=== PATIENT | female | born 1935 | race Caucasian/White ===

== ENCOUNTER 2019-08-13 06:00 | Outpatient (RCR) | payer MEDICARE, OTHER, SELFPAY | END 2019-09-11 23:59 | disposition home or self-care (01) | LOC: SPT 06:00 | PROVIDERS: Family Provider Electrodiagnostic Medicine; PCP Electrodiagnostic Medicine; Referring Provider Electrodiagnostic Medicine; Visit Provider Electrodiagnostic Medicine | DX: R60.0 Localized edema (principal); I89.0 Lymphedema, not elsewhere classified | CPT/HCPCS: 97140; 97161 ==

== ENCOUNTER 2019-08-13 08:09 | Outpatient (CLI) | payer MEDICARE, OTHER, SELFPAY ==
--- NOTE | 2019-08-13 | USCV_ITS ---
Gómez Sheila Age: 84 Gender: F : 1935 Exam Date: 08/13/2019 09:31 Ordering Phys: Delvis Ortiz DO Technologist: Radha Muller Exam Location: [facility] [place] Indication: MURMUR BP: / HR: 74 Rhythm: Sinus Technical Quality: Technically difficult study MEASUREMENTS (Male / Female) Normal Values 2D ECHO LV Diastolic Diameter PLAX 4.9 cm 4.2 - 5.9 / 3.9 - 5.3 cm LV Systolic Diameter PLAX 3.8 cm LV Chamber Size 3.6 cm IVS Diastolic Thickness 1.0 cm 0.6 - 1.0 / 0.6 - 0.9 cm IVS Systolic Thickness 1.6 cm LVPW Diastolic Thickness 1.4 cm 0.6 - 1.0 / 0.6 - 0.9 cm LVPW Systolic Thickness 2.1 cm RV Chamber Size 2.7 cm LVOT Diameter 2.0 cm LV Ejection Fraction 2D Teich 47.1 % LV Ejection Fraction MOD 2C 66.3 % LV Ejection Fraction 2C AL 62.8 % LA Diameter 4.5 cm LA Width 3.4 cm LA Height 5.1 cm RA Width 2.8 cm RA Height 6.6 cm Aorta at Sinotubular Diameter 3.3 cm M-MODE LV Diastolic Diameter MM 4.9 cm 4.2 - 5.9 / 3.9 - 5.3 cm LV Systolic Diameter MM 2.8 cm LV Ejection Fraction MM Teich 74.1 % IVS Diastolic Thickness MM 1.4 cm 0.6 - 1.0 / 0.6 - 0.9 cm IVS Systolic Thickness MM 1.6 cm LVPW Diastolic Thickness MM 1.6 cm 0.6 - 1.0 / 0.6 - 0.9 cm LVPW Systolic Thickness MM 1.9 cm RV Diastolic Diameter MM 2.4 cm Aortic Annulus Diameter 3.9 cm LA Ao Ratio MM 1.2 MV E Point Septal Separation 0.6 cm DOPPLER AV Peak Velocity 182.0 cm/s LVOT Peak Velocity 90.0 cm/s AV Area Cont Eq vti 1.9 cm squared AV Area Cont Eq pk 1.6 cm squared MV Area PHT 4.0 cm squared Mitral E to A Ratio 1.2 MV E' Velocity 9.0 cm/s Mitral E to MV E' Ratio 13.2 Mitral E to LV E' Lateral Ratio 11.2 Mitral E to LV E' Septal Ratio 16.0 TR Peak Velocity 264.9 cm/s TR Peak Gradient 28.1 mmHg TR Mean Velocity 198.8 cm/s TR Mean Gradient 18.5 mmHg TR Velocity Time Integral 81.2 cm TV Peak E Velocity 70.0 cm/s Right Atrial Pressure 15.0 mmHg Pulmonary Artery Systolic Pressu 43.1 mmHg PV Peak Velocity 86.0 cm/s RV Acceleration Time 0.2 s RV Ejection Time 0.4 s RV AcT/ET 0.5 FINDINGS Left Ventricle Normal left ventricular cavity size. Normal left ventricular systolic function. No regional wall motion abnormalities. Left ventricular ejection fraction is estimated at 60 %. Grade I/IV diastolic dysfunction (abnormal relaxation filling pattern), normal to mildly elevated filling pressures. Right Ventricle The right ventricle is normal in size and function. RVSP could not be calculated due to incomplete tricuspid regurgitation velocity profile. Right Atrium The right atrium is normal in size. Left Atrium Moderately increased left atrial size. Mitral Valve Mildly thickened mitral valve. Moderate mitral annular calcification. No mitral valve stenosis. Trace mitral valve regurgitation. Aortic Valve Structurally normal aortic valve without significant sclerosis or stenosis. There is no aortic regurgitation. Tricuspid Valve Structurally normal tricuspid valve without significant stenosis or regurgitation. Pulmonary artery systolic pressure is normal. Pulmonic Valve Structurally normal pulmonic valve without significant stenosis. There is no pulmonic regurgitation. Pericardium Normal pericardium without effusion. Aorta Normal ascending aorta dimension. CONCLUSIONS 1-Normal left ventricular cavity size. Normal left ventricular systolic function. No regional wall motion abnormalities. Left ventricular ejection fraction is estimated at 60 %. Grade I/IV diastolic dysfunction (abnormal relaxation filling pattern), normal to mildly elevated filling pressures. 2-Moderately increased left atrial size. 3-The right ventricle is normal in size and function. RVSP could not be calculated due to incomplete tricuspid regurgitation velocity profile. 4-There is no pericardial effusion. 5-There are no prior echocardiogram studies to compare. Brock Hoover MD (Electronically Signed) Final Date: 13 August 2019 14:49 S
== END 2019-08-13 08:10 | disposition home or self-care (01) ==
LOC: RAD 08:22
PROVIDERS: PCP Electrodiagnostic Medicine; Visit Provider Electrodiagnostic Medicine
DX: I51.7 Cardiomegaly (principal); R01.1 Cardiac murmur, unspecified; R59.1 Generalized enlarged lymph nodes; R60.0 Localized edema
CPT/HCPCS: 93306

== ENCOUNTER 2019-08-25 13:58 | Outpatient (CLI) | payer MEDICARE, OTHER, SELFPAY ==
--- NOTE | 2019-08-26 10:25 | ONC CON_ITS ---
Dr. Aguila New Patient Note Patient: Sheila Magaña Unit #: [id number]: 1935 Dicatated By: Ray Aguila M.D.Date of Visit: Aug 25, 2019 Onc MED New Patient/Consult Referring Physician: Dr. Delvis Ortiz M.D. Chief Complaint: Anemia and thrombocytopenia. History of Present Illness: This is an 84 year-old woman with a mild anemia and thrombocytopenia. She has hypertension, dyslipidemia, and chronic kidney disease. Her main problem recently is that she has been having severe swelling in the lower extremities. She currently is on diuretic therapy with a combination of furosemide and spironolactone, and she has started physical therapy for lymphedema. Her echocardiogram on 08/13/2019 showed normal left ventricular systolic function with estimated ejection fraction of 60%. There were no significant valve abnormalities noted. Her recent laboratory studies from 08/11/2019 included CBC showing hemoglobin low at 10.2 g with hematocrit 28.8%. The red cell indices were in the upper normal range. The white blood cell count was 5000 with the differential showing 67% neutrophils, 21% lymphocytes, and 9% monocytes. The platelet count was low at 70,000. Comprehensive metabolic profile showed elevated BUN and creatinine at 26 and 1.53 mg/dL. Bilirubin was mildly elevated at 2.2 mg/dL with alkaline phosphatase also mildly elevated 153/130 U/L. The SGOT was also slightly elevated. Albumin was low at 3.0 g/dL. TSH was normal at 2.83 mIU/L. Her BNP level was just mildly elevated at 300 pg/mL. She has very limited activity, which appears to be due to a combination of weakness, back pain, shortness of breath, and the swelling. She is able to get up and around, but she does very little housework now. ECOG score is 2. She does not have much appetite, but she has had significant weight gain, by her estimate in the range of at least 30 pounds. She does not have fever or night sweats. She says she falls asleep very easily during the daytime. She is known to have obstructive sleep apnea and in the past she had been on CPAP. She says she stopped using it because it caused too much dryness. She did not think it was helping. She has cough and she has shortness of breath with activity. She sometimes hears her heart beating. She does not complain of chest pain. She was having acid reflux, but it has improved. She recently has had diarrhea, but she that seems to be getting better with Metamucil. She has urinary frequency and urgency, and she has some associated incontinence. She says she has pain all over, particularly in her knees. She has been having muscle cramps in the hip area. She does not complain of headache. She has had episodes of vertigo. She says the fingertips on both hands have not been feeling normal. She normally does bruise easily, and she has not had other bleeding manifestations. Past Medical History: Her medical history includes anxiety/depression, degenerative arthritis, dyslipidemia, fibromyalgia, gastroesophageal reflux disease, gout, hypertension, narcolesy, obstructive sleep apnea, vitamin B12 deficiency, and vitamin D deficiency. Past Surgical History: Her surgical/procedural history includes appendectomy, bilateral cataract excisions, cholecystectomy, excision of sebaceous cyst x 2, and laser surgery left eye. Medications: Atenolol 1 Tablet (of 25 mg) Oral daily, Furosemide 1 Tablet (of 40 mg) Oral b.i.d., Pantoprazole Sodium 1 Tablet (of 40 mg) Tablet, enteric coated Oral daily, Spironolactone 1 Tablet (of 25 mg) Oral daily, Vitamin D3 1 Capsule Oral daily Allergies: No Known Allergies. Social History: Ms. Magaña is . She is retired. 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 She had smoked some and she had some alcohol use when she was much younger, but she quit both many years ago. Family History: Father of cancer at age 52, type unknown to the patient. Mother of sepsis 1 week after the patient's . She had no siblings. A maternal cousin of prostate cancer. Review Of Symptoms: Constitutional - She has very limited activity, but she is up and around. She does a little bit of light work at home. She does not have much appetite. She recently had significant weight gain, at least 30 pounds or more. She does not have fever or night sweats. She complains that she gets really cold on the inside. ECOG score is 2, Eyes - She recently has had laser surgery on the left eye, ENMT - She has not had hearing loss or tinnitus. She has congestion. No mouth sores. No sore throat or difficulty swallowing, Hematologic/Lymphatic - No abnormal bruising or bleeding, Respiratory - She has shortness of breath with activity. She has cough. No pleuritic pain or hemoptysis, Cardiovascular - No angina pain. No palpitations. She sometimes hears her heart beating, Gastrointestinal - No nausea or vomiting. She was having acid reflux, but lately it has been better. She has been having diarrhea, but that is getting better with Metamucil. No blood in the stool or black stools, Genitourinary (F) - No dysuria or hematuria. She has urinary frequency with urgency and with some incontinence, Musculoskeletal - She has pain all over. The most significant is seen in her back, which does limit her activity. She also has pain in her knees. Lately she has been having muscle cramps in the hip area, Integumentary - She had developed weeping skin ulcerations on both legs, but those are healing, Neurologic - No headache. She has had episodes of vertigo. She says the fingertips of both hands don't feel normal, Psychiatric - She has anxiety and depression. Lately she has been feeling down. She has difficulty staying awake during the daytime. Vital Signs: Performed on Aug 25, 2019 15:09: 0, 52.89 (HIGH), 2.29 sq.m, 63.00 in, 99 %, 63 /min, 26 /min, 130/49 mm(hg), 98.0 F (LOW), and 298.6 lbs (HIGH). Physical Examination: Constitutional - She appears generally weak, but not acutely ill, Eyes - Sclerae nonicteric. Conjunctivae clear, ENMT - No lesions noted in the oral cavity, Neck - No mass or thyromegaly, Hematologic/Lymphatic - No cervical, clavicular, or axillary adenopathy, Respiratory - Lungs sound clear with good air movement bilaterally, Cardiovascular - Heart rhythm is regular. There is a II/ systolic murmur. There is no gallop or rub noted, Abdomen - Distended. Liver and spleen are not overtly enlarged. There is no abdominal mass or noted and there is no obvious ascites. There is no inguinal adenopathy, Back/Spine - No spine or CVA tenderness noted, Extremities - There is 3 to 4+ lower extremity edema. Both legs are wrapped. I am not able to palpate pedal pulses, Integumentary - There are a few scattered ecchymoses. There are no petechiae noted. There are no suspicious skin lesions noted, Neurologic - No focal neurologic deficits noted. Impression: 1. Patient with mild anemia and thrombocytopenia. The cause is uncertain. The most likely causes would be occult liver disease/hypersplenism or myelodysplastic syndrome. 2. She has severe lower extremity edema. I do not think that a specific cause has been determined. 3. She has mildly elevated total bilirubin and slightly elevated liver enzymes. The cause/clinical significance is uncertain. Her other medical illnesses include: 4. Hypertension. 5. Hyperlipidemia. 6. Chronic kidney disease. 7. GERD. 8. Obstructive sleep apnea and excessive daytime somnolence. 9. Degenerative arthritis. 10. Fibromyalgia. 11. History of gout. 12. Vitamin B12 deficiency, for which she has been on replacement therapy. 13. Vitamin D deficiency. 14. Anxiety/depression. Plan: The laboratory findings and clinical implications were reviewed with the patient. She will be scheduled to have additional laboratory studies to include CBC, comprehensive metabolic profile, reticulocyte count, LDH level, haptoglobin level, serum iron studies and ferritin, folate level, sed rate, serum protein electrophoresis, and free light chain assay. I will check a hepatitis profile and I will review the blood smear. She also will be scheduled for CT abdomen/pelvis. She will have further evaluation as indicated. Ultimately, she may need to undergo bone marrow aspiration/biopsy. Signed By: Ray Aguila M.D. <<Signature on File>>
== END 2019-08-25 13:59 | disposition home or self-care (01) ==
LOC: ONCMED 13:59
PROVIDERS: Family Provider Electrodiagnostic Medicine; PCP Electrodiagnostic Medicine; Referring Provider Electrodiagnostic Medicine; Visit Provider Internal Medicine Medical Oncology
DX: D69.6 Thrombocytopenia, unspecified (principal); E78.5 Hyperlipidemia, unspecified; I12.9 Hypertensive chronic kidney disease with stage 1 through stage 4 chronic kidney disease, or unspecified chronic kidney disease; N18.9 Chronic kidney disease, unspecified; I89.0 Lymphedema, not elsewhere classified; F41.8 Other specified anxiety disorders; M19.90 Unspecified osteoarthritis, unspecified site; M79.7 Fibromyalgia; K21.9 Gastro-esophageal reflux disease without esophagitis; M10.9 Gout, unspecified; G47.33 Obstructive sleep apnea (adult) (pediatric); E53.8 Deficiency of other specified B group vitamins; E55.9 Vitamin D deficiency, unspecified; R17 Unspecified jaundice; R74.8 Abnormal levels of other serum enzymes; Z79.899 Other long term (current) drug therapy
CPT/HCPCS: 99205

== ENCOUNTER 2019-08-26 14:04 | Outpatient (RCR) | payer MEDICARE, OTHER, SELFPAY ==
[2019-08-26 15:50] LABS: Basophils % 0.2 %; Eosinophils # 0.1 10^3/uL (0.0-0.8); Eosinophils % 2.6 %; Hematocrit 29.5 % (37.0-47.0); Hemoglobin 9.5 g/dL (11.5-15.3); Lymphocytes # 1.5 10^3/uL (0.8-4.8); Lymphocytes % 29.5 %; Mean Corpuscular HGB Conc 32.2 g/dL (30.0-36.0); Mean Corpuscular Hemoglobin 33.6 pg (28.0-34.0); Mean Corpuscular Volume 104.2 fL (81-99); Monocytes # 0.5 10^3/uL (0.2-0.9); Monocytes % 8.8 %; Neutrophils % 58.7 %; Nucleated Red Blood Cells % 0 %; Platelet Count 71 10^3/cmm (130-400); Red Blood Count 2.83 10^6/uL (4.1-5.3); Red Cell Distribution Width 15.2 % (12.1-15.1); White Blood Count 5.1 10^3/uL (4.0-10.0)
[2019-08-26 15:52] LABS: Alanine Aminotransferase 20 U/L (0-33); Albumin Level 3.2 g/dL (3.5-5.2); Alkaline Phosphatase 160 IU/L (35-105); Anion Gap 16.7 (5-19); Aspartate Amino Transferase 39 U/L (0-32); Blood Urea Nitrogen 22 mg/dL (8-23); Calcium 9.9 mg/Dl (8.8-10.2); Carbon Dioxide 24 mmol/L (22-29); Chloride 104 mmol/L (98-107); Ferritin 88 ng/mL (15-150); Globulin 2.8 g/dL (1.3-4.6); Glucose 140 mg/dL (74-106); Iron 67 ug/dL (37-145); Lactate Dehydrogenase 332 U/L (135-214); Percent Saturation 32.3 % (20-50); Potassium 3.7 mmol/L (3.5-5.1); Sodium 141 mmol/L (136-145); Total Bilirubin 2.3 mg/dL (0.15-1.2); Total Iron Binding Capacity 207 mg/dL; Unsaturated Iron Binding 140 ug/dL (112-347)
[2019-08-26 16:31] LABS: Erythrocyte Sedimentation Rate 22 mm/hr (0-15)
[2019-08-27 08:10] LABS: Hepatitis A Antibody IgM. Non-Reactive (Nonreactive); Hepatitis B Surface AB. 3.5 (0-8.5); Hepatitis B Surface Antigen. Non-Reactive (Nonreactive); Hepatitis C Virus Antibody Non-Reactive (Nonreactive)
[2019-08-27 10:06] LABS: Folate Level 7.2 ng/mL (4.8-37.3)
[2019-08-27 15:36] LABS: ALBUMIN 2.9 g/dL (3.8-4.8); ALPHA 1 GLOBULIN 0.3 g/dL (0.2-0.3); ALPHA 2 GLOBULIN 0.5 g/dL (0.5-0.9); BETA 1 GLOBULIN 0.3 g/dL (0.4-0.6); BETA 2 GLOBULIN 0.3 g/dL (0.2-0.5); GAMMA GLOBULIN 1.7 g/dL (0.8-1.7); KAPPA LIGHT CHAIN, FREE, SERUM 94.4 mg/L (3.3-19.4); KAPPA/LAMBDA LIGHT CHAINS FREE 1.54 (0.26-1.65); LAMBDA LIGHT CHAIN, FREE, SERU 61.2 mg/L (5.7-26.3); PROTEIN, TOTAL 5.9 g/dL (6.1-8.1)
== END 2019-09-11 23:59 | disposition home or self-care (01) ==
LOC: ONCMED 14:04
PROVIDERS: Family Provider Electrodiagnostic Medicine; PCP Electrodiagnostic Medicine; Visit Provider Internal Medicine Medical Oncology
DX: D64.9 Anemia, unspecified (principal); D69.6 Thrombocytopenia, unspecified; R79.89 Other specified abnormal findings of blood chemistry; R17 Unspecified jaundice
CPT/HCPCS: 80053; 82728; 82746; 83010; 83540; 83550; 83615; 83883; 84155; 84165; 85025; 85045; 85651; 86705; 86706; 86709; 86803; 87340

== ENCOUNTER 2019-08-31 08:23 | Outpatient (CLI) | payer MEDICARE, OTHER, SELFPAY ==
--- NOTE | 2019-08-31 08:35 | CT_ITS ---
WS: [id number] CT ABDOMEN PELVIS TECHNIQUE: Contrast-enhanced CT of the abdomen and pelvis with coronal and sagittal reformatted image s. CLINICAL INFORMATION: ANEMIA/EDEMA/ELEVATED BILIBURN LIVER ENZYMES COMPARISON: None. DLP: 2004.[address] scans at [facility] use at least one of these dose optimization techniques: automat ed exposure control; mA and/or kV adjustment per patient size (includes targeted exams where dose is matched to clinical indication); or iterative reconstruction. FINDINGS: Cirrhotic configuration to the liver with capsular nodularity. Mild perihepatic and perisplenic ascit es. Findings compatible with cirrhosis and portal hypertension. Splenomegaly. Spleen measures 19 cm p ole-to-pole. 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 Gastroesophageal varices. Lung bases are well aerated. Slight atelectasis in the lung bases. Diffuse body wall anasarca. Divert iculosis. No evidence of acute diverticulitis. No evidence of small or large bowel obstruction. Fatty atrophy of the pancreas. Abdominal aortic calcification. Renal cortical atrophy. Adrenal glands are normal. Lumbar scoliosis convex left. CT/CT abdomen pelvis w con* [id number] IMPRESSION: 1. Cirrhotic configuration to the liver with splenomegaly consistent with port al hypertension. 2. Multiple varices in the upper abdomen and gastroesophageal junction. 3. Mild to moderate perihepatic and perisplenic ascites. 4. Diffuse body wall anasarca. Small amount of pelvic ascites. 5. Diverticulosis. No evidence of acute diverticulitis
[2019-08-31] MEDS: iohexol 300 mg/mL 50 mL Btl IV (08:54)
[2019-08-31] MEDS: iodixanol 320 mg/mL 100mL Btl IV (10:31)
== END 2019-08-31 08:24 | disposition home or self-care (01) ==
LOC: RAD 08:31
PROVIDERS: Family Provider Electrodiagnostic Medicine; PCP Electrodiagnostic Medicine; Visit Provider Internal Medicine Medical Oncology
DX: D64.9 Anemia, unspecified (principal); R74.8 Abnormal levels of other serum enzymes; R60.9 Edema, unspecified; R16.1 Splenomegaly, not elsewhere classified; R60.1 Generalized edema; R18.8 Other ascites; K57.90 Diverticulosis of intestine, part unspecified, without perforation or abscess without bleeding; I86.4 Gastric varices
CPT/HCPCS: 74177

== ENCOUNTER 2019-09-12 06:00 | Outpatient (RCR) | payer MEDICARE, OTHER, SELFPAY | END 2019-10-10 23:59 | disposition home or self-care (01) | LOC: SPT 06:00 | PROVIDERS: Family Provider Electrodiagnostic Medicine; PCP Electrodiagnostic Medicine; Referring Provider Electrodiagnostic Medicine; Visit Provider Electrodiagnostic Medicine | DX: R59.1 Generalized enlarged lymph nodes (principal); R60.0 Localized edema; R01.1 Cardiac murmur, unspecified | CPT/HCPCS: 97140; 97530 ==

== ENCOUNTER → 2019-09-23 12:25 | Outpatient (BNVA) | payer MEDICARE, OTHER, SELFPAY | PROVIDERS: Family Provider Electrodiagnostic Medicine; PCP Electrodiagnostic Medicine; Visit Provider Internal Medicine Cardiovascular Disease | DX: I50.33 Acute on chronic diastolic (congestive) heart failure (principal); R06.02 Shortness of breath; R07.9 Chest pain, unspecified | CPT/HCPCS: 80048; 83880; 85025 ==

== ENCOUNTER 2019-10-23 | Outpatient (RCR) | payer MEDICARE, OTHER, SELFPAY | END 2019-10-24 | disposition home or self-care (01) | LOC: SPT | PROVIDERS: PCP Electrodiagnostic Medicine; Referring Provider Electrodiagnostic Medicine; Visit Provider Electrodiagnostic Medicine | DX: R59.1 Generalized enlarged lymph nodes (principal); R60.0 Localized edema | CPT/HCPCS: 97140 ==

== ENCOUNTER 2019-10-23 17:42 | Inpatient (IN) | payer MEDICARE, OTHER, SELFPAY ==
[2019-10-23 17:31] VITALS: BMI 53.3
[2019-10-23 17:37] VITALS: BP 127/72; PULSE 65; RESP 20; TEMP 36.9; O2SAT 98
--- NOTE | 2019-10-23 17:45 | ED_ITS ---
Documented by User: Bud Mcallister DO 10/25/19 23:36 HPI - Weakness General: Chief complaint: Weakness Stated complaint: NOT FEELING WELL Time Seen by Provider: 10/23/19 17:45 History of Present Illness: HPI Narrative: 84-year-old female brought in by EMS attended by family. She has been very weak lately she fell a couple of days ago with some bruising and left mu-ism is not any vomiting since and also some pain on the left lower ribs. She denies any difficulty speech or swallowing family had called her primary care doctor there is some concern about her having a stroke and she was instructed to call EMS and come to the emergency room on arrival here she is awake alert oriented x3 actually provides a relatively good history. She has had some congestive heart failure problems really is recently has been seen by cardiology and internal medicine as well as her primary care doctor. She denies any dysuria urgency or frequency but does have some urinary incontinence at times it is not a new finding. No hematochezia melena hematemesis or coffee-ground emesis. She has generally been weakened and having increasing difficulty with mobilization ADLs at her home. Complaint: generalized weakness and difficulty walking Onset (ago): month(s) Location: generalized Severity: moderate Relieving factors: rest Exacerbating factors: exertion Associated symptoms: Denies chest pain, chills, dark stools, dysuria, fever(s), nausea or vomiting Review of Systems Const: Reports: fatigue and malaise; Denies: fever, chills, body aches or change in appetite ENMT: Denies: throat pain, ear pain, nasal discharge or nasal congestion Card: Reports: edema, shortness of breath on exertion and shortness of breath when lying down; Denies: chest pain Resp: Reports: shortness of breath; Denies: productive cough or non-productive cough GI: Denies: abdominal pain, nausea, vomiting, vomiting blood, coffee grounds in vomit, diarrhea, constipation, bloating, blood in stool or black tarry stool : Denies: flank pain, difficulty urinating, painful urination, urinary frequency or urinary urgency Skin/Breast: Denies: rash or itching Neuro: Reports: weakness in extremities and difficulty walking [facility] ED PFSH: Medical History Acute on chronic diastolic (congestive) heart failure The EKG revealed sinus rhythm with poor R wave progression. No acute ST-T changes Ascites Cirrhosis of liver with ascites Diabetes Fibromyalgia GERD (gastroesophageal reflux disease) Heart murmur, systolic Hyperlipidemia Hypertension Localized swelling of both lower legs Narcolepsy Osteoarthritis Sleep apnea Vitamin B12 deficiency Vitamin D deficiency Surgical History History of appendectomy History of cataract surgery Hx of cholecystectomy Family History Father Cancer Denies family history of Clotting disorder Chronic kidney disease (CKD) Social History Smoking and tobacco status: former smoker Quit status (tobacco): has quit using tobacco Former quit date comment: She quit smoking when she was young Alcohol intake: never Substance/Drug Use: never Marital status: History of recent travel: No Current gender identity: Female Physical Exam Const: COMMON NORMALS: no apparent distress GENERAL APPEARANCE: cooperative and comfortable ORIENTATION/CONSCIOUSNESS: Yes awake HENMT: COMMON NORMALS: normocephalic, head/scalp atraumatic, hearing grossly normal bilaterally, nasal mucous membranes and turbinates normal, moist oral mucous membranes and oropharynx normal HEAD & SCALP: normocephalic and atraumatic NOSE: nasal mucous membranes and turbinates normal Eye: COMMON NORMALS: PERRL, EOMs intact bilaterally, conjunctivae normal and no scleral icterus CONJUNCTIVA: Yes conjunctivae normal PUPIL: Yes PERRL Neck/C-Spine: COMMON NORMALS: full ROM, no lymphadenopathy, supple and no JVD Lymph: LYMPHATIC: no lymphadenopathy noted and no lymphedema noted Resp: COMMON NORMALS: normal respiratory effort, no retractions, no use of accessory muscles and clear to auscultation bilaterally AUSCULTATION: clear to auscultation bilaterally Cardio: COMMON NORMALS: no JVD, regular rate, regular rhythm and no murmurs RATE: regular rate RHYTHM: regular rhythm GI: COMMON NORMALS: soft to palpation and no hepatosplenomegaly AUSCULTATION: Yes normoactive bowel sounds PALPATION: Yes soft, No tender, No guarding and Yes no hepatosplenomegaly Extremity: COMMON NORMALS: normal to inspection, normal capillary refill, no clubbing, cyanosis or edema, no calf tenderness and no pedal edema Neuro: OTHER: No focal neurologic deficits are noted. Skin: COMMON NORMALS: no rashes or lesions noted GENERAL SKIN EXAM: no rashes or lesions noted Course ED course: Care turned over to Dr. Hancock at change of shift. Vital Signs: Vital signs: Vital Signs Temperature 97.7 F 10/25/19 20:00 Pulse Rate 69 10/25/19 20:00 Respiratory Rate 24 H 10/25/19 20:00 Blood Pressure 148/72 10/25/19 20:00 Pulse Oximetry 88 L 10/25/19 20:00 MDM - Weakness Lab Data: Labs: Lab Results 10/23/19 10/23/19 10/23/19 Range/Units 18:04 18:04 18:04 WBC 5.7 (4.0-10.0) 10^3/ uL RBC 3.07 L (4.1-5.3) 10^6/u L Hgb 10.5 L (11.5-15.3) g/dL Hct 31.8 L (37.0-47.0) % MCV 103.6 H (81-99) fL MCH 34.2 H (28.0-34.0) pg MCHC 33.0 (30.0-36.0) g/dL RDW 15.9 H (12.1-15.1) % Plt Count 79 L (130-400) 10^3/c mm MPV 11.4 H (7.4-10.4) fL Neut % (Auto) 59.4 % Lymph % (Auto) 28.5 % [place] % (Auto) 9.3 % Eos % (Auto) 2.1 % Baso % (Auto) 0.5 % Neut # (Auto) 3.4 (1.8-7.7) 10^3/u L Lymph # (Auto) 1.6 (0.8-4.8) 10^3/u L [place] # (Auto) 0.5 (0.2-0.9) 10^3/u L Eos # (Auto) 0.1 (0.0-0.8) 10^3/u L Baso # (Auto) 0.0 (0.0-0.1) 10^3/u L Nucleated RBC % (a uto) 0 % Nucleated RBCs # 0.0 /100WBC Sodium 144 (136-145) mmol/L Potassium 3.2 L (3.5-5.1) mmol/L Chloride 101 (98-107) mmol/L Carbon Dioxide 30 H (22-29) mmol/L Anion Gap 16.2 (5-19) BUN 24 H (8-23) mg/dL Creatinine 1.6 H (0.5-0.9) mg/dL Glucose 108 (65-115) mg/dL Calculated Osmolal ity 295 (285-295) mOsm/k g Calcium 10.5 (8.5-10.5) mg/dL Total Bilirubin 3.7 H (0.15-1.2) mg/dL AST 47 H (0-32) U/L ALT 27 (0-33) U/L Alkaline Phosphata se 156 H (35-105) IU/L Creatine Kinase (26-192) U/L Troponin T Baselin e 11 H (0-10) ng/mL Troponin T 120 Min [place] (0-10) ng/mL Delta Troponin T (0-10) ABS# NT-Pro-B Natriuret Pep 761 H (0-450) pg/mL Total Protein 6.9 (6.6-8.7) g/dL Albumin 3.1 L (3.5-5.2) g/dL Globulin 3.8 (1.3-4.6) g/dL Vitamin B12 (232-1245) pg/mL Urine Color (Yellow) Urine Appearance (CLEAR) Urine pH (5-7) Ur Specific Gravit y (1.005-1.030) Urine Protein (Negative) Urine Glucose (UA) (Normal) Urine Ketones (Negative) Urine Blood (Negative) Urine Nitrate (Negative) Urine Bilirubin (NEGATIVE) Urine Urobilinogen (Negative) mg/dL Ur Leukocyte Shaniqua ase (Negative) 10/23/19 10/23/19 10/23/19 Range/Units 19:45 19:45 19:51 WBC (4.0-10.0) 10^3/ uL RBC (4.1-5.3) 10^6/u L Hgb (11.5-15.3) g/dL Hct (37.0-47.0) % MCV (81-99) fL MCH (28.0-34.0) pg MCHC (30.0-36.0) g/dL RDW (12.1-15.1) % Plt Count (130-400) 10^3/c mm MPV (7.4-10.4) fL Neut % (Auto) % Lymph % (Auto) % [place] % (Auto) % Eos % (Auto) % Baso % (Auto) % Neut # (Auto) (1.8-7.7) 10^3/u L Lymph # (Auto) (0.8-4.8) 10^3/u L [place] # (Auto) (0.2-0.9) 10^3/u L Eos # (Auto) (0.0-0.8) 10^3/u L Baso # (Auto) (0.0-0.1) 10^3/u L Nucleated RBC % (a uto) % Nucleated RBCs # /100WBC Sodium (136-145) mmol/L Potassium (3.5-5.1) mmol/L Chloride (98-107) mmol/L Carbon Dioxide (22-29) mmol/L Anion Gap (5-19) BUN (8-23) mg/dL Creatinine (0.5-0.9) mg/dL Glucose (65-115) mg/dL Calculated Osmolal ity (285-295) mOsm/k g Calcium (8.5-10.5) mg/dL Total Bilirubin (0.15-1.2) mg/dL AST (0-32) U/L ALT (0-33) U/L Alkaline Phosphata se (35-105) IU/L Creatine Kinase (26-192) U/L Troponin T Baselin e (0-10) ng/mL Troponin T 120 Min [place] 11.11 H (0-10) ng/mL Delta Troponin T 0.11 (0-10) ABS# NT-Pro-B Natriuret Pep (0-450) pg/mL Total Protein (6.6-8.7) g/dL Albumin (3.5-5.2) g/dL Globulin (1.3-4.6) g/dL Vitamin B12 1357 H (232-1245) pg/mL Urine Color Yellow (Yellow) Urine Appearance Clear (CLEAR) Urine pH 7 (5-7) Ur Specific Gravit y 1.010 (1.005-1.030) Urine Protein Neg (Negative) Urine Glucose (UA) Norm (Normal) Urine Ketones Negative (Negative) Urine Blood Neg (Negative) Urine Nitrate Negative (Negative) Urine Bilirubin Neg (NEGATIVE) Urine Urobilinogen Norm (Negative) mg/dL Ur Leukocyte Shaniqua ase Negative (Negative) 10/24/19 10/24/19 10/24/19 Range/Units 04:40 04:40 12:55 WBC 4.9 (4.0-10.0) 10^3/ uL RBC 2.83 L (4.1-5.3) 10^6/u L Hgb 9.7 L (11.5-15.3) g/dL Hct 29.2 L (37.0-47.0) % MCV 103.2 H (81-99) fL MCH 34.3 H (28.0-34.0) pg MCHC 33.2 (30.0-36.0) g/dL RDW 15.9 H (12.1-15.1) % Plt Count 69 L (130-400) 10^3/c mm MPV 11.2 H (7.4-10.4) fL Neut % (Auto) 57.0 % Lymph % (Auto) 29.6 % [place] % (Auto) 10.3 % Eos % (Auto) 2.3 % Baso % (Auto) 0.6 % Neut # (Auto) 2.8 (1.8-7.7) 10^3/u L Lymph # (Auto) 1.4 (0.8-4.8) 10^3/u L [place] # (Auto) 0.5 (0.2-0.9) 10^3/u L Eos # (Auto) 0.1 (0.0-0.8) 10^3/u L Baso # (Auto) 0.0 (0.0-0.1) 10^3/u L Nucleated RBC % (a uto) 0 % Nucleated RBCs # 0.0 /100WBC Sodium 143 (136-145) mmol/L Potassium 3.7 (3.5-5.1) mmol/L Chloride 101 (98-107) mmol/L Carbon Dioxide 31 H (22-29) mmol/L Anion Gap 14.7 (5-19) BUN 26 H (8-23) mg/dL Creatinine 1.5 H (0.5-0.9) mg/dL Glucose 98 (65-115) mg/dL Calculated Osmolal ity 293 (285-295) mOsm/k g Calcium 10.1 (8.5-10.5) mg/dL Total Bilirubin 3.6 H (0.15-1.2) mg/dL AST 44 H (0-32) U/L ALT 24 (0-33) U/L Alkaline Phosphata se 131 H (35-105) IU/L Creatine Kinase 96 (26-192) U/L Troponin T Baselin e (0-10) ng/mL Troponin T 120 Min [place] (0-10) ng/mL Delta Troponin T (0-10) ABS# NT-Pro-B Natriuret Pep (0-450) pg/mL Total Protein 6.3 L (6.6-8.7) g/dL Albumin 2.8 L (3.5-5.2) g/dL Globulin 3.5 (1.3-4.6) g/dL Vitamin B12 (232-1245) pg/mL Urine Color (Yellow) Urine Appearance (CLEAR) Urine pH (5-7) Ur Specific Gravit y (1.005-1.030) Urine Protein (Negative) Urine Glucose (UA) (Normal) Urine Ketones (Negative) Urine Blood (Negative) Urine Nitrate (Negative) Urine Bilirubin (NEGATIVE) Urine Urobilinogen (Negative) mg/dL Ur Leukocyte Shaniqua ase (Negative) Discharge Plan Discharge Patient Disposition: Admitted As Inpatient Admit Provider: Brock Almanzar Referrals: Delvis Ortiz DO [Primary Care Provider] - Discharge Date/Time: 10/23/19 21:37 Coding Level of Care Code ED Kiln Stacker for Chg Fwd Exam Comprehensive Documented by User: Jordan Hancock DO 10/23/19 21:48 HPI - Weakness General: Chief complaint: Weakness Stated complaint: NOT FEELING WELL Time Seen by Provider: 10/23/19 17:45 PFSH ED PFSH: Medical History Acute on chronic diastolic (congestive) heart failure The EKG revealed sinus rhythm with poor R wave progression. No acute ST-T changes Ascites Cirrhosis of liver with ascites Diabetes Fibromyalgia GERD (gastroesophageal reflux disease) Heart murmur, systolic Hyperlipidemia Hypertension Localized swelling of both lower legs Narcolepsy Osteoarthritis Sleep apnea Vitamin B12 deficiency Vitamin D deficiency Surgical History History of appendectomy History of cataract surgery Hx of cholecystectomy Family History Father Cancer Denies family history of Clotting disorder Chronic kidney disease (CKD) Social History Smoking and tobacco status: former smoker Quit status (tobacco): has quit using tobacco Former quit date comment: She quit smoking when she was young Alcohol intake: never Substance/Drug Use: never Marital status: History of recent travel: No Current gender identity: Female Course Consultations: Consultation #1: vero Time: 20:40 Vital Signs: Vital signs: Vital Signs Temperature 97.7 F 10/25/19 20:00 Pulse Rate 69 10/25/19 20:00 Respiratory Rate 24 H 10/25/19 20:00 Blood Pressure 148/72 10/25/19 20:00 Pulse Oximetry 88 L 10/25/19 20:00 MDM - Weakness MDM Narrative: Medical decision making narrative: 84-year-old female presents with generalized weakness. She evidently had an episode of significant mental status change with weakness earlier today. She is essentially back to baseline now, although she is terribly generally weak. Her potassium is mildly low. Her labs are not terribly remarkable otherwise. Chest x-ray with rib series done because of a fall, do not reveal a displaced rib fracture. There may be a mild lung contusion. She does not have a urinary tract infection. She will be observed for generalized weakness. Lab Data: Labs: Lab Results 10/23/19 10/23/19 10/23/19 Range/Units 18:04 18:04 18:04 WBC 5.7 (4.0-10.0) 10^3/ uL RBC 3.07 L (4.1-5.3) 10^6/u L Hgb 10.5 L (11.5-15.3) g/dL Hct 31.8 L (37.0-47.0) % MCV 103.6 H (81-99) fL MCH 34.2 H (28.0-34.0) pg MCHC 33.0 (30.0-36.0) g/dL RDW 15.9 H (12.1-15.1) % Plt Count 79 L (130-400) 10^3/c mm MPV 11.4 H (7.4-10.4) fL Neut % (Auto) 59.4 % Lymph % (Auto) 28.5 % [place] % (Auto) 9.3 % Eos % (Auto) 2.1 % Baso % (Auto) 0.5 % Neut # (Auto) 3.4 (1.8-7.7) 10^3/u L Lymph # (Auto) 1.6 (0.8-4.8) 10^3/u L [place] # (Auto) 0.5 (0.2-0.9) 10^3/u L Eos # (Auto) 0.1 (0.0-0.8) 10^3/u L Baso # (Auto) 0.0 (0.0-0.1) 10^3/u L Nucleated RBC % (a uto) 0 % Nucleated RBCs # 0.0 /100WBC Sodium 144 (136-145) mmol/L Potassium 3.2 L (3.5-5.1) mmol/L Chloride 101 (98-107) mmol/L Carbon Dioxide 30 H (22-29) mmol/L Anion Gap 16.2 (5-19) BUN 24 H (8-23) mg/dL Creatinine 1.6 H (0.5-0.9) mg/dL Glucose 108 (65-115) mg/dL Calculated Osmolal ity 295 (285-295) mOsm/k g Calcium 10.5 (8.5-10.5) mg/dL Total Bilirubin 3.7 H (0.15-1.2) mg/dL AST 47 H (0-32) U/L ALT 27 (0-33) U/L Alkaline Phosphata se 156 H (35-105) IU/L Creatine Kinase (26-192) U/L Troponin T Baselin e 11 H (0-10) ng/mL Troponin T 120 Min [place] (0-10) ng/mL Delta Troponin T (0-10) ABS# NT-Pro-B Natriuret Pep 761 H (0-450) pg/mL Total Protein 6.9 (6.6-8.7) g/dL Albumin 3.1 L (3.5-5.2) g/dL Globulin 3.8 (1.3-4.6) g/dL Vitamin B12 (232-1245) pg/mL Urine Color (Yellow) Urine Appearance (CLEAR) Urine pH (5-7) Ur Specific Gravit y (1.005-1.030) Urine Protein (Negative) Urine Glucose (UA) (Normal) Urine Ketones (Negative) Urine Blood (Negative) Urine Nitrate (Negative) Urine Bilirubin (NEGATIVE) Urine Urobilinogen (Negative) mg/dL Ur Leukocyte Shaniqua ase (Negative) 10/23/19 10/23/19 10/23/19 Range/Units 19:45 19:45 19:51 WBC (4.0-10.0) 10^3/ uL RBC (4.1-5.3) 10^6/u L Hgb (11.5-15.3) g/dL Hct (37.0-47.0) % MCV (81-99) fL MCH (28.0-34.0) pg MCHC (30.0-36.0) g/dL RDW (12.1-15.1) % Plt Count (130-400) 10^3/c mm MPV (7.4-10.4) fL Neut % (Auto) % Lymph % (Auto) % [place] % (Auto) % Eos % (Auto) % Baso % (Auto) % Neut # (Auto) (1.8-7.7) 10^3/u L Lymph # (Auto) (0.8-4.8) 10^3/u L [place] # (Auto) (0.2-0.9) 10^3/u L Eos # (Auto) (0.0-0.8) 10^3/u L Baso # (Auto) (0.0-0.1) 10^3/u L Nucleated RBC % (a uto) % Nucleated RBCs # /100WBC Sodium (136-145) mmol/L Potassium (3.5-5.1) mmol/L Chloride (98-107) mmol/L Carbon Dioxide (22-29) mmol/L Anion Gap (5-19) BUN (8-23) mg/dL Creatinine (0.5-0.9) mg/dL Glucose (65-115) mg/dL Calculated Osmolal ity (285-295) mOsm/k g Calcium (8.5-10.5) mg/dL Total Bilirubin (0.15-1.2) mg/dL AST (0-32) U/L ALT (0-33) U/L Alkaline Phosphata se (35-105) IU/L Creatine Kinase (26-192) U/L Troponin T Baselin e (0-10) ng/mL Troponin T 120 Min [place] 11.11 H (0-10) ng/mL Delta Troponin T 0.11 (0-10) ABS# NT-Pro-B Natriuret Pep (0-450) pg/mL Total Protein (6.6-8.7) g/dL Albumin (3.5-5.2) g/dL Globulin (1.3-4.6) g/dL Vitamin B12 1357 H (232-1245) pg/mL Urine Color Yellow (Yellow) Urine Appearance Clear (CLEAR) Urine pH 7 (5-7) Ur Specific Gravit y 1.010 (1.005-1.030) Urine Protein Neg (Negative) Urine Glucose (UA) Norm (Normal) Urine Ketones Negative (Negative) Urine Blood Neg (Negative) Urine Nitrate Negative (Negative) Urine Bilirubin Neg (NEGATIVE) Urine Urobilinogen Norm (Negative) mg/dL Ur Leukocyte Shaniqua ase Negative (Negative) 10/24/19 10/24/19 10/24/19 Range/Units 04:40 04:40 12:55 WBC 4.9 (4.0-10.0) 10^3/ uL RBC 2.83 L (4.1-5.3) 10^6/u L Hgb 9.7 L (11.5-15.3) g/dL Hct 29.2 L (37.0-47.0) % MCV 103.2 H (81-99) fL MCH 34.3 H (28.0-34.0) pg MCHC 33.2 (30.0-36.0) g/dL RDW 15.9 H (12.1-15.1) % Plt Count 69 L (130-400) 10^3/c mm MPV 11.2 H (7.4-10.4) fL Neut % (Auto) 57.0 % Lymph % (Auto) 29.6 % [place] % (Auto) 10.3 % Eos % (Auto) 2.3 % Baso % (Auto) 0.6 % Neut # (Auto) 2.8 (1.8-7.7) 10^3/u L Lymph # (Auto) 1.4 (0.8-4.8) 10^3/u L [place] # (Auto) 0.5 (0.2-0.9) 10^3/u L Eos # (Auto) 0.1 (0.0-0.8) 10^3/u L Baso # (Auto) 0.0 (0.0-0.1) 10^3/u L Nucleated RBC % (a uto) 0 % Nucleated RBCs # 0.0 /100WBC Sodium 143 (136-145) mmol/L Potassium 3.7 (3.5-5.1) mmol/L Chloride 101 (98-107) mmol/L Carbon Dioxide 31 H (22-29) mmol/L Anion Gap 14.7 (5-19) BUN 26 H (8-23) mg/dL Creatinine 1.5 H (0.5-0.9) mg/dL Glucose 98 (65-115) mg/dL Calculated Osmolal ity 293 (285-295) mOsm/k g Calcium 10.1 (8.5-10.5) mg/dL Total Bilirubin 3.6 H (0.15-1.2) mg/dL AST 44 H (0-32) U/L ALT 24 (0-33) U/L Alkaline Phosphata se 131 H (35-105) IU/L Creatine Kinase 96 (26-192) U/L Troponin T Baselin e (0-10) ng/mL Troponin T 120 Min [place] (0-10) ng/mL Delta Troponin T (0-10) ABS# NT-Pro-B Natriuret Pep (0-450) pg/mL Total Protein 6.3 L (6.6-8.7) g/dL Albumin 2.8 L (3.5-5.2) g/dL Globulin 3.5 (1.3-4.6) g/dL Vitamin B12 (232-1245) pg/mL Urine Color (Yellow) Urine Appearance (CLEAR) Urine pH (5-7) Ur Specific Gravit y (1.005-1.030) Urine Protein (Negative) Urine Glucose (UA) (Normal) Urine Ketones (Negative) Urine Blood (Negative) Urine Nitrate (Negative) Urine Bilirubin (NEGATIVE) Urine Urobilinogen (Negative) mg/dL Ur Leukocyte Shaniqua ase (Negative) Discharge Plan Discharge Patient Disposition: Admitted As Inpatient Admit Provider: Brock Almanzar Referrals: Delvis Ortiz DO [Primary Care Provider] - Discharge Date/Time: 10/23/19 21:37 Coding Level of Care Code ED Kiln Stacker for Chg Fwd Exam Comprehensive
[2019-10-23 17:49] VITALS: O2SAT 96
--- NOTE | 2019-10-23 17:59 | CTR_ITS ---
PROCEDURE INFORMATION: Exam: CT Head Without Contrast Exam date and time: 10/23/2019 6:12 PM Age: 84 years old Clinical indication: Injury or trauma; Fall; Initial encounter; Blunt trauma (contusions or hematomas); Without loss of consciousness; Patient HX: PT fell a week ago now C/O confusion and weakness; Additional info: Fall, closed head injury TECHNIQUE: Imaging protocol: Computed tomography of the head without contrast. Total DLP: 908.25 mGy-cm Radiation optimization: All CT scans at this facility use at least one of these dose optimization techniques: automated exposure control; mA and/or kV adjustment per patient size (includes targeted exams where dose is matched to clinical indication); or iterative reconstruction. COMPARISON: No relevant prior studies available. FINDINGS: Brain: Mild atrophy and mild white matter chronic microvascular changes are noted. No hemorrhage or CT evidence of acute infarction is seen. Ventricles: Normal. No ventriculomegaly. Bones/joints: Unremarkable. No acute fracture. Sinuses: Visualized sinuses are unremarkable. No fluid levels. Mastoid air cells: Visualized mastoid air cells are well aerated. Soft tissues: Unremarkable. CT/CT head wo con* [id number] IMPRESSION: No acute intracranial abnormality. Radiation Dose CTDIVOL = (mGy): DLP = 908.25 (mGy-cm)
--- NOTE | 2019-10-23 18:16 | XRR_ITS ---
PROCEDURE INFORMATION: Exam: XR Right Ribs with PA Chest, 3 Views Exam date and time: 10/23/2019 7:27 PM Age: 84 years old Clinical indication: Pain and injury or trauma; Fall; Initial encounter; Other: RT rib pain; Additional info: Pain, fall TECHNIQUE: Imaging protocol: XR Right ribs 3 views with PA chest. COMPARISON: No relevant prior studies available. FINDINGS: Lungs: Calcified granulomas are seen in both lungs. No acute airspace process is visualized. Pleural space: Unremarkable. No pleural effusion. No pneumothorax. Heart/Mediastinum: Unremarkable. No cardiomegaly. Bones/joints: Degenerative changes are observed in both shoulders and the visualized spine. Mild levoscoliosis of the lumbar spine is noted. Slightly offset fracture of the right 7th rib is seen anteriorly near the costochondral joint. XR/XR ribs RT mn 3V w CXR1V [id number] IMPRESSION: Right 7th rib fracture. No pneumothorax.
[2019-10-23 18:25] LABS: Basophils % 0.5 %; Eosinophils # 0.1 10^3/uL (0.0-0.8); Eosinophils % 2.1 %; Hematocrit 31.8 % (37.0-47.0); Hemoglobin 10.5 g/dL (11.5-15.3); Lymphocytes # 1.6 10^3/uL (0.8-4.8); Lymphocytes % 28.5 %; Mean Corpuscular Hemoglobin 34.2 pg (28.0-34.0); Mean Corpuscular Volume 103.6 fL (81-99); Mean Platelet Volume 11.4 fL (7.4-10.4); Monocytes # 0.5 10^3/uL (0.2-0.9); Monocytes % 9.3 %; Neutrophils # 3.4 10^3/uL (1.8-7.7); Neutrophils % 59.4 %; Nucleated Red Blood Cells % 0 %; Platelet Count 79 10^3/cmm (130-400); Red Blood Count 3.07 10^6/uL (4.1-5.3); Red Cell Distribution Width 15.9 % (12.1-15.1); White Blood Count 5.7 10^3/uL (4.0-10.0)
[2019-10-23 18:52] LABS: Alanine Aminotransferase 27 U/L (0-33); Albumin Level 3.1 g/dL (3.5-5.2); Alkaline Phosphatase 156 IU/L (35-105); Anion Gap 16.2 (5-19); Aspartate Amino Transferase 47 U/L (0-32); Blood Urea Nitrogen 24 mg/dL (8-23); Calcium 10.5 mg/dL (8.5-10.5); Carbon Dioxide 30 mmol/L (22-29); Chloride 101 mmol/L (98-107); Creatinine Clr Calc Pharmacy 35.5564; Globulin 3.8 g/dL (1.3-4.6); Glucose 108 mg/dL (65-115); NT Pro B Type Natriuretic Pept 761 pg/mL (0-450); Osmolality Calculated 295 mOsm/kg (285-295); Potassium 3.2 mmol/L (3.5-5.1); Sodium 144 mmol/L (136-145); Total Bilirubin 3.7 mg/dL (0.15-1.2); Total Protein 6.9 g/dL (6.6-8.7)
[2019-10-23 19:16] LABS: Troponin(5th) Baseline 11 ng/mL (0-10)
--- NOTE | 2019-10-23 19:58 | ECG_ITS ---
Measurements Intervals [place] Rate: 64 P: 85 TX: 234 QRS: 17 QRSD: 97 T: 53 QT: 419 QTc: 432 SINUS RHYTHM WITH FIRST DEGREE AV BLOCK LOW QRS VOLTAGE IN PRECORDIAL LEADS [QRS DEFLECTION < 1.0 mV IN CHEST LEADS] POSSIBLE ANTERIOR MYOCARDIAL INFARCTION , PROBABLY OLD [30 ms Q WAVE IN V3/V4, OR R < 0.2 mV IN V4] Compared to ECG 10/23/2019 18:41:53 Myocardial infarct finding now present Electronically Signed On 10-24-2019 13:43:49 CDT by Ulices Jiang M.D. [email or web address]
[2019-10-23 19:59] LABS: Add Urine Microscopic? NO
[2019-10-23 20:04] LABS: Troponin 5 2HR 11.11 ng/mL (0-10); Troponin 5 2HR Delta 0.11 ABS# (0-10)
[2019-10-23 20:10] LABS: Bilirubin Urine Neg (NEGATIVE); Blood Urine Neg (Negative); Glucose Urine UA Norm (Normal); Ketones Urine Negative (Negative); Leukocyte Esterase Urine Negative (Negative); Nitrate Urine Negative (Negative); Protein Urine Neg (Negative); Urine Appearance Clear (CLEAR); Urine Color Yellow (Yellow); Urobilinogen Urine Norm (Negative); pH Urine 7 (5-7)
--- NOTE | 2019-10-23 20:32 | P.HP_ITS ---
Providers/Chief Complaint Primary Care Provider: Delvis Ortiz DO Chief Complaint: NOT FEELING WELL History of Present Illness Sheila Magaña is a 84 year old female who has a history of liver cirrhosis of unknown etiology, anasarca, diastolic congestive heart failure, noncompliant with CPAP, sleep apnea, was brought in by her niece because of recurrent falls and confusion. Patient is stating that she lives alone, she struggles to manage her daily affairs because of her extreme leg swelling and generalized anasarca, metolazone has been added to her Lasix 160 mg dosage, she has been struggling to ambulate in her house, her legs has been blisters with discharge. She has been having recurrent falls at home which he is attributing to mechanical falls, however she has been on vitamin B12 injections, was seen by Dr. Aguila for an emia and thrombocytopenia, folate level normal, iron level normal, with some consideration for bone marrow biopsy for refractory anemia and thrombocytopenia. She has seen Dr. Dukes who recommended cardiac stress test and did echo which revealed diastolic heart failure with EF 60%. Agnostic's in ER revealed normal hemodynamics, with normal blood work other than hypokalemia, CT head negative, no signs of UTI, she is denying orthopnea or PND She is endorsing to constipation and then diarrhea afterwards, she took 2 capsules of Imodium to control her diarrhea but mostly she stays constipated, s he is denying fever, nausea, vomiting, signs of UTI. Review of Systems Const: Reports: body aches, change in appetite, fatigue and malaise; Denies: fever or chills Eyes: Denies: change in vision ENMT: Denies: throat pain Card: Reports: swelling of feet/ankles and shortness of breath when lying down; Denies: chest pain or palpitations Resp: Denies: shortness of breath, productive cough or non-productive cough GI: Reports: diarrhea and constipation; Denies: abdominal pain, nausea or vomiting : Denies: flank pain, difficulty urinating, urinary frequency or urinary dribbling Musc: Reports: joint pain, joint swelling, joint stiffness, limited range of motion and muscle cramps; Denies: neck pain Skin/Breast: Reports: rash, redness, skin swelling, new lesion and changing lesion; Denies: sensitivity to light or skin tenderness Neuro: Denies: headache or numbness in extremities Psych: Denies: anxiety, depression or sleeping more Endo: Denies: excessive urination or excessive thirst Davis/Lymph: Denies: easy bruising or easy bleeding All/Imm: Denies: hives Medications/Allergies Home Medications Medication Instructions Recorded Confirmed Last Taken Type cyanocobalamin (vitamin B-12) See Rx Instructions .ROUTE .COMPLEX 10/23/19 10/23/19 Unknown History duloxetine 30 mg PO DAILY 10/23/19 10/23/19 10/22/19 History meloxicam 7.5 mg PO BID 10/23/19 10/23/19 10/22/19 History Allergies Allergy/AdvReac Type Severity Reaction Status Date / Time No Known Allergies Allergy Verified 10/23/19 17:39 PFSH Acute PFSH: Medical History Acute on chronic diastolic (congestive) heart failure The EKG revealed sinus rhythm with poor R wave progression. No acute ST-T changes Ascites Cirrhosis of liver with ascites Diabetes Fibromyalgia GERD (gastroesophageal reflux disease) Heart murmur, systolic Hyperlipidemia Hypertension Localized swelling of both lower legs Narcolepsy Osteoarthritis Sleep apnea Vitamin B12 deficiency Vitamin D deficiency Surgical History History of appendectomy History of cataract surgery Hx of cholecystectomy Family History Father Cancer Denies family history of Clotting disorder Chronic kidney disease (CKD) Social History Smoking and tobacco status: former smoker Quit status (tobacco): has quit using tobacco Former quit date comment: She quit smoking when she was young Alcohol intake: never Marital status: History of recent travel: No Current gender identity: Female Vitals/I&O/Wt Last Vital Signs Temp 98.5 F 10/23/19 17:37 Pulse 65 10/23/19 17:37 Resp 20 H 10/23/19 17:37 BP 127/72 10/23/19 17:37 Pulse Ox 96 10/23/19 17:49 Weight last 48 hrs Weight 136.531 kg Physical Exam Narrative: EXAM NARRATIVE: This is a morbidly obese female lying comfortably in her bed No active respiratory distress She has generalized body anasarca Heart rate S1-S2 no murmur appreciated however distant heart sounds Her breathing is comfortable without any respiratory distress Abdomen distended, obesity, anasarca positive, nontender, Multiple blisters on her legs which are weeping, whitish to yellow drainage, no signs of cellulitis, Lymphedema positive Awake alert oriented x3, No asterixis Not able to elicit reflexes, Data : 10/23/19 18:04 10/23/19 18:04 A&P Assessment and plan (1) Generalized weakness: Status: Acute Code(s): R53.1 - Weakness (2) Anemia: Status: Acute Code(s): D64.9 - Anemia, unspecified (3) Thrombocytopenia: Status: Acute Code(s): D69.6 - Thrombocytopenia, unspecified (4) Recurrent falls: Status: Acute Code(s): R29.6 - Repeated falls (5) Cirrhosis of liver with ascites: Status: Acute Qualifiers: Hepatic cirrhosis type: unspecified hepatic cirrhosis Qualified Code(s): K74.60 - Unspecified cirrhosis of liver; R18.8 - Other ascites Code(s): K74.60 - Unspecified cirrhosis of liver; R18.8 - Other ascites (6) Localized swelling of both lower legs: Status: Acute Code(s): R22.43 - Localized swelling, mass and lump, lower limb, bilateral Additional A&P Information Generalized body anasarca Secondary to liver cirrhosis, cause of liver cirrhosis is unknown, hepatitis panel negative, she is nonalcoholic, non-smoker, this could be secondary to nonalcoholic steatohepatitis She is seeing Dr. Powers He increased diuretic regimen, he added metolazone to 80 mg of Lasix twice a day Recurrent falls: I have not assessed her gait in the ER however my suspicion is high for neuropathy, she has been getting vitamin B12, will check B12 level, normal folate and iron level Anemia and thrombocytopenia She has abnormal kappa lambda chains, inproportionate albumin to protein ratio, abnormal creatinine with borderline high calcium, she has been following up with Dr. Aguila Myalgia Patient is denying any fever, cold like symptoms, runny nose, runny eyes, no dysuria This is most likely secondary to her underlying chronic conditions, Hypokalemia to be repleted DVT prophylaxis: SCDs avoid anticoagulation because of thrombocytopenia It will be a challenge to put on SCDs because of her lymphedema Currently she has compression bandage on Cardiac diet Physical therapy in the morning Patient lives alone who is having recurrent falls and now has generalized weakness would benefit from a nursing SNF Attestations Medical Necessity Statement*: Anticipating stay in the hospital might be less than 48 hours, needs physical therapy evaluation, she will most likely benefit from SNF, length of stay dependent on her clinical course Time Spent in Patient Care: 40 Coding Level of Care Code Acute 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
[2019-10-23 21:15] VITALS: BP 155/57; PULSE 65; RESP 16; O2SAT 97
[2019-10-23 21:50] VITALS: BP 145/54; PULSE 67; RESP 18; TEMP 36.4; O2SAT 94
[2019-10-23 21:57] VITALS: BP 145/54; PULSE 65; RESP 18; TEMP 36.4; O2SAT 97
--- NOTE | 2019-10-23 22:27 | XRR_ITS ---
PROCEDURE INFORMATION: Exam: XR Abdomen, 1 View Exam date and time: 10/23/2019 10:28 PM Age: 84 years old Clinical indication: Constipation; Prior surgery; Surgery type: Appy, gb TECHNIQUE: Imaging protocol: XR of the abdomen. Views: Frontal supine view of the abdomen. 1 View. COMPARISON: No relevant prior studies available. FINDINGS: Gastrointestinal tract: Scattered gas and stool in normal caliber colon. Scattered gas within the small bowel measuring up to 2.5 cm. Intraperitoneal space: No pneumoperitoneum. Bones/joints: Leftward curvature and degenerative changes of the lumbar spine. Degenerative changes of the hip joints. XR/XR KUB [id number] IMPRESSION: Nonspecific nonobstructive bowel gas pattern.
[2019-10-23] MEDS: potassium chloride premix 40 MEQ/100 ML PREMIX 25 MEQ IV (22:37)
[2019-10-23 23:05] LABS: Vitamin B12 1357 pg/mL (232-1245)
--- NOTE | 2019-10-23 23:58 | ECG_ITS ---
Measurements Intervals [place] Rate: 63 P: 72 MS: 230 QRS: 16 QRSD: 95 T: 62 QT: 426 QTc: 437 SINUS RHYTHM WITH FIRST DEGREE AV BLOCK WITH OCCASIONAL SUPRAVENTRICULAR PREMATURE COMPLEXES LOW QRS VOLTAGE IN PRECORDIAL LEADS [QRS DEFLECTION < 1.0 mV IN CHEST LEADS] No previous ECG available for comparison Electronically Signed On 10-23-2019 18:48:09 CDT by Elin Hoyt M.D. [id number]
[2019-10-24] VITALS (7 sets, daily range): BP systolic 124–155; BP diastolic 66–69; PULSE 64–71; RESP 18; TEMP 36.4–36.7; O2SAT 90–96
[2019-10-24] MEDS: sodium chloride 0.9% 100 ML 30 ML (00:02)
[2019-10-24] MEDS: cefTRIAXone 1,000 MG in sodium chloride 0.9% (plus) 50 ML 100 MG IV ×2 (00:45→22:51)
[2019-10-24 04:59] LABS: Basophils % 0.6 %; Eosinophils # 0.1 10^3/uL (0.0-0.8); Eosinophils % 2.3 %; Hematocrit 29.2 % (37.0-47.0); Hemoglobin 9.7 g/dL (11.5-15.3); Lymphocytes # 1.4 10^3/uL (0.8-4.8); Lymphocytes % 29.6 %; Mean Corpuscular HGB Conc 33.2 g/dL (30.0-36.0); Mean Corpuscular Hemoglobin 34.3 pg (28.0-34.0); Mean Corpuscular Volume 103.2 fL (81-99); Mean Platelet Volume 11.2 fL (7.4-10.4); Monocytes # 0.5 10^3/uL (0.2-0.9); Monocytes % 10.3 %; Neutrophils # 2.8 10^3/uL (1.8-7.7); Nucleated Red Blood Cells % 0 %; Platelet Count 69 10^3/cmm (130-400); Red Blood Count 2.83 10^6/uL (4.1-5.3); Red Cell Distribution Width 15.9 % (12.1-15.1); White Blood Count 4.9 10^3/uL (4.0-10.0)
[2019-10-24 05:21] LABS: Alanine Aminotransferase 24 U/L (0-33); Albumin Level 2.8 g/dL (3.5-5.2); Alkaline Phosphatase 131 IU/L (35-105); Anion Gap 14.7 (5-19); Aspartate Amino Transferase 44 U/L (0-32); Blood Urea Nitrogen 26 mg/dL (8-23); Calcium 10.1 mg/dL (8.5-10.5); Carbon Dioxide 31 mmol/L (22-29); Chloride 101 mmol/L (98-107); Globulin 3.5 g/dL (1.3-4.6); Glucose 98 mg/dL (65-115); Osmolality Calculated 293 mOsm/kg (285-295); Potassium 3.7 mmol/L (3.5-5.1); Sodium 143 mmol/L (136-145); Total Bilirubin 3.6 mg/dL (0.15-1.2); Total Protein 6.3 g/dL (6.6-8.7)
[2019-10-24] MEDS: duloxetine 30 mg Capsule PO (10:00)
[2019-10-24] MEDS: FUROsemide 40 mg Tablet 80 MG PO ×2 (10:00→17:42)
[2019-10-24] MEDS: meclizine 25 mg tablet PO (10:00)
[2019-10-24] MEDS: ondansetron 2 mg/ML SDV 2 mL 4 MG IVP (11:13)
[2019-10-24 13:33] LABS: Creatine Phosphokinase 96 U/L (26-192)
--- NOTE | 2019-10-24 14:05 | PC.CHAP ---
Pastoral Care Encounter/Spiritual Assessment Type of Contact [] Declined head baker visit [] Patient/Family/Request visit [] Outpatient visit [] Follow-up visit [] Physician referral [] Code/Alert [X] Routine visit [] Staff referral [] Actively dying [] Patient sleeping [] Family support [] [] Out of room [] Palliative care [] [] Receiving care in room [] Pre-surgical visit [] Trauma [] Long length of stay [] ICU visit [] Other: Relational/Emotional Strength [] Patient feels connected with others/family/visitors/staff [] Distress [] Loneliness/isolation [] Abandonment Spirituality of Patient [] Person of Argenis [] Attends Yazidi of their Argenis [] Believes in Prayer [] Reads Bible or Lutheran materials [] There are Spiritual issues to be addressed Demand Generation Manager Interventions [X] Prayer [] Active listening [] Non-anxious presence [] Spiritual/emotional support [] Crisis/trauma care [] Spiritual counseling [] Bereavement support [] Provided bereavement packet [] Provided Bible/devotional materials [] Provided toy/stuffed animal, coloring book to patient or family member [] Provided Communion [] Anointing/[place] [] Salvation [] Completed spiritual assessment [] Other: Impact on Illness or Injury [] Angry [] Fearful [] Anxious [] Often cries [] Exhaustion [] Unable to work [] Unable to attend latter-day [] Unable to walk/stand [] Unable to read [] Unable to drive [] Unable to eat/drink [] Unable to sleep [] Unable to be with family [] Patient intubated [] Other: Summary FROM LAMIN Time spent with patient
--- NOTE | 2019-10-24 17:08 | P.PN_ITS ---
Subjective Subjective: Interval history: Patient reports being generally weak but otherwise denies shortness of breath or chest pain. Reports chronic abdominal discomfort off and on which is unchanged. Vitals/I&O/Wt Last Vital Signs Temp 97.7 F 10/24/19 15:32 Pulse 69 10/24/19 15:32 Resp 18 10/24/19 15:32 BP 144/69 10/24/19 15:32 Pulse Ox 92 10/24/19 15:32 10/24/19 10/24/19 10/24/19 06:59 14:59 22:59 Intake Total 250 / 350 118 / 118 Output Total 460 / 1010 Balance -210 / -660 118 / 118 Weight last 48 hrs Weight 136.531 kg Physical Exam Const: COMMON NORMALS: no apparent distress and oriented x3 Resp: COMMON NORMALS: normal respiratory effort and clear to auscultation bilaterally AUSCULTATION: clear to auscultation bilaterally Cardio: COMMON NORMALS: regular rate, regular rhythm and S2 normal heart sound RATE: regular rate RHYTHM: regular rhythm HEART SOUNDS: S2 normal OTHER: Lower extremity edema with weeping fluids. Lower extremities are dressed with compressing wraps. GI: COMMON NORMALS: normal to inspection, nondistended, normoactive bowel sounds, soft to palpation and non-tender PALPATION: Yes soft Neuro: COMMON NORMALS: oriented x3 and no focal motor deficits Data : 10/24/19 04:40 10/24/19 04:40 A&P Assessment and plan (1) Generalized weakness: Status: Acute Code(s): R53.1 - Weakness (2) Anemia: Status: Acute Code(s): D64.9 - Anemia, unspecified (3) Thrombocytopenia: Status: Acute Code(s): D69.6 - Thrombocytopenia, unspecified (4) Recurrent falls: Status: Acute Code(s): R29.6 - Repeated falls (5) Cirrhosis of liver with ascites: Status: Acute Qualifiers: Hepatic cirrhosis type: unspecified hepatic cirrhosis Qualified Code(s): K74.60 - Unspecified cirrhosis of liver; R18.8 - Other ascites Code(s): K74.60 - Unspecified cirrhosis of liver; R18.8 - Other ascites (6) Localized swelling of both lower legs: Status: Acute Code(s): R22.43 - Localized swelling, mass and lump, lower limb, bilateral Additional A&P Information Generalized body anasarca Secondary to liver cirrhosis, cause of liver cirrhosis is unknown, hepatitis panel negative, she is nonalcoholic, non-smoker, this could be secondary to nonalcoholic steatohepatitis She is seeing Dr. Powers He increased diuretic regimen, he added metolazone to 80 mg of Lasix twice a day Recurrent falls: I have not assessed her gait in the ER however my suspicion is high for ne uropathy, she has been getting vitamin B12, will check B12 level, normal folate and iron level Anemia and thrombocytopenia She has abnormal kappa lambda chains, inproportionate albumin to protein ratio, abnormal creatinine with borderline high calcium, she has been following up with Dr. Aguila Myalgia Patient is denying any fever, cold like symptoms, runny nose, runny eyes, no dysuria This is most likely secondary to her underlying chronic conditions, Hypokalemia to be repleted DVT prophylaxis: SCDs avoid anticoagulation because of thrombocytopenia It will be a challenge to put on SCDs because of her lymphedema Currently she has compression bandage on Cardiac diet Physical therapy in the morning Patient lives alone who is having recurrent falls and now has generalized weakness would benefit from a nursing SNF Continue current treatment with Ceftriaxone and add Flagyl as SBP can not be ruled out. Pockets of fluids are not enough for safe paracentesis. Continue PT and monitoring. Attestations Medical Necessity Statement*: Patient with generalized weakness and concern for peritonitis requires close inpatient monitoring and treatment. 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
[2019-10-24] MEDS: metroNIDAZOLE IV 500 MG/100 ML PREMIX 100 MG IV (17:42)
[2019-10-25] VITALS: BP 143/68; PULSE 64; RESP 18; TEMP 36.6; O2SAT 90
[2019-10-25] MEDS: metroNIDAZOLE IV 500 MG/100 ML PREMIX 100 MG IV ×3 (01:58→17:49)
[2019-10-25 04:00] VITALS: BP 145/69; PULSE 62; RESP 18; TEMP 36.4; O2SAT 97
[2019-10-25 07:23] VITALS: BP 131/66; PULSE 65; RESP 18; TEMP 36.4; O2SAT 90
[2019-10-25] MEDS: duloxetine 30 mg Capsule PO (08:39)
[2019-10-25] MEDS: lactulose oral liq 20 gm/30 mL UDC 10 GM PO ×2 (08:40→17:50)
[2019-10-25] MEDS: meclizine 25 mg tablet PO ×2 (08:40→17:50)
[2019-10-25] MEDS: polyethylene glycol 3350 Pkt 17 gm PO (08:40)
[2019-10-25] MEDS: FUROsemide 40 mg Tablet 80 MG PO ×2 (08:40→17:49)
[2019-10-25 09:39] LABS: Basophils % 0.4 %; Eosinophils # 0.2 10^3/uL (0.0-0.8); Eosinophils % 2.2 %; Hemoglobin 9.7 g/dL (11.5-15.3); Lymphocytes # 1.6 10^3/uL (0.8-4.8); Lymphocytes % 22.6 %; Mean Corpuscular HGB Conc 32.3 g/dL (30.0-36.0); Mean Corpuscular Volume 105.3 fL (81-99); Mean Platelet Volume 11.2 fL (7.4-10.4); Monocytes # 0.7 10^3/uL (0.2-0.9); Monocytes % 10.7 %; Neutrophils # 4.4 10^3/uL (1.8-7.7); Neutrophils % 63.4 %; Nucleated Red Blood Cells % 0 %; Platelet Count 79 10^3/cmm (130-400); Red Blood Count 2.85 10^6/uL (4.1-5.3); Red Cell Distribution Width 15.9 % (12.1-15.1); White Blood Count 6.9 10^3/uL (4.0-10.0)
[2019-10-25 09:50] LABS: Alanine Aminotransferase 24 U/L (0-33); Albumin Level 2.9 g/dL (3.5-5.2); Alkaline Phosphatase 128 IU/L (35-105); Anion Gap 14.3 (5-19); Aspartate Amino Transferase 43 U/L (0-32); Blood Urea Nitrogen 27 mg/dL (8-23); Calcium 9.9 mg/dL (8.5-10.5); Carbon Dioxide 30 mmol/L (22-29); Chloride 99 mmol/L (98-107); Globulin 3.7 g/dL (1.3-4.6); Glucose 152 mg/dL (65-115); Osmolality Calculated 290 mOsm/kg (285-295); Potassium 3.3 mmol/L (3.5-5.1); Sodium 140 mmol/L (136-145); Total Bilirubin 3.5 mg/dL (0.15-1.2); Total Protein 6.6 g/dL (6.6-8.7)
--- NOTE | 2019-10-25 10:50 | PC.CHAP ---
Pastoral Care Encounter/Spiritual Assessment Type of Contact [] Declined special educator visit [] Patient/Family/Request visit [] Outpatient visit [x] Follow-up visit [] Physician referral [] Code/Alert [] Routine visit [] Staff referral [] Actively dying [] Patient sleeping [] Family support [] [] Out of room [] Palliative care [] [] Receiving care in room [] Pre-surgical visit [] Trauma [] Long length of stay [] ICU visit [] Other: Relational/Emotional Strength [x] Patient feels connected with others/family/visitors/staff [] Distress [] Loneliness/isolation [] Abandonment Spirituality of Patient [x] Person of Argenis [] Attends Faith of their Argenis [x] Believes in Prayer [] Reads Bible or Jain materials [] There are Spiritual issues to be addressed Stone Crusher Operator Interventions [x Prayer [x] Active listening [x] Non-anxious presence [x] Spiritual/emotional support [] Crisis/trauma care [] Spiritual counseling [] Bereavement support [] Provided bereavement packet [] Provided Bible/devotional materials [] Provided toy/stuffed animal, coloring book to patient or family member [] Provided Communion [] Anointing/[place] [] Salvation [x] Completed spiritual assessment [] Other: Impact on Illness or Injury [] Angry [] Fearful [] Anxious [] Often cries [] Exhaustion [] Unable to work [] Unable to attend zoroastrian [] Unable to walk/stand [] Unable to read [] Unable to drive [] Unable to eat/drink [] Unable to sleep [] Unable to be with family [] Patient intubated [] Other: Summary Chaplains prayed with Patient. Time spent with patient 7 minutes.
[2019-10-25 11:07] VITALS: BP 147/66; PULSE 62; RESP 16; TEMP 36.5; O2SAT 92
--- NOTE | 2019-10-25 11:17 | P.PN_ITS ---
Subjective Subjective: Interval history: Patient reports overall not doing well and being weak. Denies chest pain or abdominal pain. Reports that breathing is comfortable and denies having cough. Reports that her lower extremity swelling and weeping is improving. Patient reports that she always has alternating constipation with diarrhea and not always taking lactulose daily. Had no bowel movement in the last couple days Vitals/I&O/Wt Last Vital Signs Temp 97.7 F 10/25/19 11:07 Pulse 62 10/25/19 11:07 Resp 16 10/25/19 11:07 BP 147/66 10/25/19 11:07 Pulse Ox 92 10/25/19 11:07 10/24/19 10/25/19 10/25/19 22:59 06:59 14:59 Intake Total 422 / 540 520 / 1060 360 / 360 Output Total 200 / 200 550 / 750 210 / 210 Balance 222 / 340 -30 / 310 150 / 150 Weight last 48 hrs Weight 136.531 kg Physical Exam Const: COMMON NORMALS: no apparent distress and oriented x3 Resp: COMMON NORMALS: normal respiratory effort and clear to auscultation bilaterally AUSCULTATION: clear to auscultation bilaterally Cardio: COMMON NORMALS: regular rate, regular rhythm and S2 normal heart sound RATE: regular rate RHYTHM: regular rhythm HEART SOUNDS: S2 normal OTHER: Lower extremity edema is improving. Lower extremities are dressed with compressing wraps. GI: COMMON NORMALS: normal to inspection, nondistended, normoactive bowel sounds, soft to palpation and non-tender PALPATION: Yes soft Neuro: COMMON NORMALS: oriented x3 and no focal motor deficits Data : 10/25/19 09:10 10/25/19 09:10 A&P Assessment and plan (1) Generalized weakness: Status: Acute Code(s): R53.1 - Weakness (2) Anemia: Status: Acute Code(s): D64.9 - Anemia, unspecified (3) Thrombocytopenia: Status: Acute Code(s): D69.6 - Thrombocytopenia, unspecified (4) Recurrent falls: Status: Acute Code(s): R29.6 - Repeated falls (5) Cirrhosis of liver with ascites: Status: Acute Qualifiers: Hepatic cirrhosis type: unspecified hepatic cirrhosis Qualified Code(s): K74.60 - Unspecified cirrhosis of liver; R18.8 - Other ascites Code(s): K74.60 - Unspecified cirrhosis of liver; R18.8 - Other ascites (6) Localized swelling of both lower legs: Status: Acute Code(s): R22.43 - Localized swelling, mass and lump, lower limb, bilateral Additional A&P Information Generalized body anasarca Secondary to liver cirrhosis, cause of liver cirrhosis is unknown, hepatitis panel negative, she is nonalcoholic, non-smoker, this could be secondary to nonalcoholic steatohepatitis She is seeing Dr. Powers He increased diuretic regimen, he added metolazone to 80 mg of Lasix twice a day Recurrent falls: I have not assessed her gait in the ER however my suspicion is high for neuropathy, she has been getting vitamin B12, will check B12 level, normal folate and iron level Anemia and thrombocytopenia She has abnormal kappa lambda chains, inproportionate albumin to protein ratio, abnormal creatinine with borderline high calcium, she has been following up with Dr. Aguila Myalgia Patient is denying any fever, cold like symptoms, runny nose, runny eyes, no dysuria This is most likely secondary to her underlying chronic conditions, Hypokalemia to be repleted DVT prophylaxis: SCDs avoid anticoagulation because of thrombocytopenia It will be a challenge to put on SCDs because of her lymphedema Currently she has compression bandage on Cardiac diet Physical therapy in the morning Patient lives alone who is having recurrent falls and now has generalized weakness would benefit from a nursing SNF Continue current treatment with Ceftriaxone and add Flagyl for now. I think it is reasonable to dismiss patient on Omnicef and Flagyl orally for several more days when ready to be dismissed. Currently patient is very weak and she lives alone and it is not safe for her to go home. Continue Lasix and replete potassium. Continue PT and monitoring. Attestations Medical Necessity Statement*: Patient with significant anasarca and suspected spontaneous bacterial peritonitis as well as significant generalized weakness requires close inpatient monitoring and treatment until deemed safe for discharge. Coding Level of Care Code Acute Ways Operator 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
[2019-10-25 15:36] VITALS: BP 147/75; PULSE 62; RESP 18; TEMP 36.4; O2SAT 91
[2019-10-25 20:00] VITALS: BP 148/72; PULSE 69; RESP 24; TEMP 36.5; O2SAT 88
[2019-10-25] MEDS: cefTRIAXone 1,000 MG in sodium chloride 0.9% (plus) 50 ML 100 MG IV (22:45)
[2019-10-26] VITALS: BP 112/65; PULSE 65; RESP 20; TEMP 36.7; O2SAT 87
[2019-10-26] MEDS: metroNIDAZOLE IV 500 MG/100 ML PREMIX 100 MG IV ×3 (02:06→21:46)
[2019-10-26 04:00] VITALS: BP 145/72; PULSE 67; RESP 24; TEMP 36.9; O2SAT 90
[2019-10-26 06:31] LABS: Basophils % 0.5 %; Eosinophils # 0.1 10^3/uL (0.0-0.8); Eosinophils % 2.5 %; Hematocrit 29.7 % (37.0-47.0); Hemoglobin 9.5 g/dL (11.5-15.3); Lymphocytes # 1.4 10^3/uL (0.8-4.8); Lymphocytes % 25.1 %; Mean Corpuscular Hemoglobin 34.1 pg (28.0-34.0); Mean Corpuscular Volume 106.5 fL (81-99); Mean Platelet Volume 11.6 fL (7.4-10.4); Monocytes # 0.6 10^3/uL (0.2-0.9); Monocytes % 11.1 %; Neutrophils # 3.4 10^3/uL (1.8-7.7); Neutrophils % 60.1 %; Nucleated Red Blood Cells % 0 %; Platelet Count 70 10^3/cmm (130-400); Red Blood Count 2.79 10^6/uL (4.1-5.3); Red Cell Distribution Width 15.9 % (12.1-15.1); White Blood Count 5.7 10^3/uL (4.0-10.0)
[2019-10-26 07:01] LABS: Alanine Aminotransferase 23 U/L (0-33); Albumin Level 2.8 g/dL (3.5-5.2); Alkaline Phosphatase 148 IU/L (35-105); Anion Gap 9.5 (5-19); Aspartate Amino Transferase 42 U/L (0-32); Blood Urea Nitrogen 25 mg/dL (8-23); Calcium 9.8 mg/dL (8.5-10.5); Carbon Dioxide 35 mmol/L (22-29); Chloride 101 mmol/L (98-107); Glucose 113 mg/dL (65-115); Osmolality Calculated 292 mOsm/kg (285-295); Potassium 3.5 mmol/L (3.5-5.1); Sodium 142 mmol/L (136-145); Total Bilirubin 2.7 mg/dL (0.15-1.2); Total Protein 6.8 g/dL (6.6-8.7)
[2019-10-26 07:49] VITALS: BP 127/64; PULSE 73; RESP 16; TEMP 36.4; O2SAT 90
[2019-10-26] MEDS: FUROsemide 40 mg Tablet 80 MG PO ×2 (09:34→17:03)
[2019-10-26] MEDS: duloxetine 30 mg Capsule PO (09:34)
[2019-10-26] MEDS: lactulose oral liq 20 gm/30 mL UDC 10 GM PO (09:36)
[2019-10-26] MEDS: meclizine 25 mg tablet PO ×2 (09:38→17:03)
[2019-10-26] MEDS: polyethylene glycol 3350 Pkt 17 gm PO (09:39)
[2019-10-26 11:18] VITALS: BP 128/70; PULSE 67; RESP 16; TEMP 36.4; O2SAT 94
--- NOTE | 2019-10-26 14:09 | P.PN_ITS ---
Subjective Subjective: Interval history: Chart reviewed, no urine output overnight, last BM was yesterday. Pending decision on SNF. Patient seen and examined, resting in bed, no complaints currently, seems to have a mediocre appetite. Has decided on SNF and prefers [facility]. Medications: Reviewed: Yes Medication Review Details: Active Medications Generic Name Dose Route Start Last Admin Trade Name Freq PRN Reason Stop Dose Admin Furosemide 80 mg 10/24/19 09:00 10/26/19 09:34 Lasix PO 80 mg BID KYLE Administration Ceftriaxone Sodium 1,000 mg/ 50 mls @ 100 mls/ hr 10/23/19 23:00 10/25/19 23:15 Sodium Chloride IV Infused Q24H KYLE Infusion Protocol Metronidazole 500 mg in 100 mls @ 100 mls/hr 10/24/19 18:00 10/26/19 13:04 Flagyl Iv IV Infused Q8H KYLE Infusion Protocol Lactulose 10 gm 10/24/19 09:00 10/26/19 09:36 Constulose PO 10 gm BID KYLE Administration Meclizine HCl 25 mg 10/24/19 09:00 10/26/19 09:38 Antivert PO 25 mg BID KYLE Administration Ondansetron HCl 4 mg 10/23/19 21:57 10/24/19 11:13 Zofran IVP 4 mg Q6H PRN Administration NAUSEA AND VOMITI NG Polyethylene Glyco l 17 gm 10/24/19 09:00 10/26/19 09:39 Miralax PO 17 gm DAILY KYLE Administration Potassium Chloride 40 meq 10/26/19 09:00 10/26/19 09:39 Klor-Con 10 PO 40 meq DAILY KYLE Administration No Known Allergies Allergy (Verified 10/23/19 17:39) Vitals/I&O/Wt Last Vital Signs Temp 97.6 F 10/26/19 11:18 Pulse 67 10/26/19 11:18 Resp 16 10/26/19 11:18 BP 128/70 10/26/19 11:18 Pulse Ox 94 10/26/19 11:18 10/25/19 10/26/19 10/26/19 22:59 06:59 14:59 Intake Total 100 / 800 150 / 950 340 / 340 Output Total Balance 99 / 589 150 / 739 340 / 340 Physical Exam Const: COMMON NORMALS: no apparent distress and oriented x3 GENERAL APPEARANCE: cooperative and comfortable; not ill appearing NUTRITIONAL APPEARANCE: obese morbidly obese ORIENTATION/CONSCIOUSNESS: Yes awake HENMT: COMMON NORMALS: normocephalic, head/scalp atraumatic, hearing grossly normal bilaterally and moist oral mucous membranes HEAD & SCALP: no rmocephalic and atraumatic TEETH & GINGIVA: Yes dentures Eye: COMMON NORMALS: PERRL, EOMs intact bilaterally and conjunctivae normal CONJUNCTIVA: Yes conjunctivae normal PUPIL: Yes PERRL Neck/C-Spine: COMMON NORMALS: full ROM GENERAL: Yes normal visual inspection and Yes trachea midline Resp: COMMON NORMALS: normal respiratory effort, no retractions, no use of accessory muscles and clear to auscultation bilaterally EFFORT & INSPECTION: Yes able to speak in complete sentences, Yes symmetric chest movement and No tachypneic AUSCULTATION: clear to auscultation bilaterally Cardio: COMMON NORMALS: regular rate, regular rhythm, S1 normal heart sound, S2 normal heart sound and no murmurs RATE: regular rate RHYTHM: regular rhythm HEART SOUNDS: S1 normal and S2 normal GI: COMMON NORMALS: normal to inspection, nondistended, normoactive bowel sounds, soft to palpation and non-tender INSPECTION: Yes central obesity PALPATION: Yes soft : BLADDER/KIDNEY EXAM: Yes catheter in place Catheter type (Female): urethral Extremity: COMMON NORMALS: normal to inspection, full ROM and no clubbing, cyanosis or edema; negative for no pedal edema Neuro: COMMON NORMALS: oriented x3, moves all extremities, no focal motor deficits and no sensory deficits noted Psych: COMMON NORMALS: mental status grossly normal, thought process normal, cooperative, affect normal and speech normal SPEECH: Yes normal speech THOUGHT PROCESS: normal thought process Skin: COMMON NORMALS: no rashes or lesions noted, no jaundice, no petechiae and no mottling GENERAL SKIN EXAM: no rashes or lesions noted Data : 10/26/19 06:13 10/26/19 06:13 A&P Assessment and plan (1) Cirrhosis of liver with ascites: -with noted generalized anasarca -complicated by portal hypertension and varices -on oral Lasix -etiology of liver cirrhosis likely BRIDGES as non-smoker and no EtOH abuse hx -f/u with Dr. Powers; had recent escalation of diuretics secondary to increased LE weeping edema (Lasix + Metolazone) -daily weights, Is & Os -noted LFTs, overall trending down. Hepatitis panel negative -on ceftriaxone for SBP ppx -continue lactulose, rifaximin Status: Acute Qualifiers: Hepatic cirrhosis type: unspecified hepatic cirrhosis Qualified Code(s): K74.60 - Unspecified cirrhosis of liver; R18.8 - Other ascites Code(s): K74.60 - Unspecified cirrhosis of liver; R18.8 - Other ascites (2) Thrombocytopenia: -likely secondary to underlying liver cirrhosis -no antiplatelets or anticoagulation due to bleeding risk -stable platelet count so far -noted elevated free kappa and lamda light chains on SPEP; UPEP with no M spike noted. Following up with Dr. Aguila Status: Acute Code(s): D69.6 - Thrombocytopenia, unspecified (3) Anemia: -H/H stable -noted elevated B12, stop supplementation -continue to trend Hg -has been f/u with Dr. Aguila Status: Acute Qualifiers: Anemia type: unspecified type Qualified Code(s): D64.9 - Anemia, unspecified Code(s): D64.9 - Anemia, unspecified Additional A&P Information -Morbid obesity: BMI-53 kg/m2 -HTN; hemodynamically stable -Hyperlipidemia -Recurrent falls, generalized weakness; fall precautions, PT/OT evaluations -CKD unknown stage; baseline Cr around 1.3-1.5 -GERD -[place] -OA, fibromyalgia, gout -Anxiety/depression -Chronic diastolic CHF: Echo (08/2019): EF=60%, no RWMA, GIDD. Follows up with Dr. Dukes -GI ppx with PPI -DVT ppx with SCDs; no AC due to noted anemia and thrombocytopenia -Dispo: agreeable to SNF, prefers [facility] -Code status: FULL code Attestations Medical Necessity Statement*: Patient requires hospitalization for continued diuresis, pending decision on appropriate disposition. Time Spent in Patient Care: Greater than 35 minutes (>than 50% of time spent in counselling and/or direct pt care on unit) . 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
[2019-10-26 16:00] VITALS: BP 114/67; PULSE 77; RESP 18; TEMP 36.6; O2SAT 91
[2019-10-26] MEDS: pantoprazole DR 40 mg Tablet PO (17:02)
[2019-10-26] MEDS: cefTRIAXone 1,000 MG in sodium chloride 0.9% (plus) 50 ML 100 MG IV (23:12)
[2019-10-27] VITALS: BP 118/68; PULSE 69; RESP 20; TEMP 36.8; O2SAT 90
[2019-10-27 04:00] VITALS: BP 126/68; PULSE 72; RESP 20; TEMP 36.7; O2SAT 89
[2019-10-27] MEDS: metroNIDAZOLE IV 500 MG/100 ML PREMIX 100 MG IV ×3 (04:18→20:50)
[2019-10-27 05:41] LABS: Alanine Aminotransferase 22 U/L (0-33); Albumin Level 2.7 g/dL (3.5-5.2); Alkaline Phosphatase 124 IU/L (35-105); Anion Gap 13.6 (5-19); Blood Urea Nitrogen 27 mg/dL (8-23); Calcium 9.7 mg/dL (8.5-10.5); Carbon Dioxide 29 mmol/L (22-29); Chloride 99 mmol/L (98-107); Globulin 3.5 g/dL (1.3-4.6); Glucose 97 mg/dL (65-115); Osmolality Calculated 283 mOsm/kg (285-295); Potassium 3.6 mmol/L (3.5-5.1); Sodium 138 mmol/L (136-145); Total Bilirubin 2.4 mg/dL (0.15-1.2); Total Protein 6.2 g/dL (6.6-8.7)
[2019-10-27 05:56] LABS: Basophils % 0.9 %; Eosinophils # 0.1 10^3/uL (0.0-0.8); Eosinophils % 2.2 %; Hemoglobin 9.3 g/dL (11.5-15.3); Lymphocytes # 1.1 10^3/uL (0.8-4.8); Lymphocytes % 24.8 %; Mean Corpuscular HGB Conc 32.1 g/dL (30.0-36.0); Mean Corpuscular Hemoglobin 34.2 pg (28.0-34.0); Mean Corpuscular Volume 106.6 fL (81-99); Mean Platelet Volume 12.5 fL (7.4-10.4); Monocytes # 0.5 10^3/uL (0.2-0.9); Monocytes % 10.4 %; Neutrophils # 2.8 10^3/uL (1.8-7.7); Nucleated Red Blood Cells % 0 %; Platelet Count 44 10^3/cmm (130-400); Red Blood Count 2.72 10^6/uL (4.1-5.3); Red Cell Distribution Width 15.9 % (12.1-15.1); White Blood Count 4.5 10^3/uL (4.0-10.0)
[2019-10-27 06:17] LABS: Aspartate Amino Transferase 46 U/L (0-32)
[2019-10-27 08:00] VITALS: BP 131/94; PULSE 73; RESP 20; TEMP 36.9; O2SAT 90
[2019-10-27] MEDS: pantoprazole DR 40 mg Tablet PO ×2 (08:46→17:47)
--- NOTE | 2019-10-27 08:52 | US_ITS ---
WS: [id number] US abdomen lmt fluid [id number] REASON FOR EXAM: abdominal distention, evaluate for ascites FINDINGS: Small to moderate amounts of ascites are seen in the outer quadrants. US/US abdomen lmt fluid [id number] IMPRESSION: Small to moderate amounts of ascites present in the abdomen.
[2019-10-27] MEDS: duloxetine 30 mg Capsule PO (08:53)
[2019-10-27] MEDS: FUROsemide 40 mg Tablet 80 MG PO ×2 (08:53→17:48)
[2019-10-27] MEDS: meclizine 25 mg tablet PO (08:53)
--- NOTE | 2019-10-27 08:53 | PM.PN ---
Subjective Subjective: Interval history: AM labs noted, had 550 mL urine output overnight, no BMs. VSS, afebrile. Improving LFTs, stable Hg. Will order abdomen US to evaluate for possible ascites given abdominal distention. Will resume BB and add Aldactone to optimize diuresis. Patient seen and examined, friend at bedside, alert, seems to be in good spirits, mild improvement in appetite today. Had a watery BM (small) earlier this AM. Has been accepted at [facility] but does not feel quite up to transitioning there today. Medications: Reviewed: Yes Medication Review Details: Active Medications Generic Name Dose Route Start Last Admin Trade Name Freq PRN Reason Stop Dose Admin Atenolol 25 mg 10/27/19 09:00 Tenormin PO DAILY KYLE Furosemide 80 mg 10/24/19 09:00 10/27/19 08:53 Lasix PO 80 mg BID KYLE Administration Ceftriaxone Sodium 1,000 mg/ 50 mls @ 100 mls/ hr 10/23/19 23:00 10/27/19 08:44 Sodium Chloride IV Infused Q24H KYLE Infusion Protocol Metronidazole 500 mg in 100 mls @ 100 mls/hr 10/24/19 18:00 10/27/19 08:44 Flagyl Iv IV Infused Q8H KYLE Infusion Protocol Lactulose 10 gm 10/24/19 09:00 10/27/19 08:45 Constulose PO Not Given BID KYLE Meclizine HCl 25 mg 10/24/19 09:00 10/27/19 08:53 Antivert PO 25 mg BID KYLE Administration Ondansetron HCl 4 mg 10/23/19 21:57 10/24/19 11:13 Zofran IVP 4 mg Q6H PRN Administration NAUSEA AND VOMITI NG Pantoprazole Sodiu m 40 mg 10/26/19 18:00 10/27/19 08:46 Protonix PO 40 mg BID KYLE Administration Polyethylene Glyco l 17 gm 10/24/19 09:00 10/27/19 08:48 Miralax PO Not Given DAILY KYLE Potassium Chloride 40 meq 10/26/19 09:00 10/27/19 08:51 Klor-Con 10 PO 40 meq DAILY KYLE Administration Spironolactone 50 mg 10/27/19 09:00 Aldactone PO DAILY KYLE No Known Allergies Allergy (Verified 10/23/19 17:39) Vitals/I&O/Wt Last Vital Signs Temp 98.0 F 10/27/19 04:00 Pulse 72 10/27/19 04:00 Resp 20 H 10/27/19 04:00 BP 126/68 10/27/19 04:00 Pulse Ox 89 L 10/27/19 04:00 10/26/19 10/27/19 10/27/19 22:59 06:59 14:59 Intake Total 360 / 1180 200 / 1380 150 / 150 Output Total 1050 / 1050 200 / 1250 Balance -690 / 130 0 / 130 150 / 150 Physical Exam Const: COMMON NORMALS: no apparent distress and oriented x3 GENERAL APPEARANCE: cooperative and comfortable; not ill appearing NUTRITIONAL APPEARANCE: obese morbidly obese ORIENTATION/CONSCIOUSNESS: Yes awake HENMT: COMMON NORMALS: normocephalic, head/scalp atraumatic, hearing grossly normal bilaterally and moist oral mucous membranes HEAD & SCALP: normocephalic and atraumatic TEETH & GINGIVA: Yes dentures Eye: COMMON NORMALS: PERRL, EOMs intact bilaterally and conjunctivae normal CONJUNCTIVA: Yes conjunctivae normal PUPIL: Yes PERRL Neck/C-Spine: COMMON NORMALS: full ROM GENERAL: Yes normal visual inspection and Yes trachea midline Resp: COMMON NORMALS: normal respiratory effort, no retractions, no use of accessory muscles and clear to auscultation bilaterally EFFORT & INSPECTION: Yes able to speak in complete sentences, Yes symmetric chest movement and No tachypneic AUSCULTATION: clear to auscultation bilaterally Cardio: COMMON NORMALS: regular rate, regular rhythm, S1 normal heart sound, S2 normal heart sound and no murmurs RATE: regular rate RHYTHM: regular rhythm HEART SOUNDS: S1 normal and S2 normal GI: COMMON NORMALS: soft to palpation and non-tender INSPECTION: Yes abdominal distension (minimal) and Yes central obesity AUSCULTATION: Yes normoactive bowel sounds PALPATION: Yes soft and No tender Extremity: COMMON NORMALS: normal to inspection, full ROM and no clubbing, cyanosis or edema; negative for no pedal edema Neuro: COMMON NORMALS: oriented x3, moves all extremities, no focal motor deficits and no sensory deficits noted Psych: COMMON NORMALS: mental status grossly normal, thought process normal, cooperative, affect normal and speech normal SPEECH: Yes normal speech THOUGHT PROCESS: normal thought process Skin: COMMON NORMALS: no rashes or lesions noted, no jaundice, no petechiae and no mottling GENERAL SKIN EXAM: no rashes or lesions noted Data : 10/27/19 04:15 10/27/19 04:15 A&P Assessment and plan (1) Cirrhosis of liver with ascites: -with noted generalized anasarca -complicated by portal hypertension and varices -has some noted abdominal distention, noted to have small to moderate ascites on abdomen US -on oral Lasix; add Aldactone to optimize diuresis -etiology of liver cirrhosis likely BRIDGES as non-smoker and no EtOH abuse hx -f/u with Dr. Powers; had recent escalation of diuretics secondary to increased LE weeping edema (Lasix + Metolazone) -daily weights, Is & Os -noted LFTs, overall trending down. Hepatitis panel negative -on ceftriaxone for SBP ppx -continue lactulose, rifaximin -resume Atenolol Status: Acute Qualifiers: Hepatic cirrhosis type: unspecified hepatic cirrhosis Qualified Code(s): K74.60 - Unspecified cirrhosis of liver; R18.8 - Other ascites Code(s): K74.60 - Unspecified cirrhosis of liver; R18.8 - Other ascites (2) Thrombocytopenia: -likely secondary to underlying liver cirrhosis -no antiplatelets or anticoagulation due to bleeding risk -worsening platelet count today, continue to trend -noted elevated free kappa and lamda light chains on SPEP; UPEP with no M spike noted. Following up with Dr. Aguila Status: Acute Code(s): D69.6 - Thrombocytopenia, unspecified (3) Anemia: -H/H stable -noted elevated B12, stop supplementation -continue to trend Hg -has been f/u with Dr. Aguila Status: Acute Qualifiers: Anemia type: unspecified type Qualified Code(s): D64.9 - Anemia, unspecified Code(s): D64.9 - Anemia, unspecified Additional A&P Information -Morbid obesity: BMI-53 kg/m2 -HTN; hemodynamically stable -Hyperlipidemia -Recurrent falls, generalized weakness; fall precautions, PT/OT evaluations -CKD unknown stage; baseline Cr around 1.3-1.5 -GERD -[place] -OA, fibromyalgia, gout -Anxiety/depression -Chronic diastolic CHF: Echo (08/2019): EF=60%, no RWMA, GIDD. Follows up with Dr. Dukes -Noted R 7th rib fracture on CXR -GI ppx with PPI -DVT ppx with SCDs; no AC due to noted anemia and thrombocytopenia -Dispo: agreeable to SNF, prefers [facility] -Code status: FULL code Attestations Medical Necessity Statement*: Patient requires hospitalization for continued management of cirrhosis with ascites, pending appropriate disposition. Time Spent in Patient Care: 16 - 35 minutes (>than 50% of time spent in counselling and/or direct pt care on unit). 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
--- NOTE | 2019-10-27 09:06 | P.DS_ITS ---
Discharge Providers Date of Admission: 10/24/19 16:02 Date of Discharge: October 28, 2019 Attending Provider at Admission: Brock Almanzar MD Attending Provider at Discharge: Ariana Roebrts MD Primary Care Provider: Delvis Ortiz DO Diagnoses at Discharge Discharge Diagnosis (1) Cirrhosis of liver with ascites: Status: Chronic Problem details: -with noted generalized anasarca -complicated by portal hypertension and varices -has some noted abdominal distention, noted to have small to moderate ascites on abdomen US -on oral Lasix; added Aldactone to optimize diuresis -etiology of liver cirrhosis likely BRIDGES as non-smoker and no EtOH abuse hx -f/u with Dr. Powers; had recent escalation of diuretics secondary to increased LE weeping edema (Lasix + Metolazone) -daily weights, Is & Os -noted LFTs, overall trending down. Hepatitis panel negative -on ceftriaxone for SBP ppx -continue lactulose, rifaximin -resumed Atenolol Qualifiers: Hepatic cirrhosis type: unspecified hepatic cirrhosis Qualified Code(s): K74.60 - Unspecified cirrhosis of liver; R18.8 - Other ascites (2) Thrombocytopenia: Status: Acute Problem details: -likely secondary to underlying liver cirrhosis -no antiplatelets or anticoagulation due to bleeding risk -stable platelet count today, continue to trend -noted elevated free kappa and lamda light chains on SPEP; UPEP with no M spike noted. Following up with Dr. Aguila (3) Anemia: Status: Acute Problem details: -H/H stable -noted elevated B12, stop supplementation -continue to trend Hg -has been f/u with Dr. Aguila Qualifiers: Anemia type: unspecified type Qualified Code(s): D64.9 - Anemia, unspecified Other Information Additional DC diagnoses/information: -Morbid obesity: BMI-53 kg/m2 -HTN; hemodynamically stable -Hyperlipidemia -Recurrent falls, generalized weakness; fall precautions, PT/OT evaluations -CKD unknown stage; baseline Cr around 1.3-1.5 -GERD -[place] -OA, fibromyalgia, gout -Anxiety/depression -Chronic diastolic CHF: Echo (08/2019): EF=60%, no RWMA, GIDD. Follows up with Dr. Dukes -Noted R 7th rib fracture on CXR Reason for Visit Reason for Visit: Reason For Visit: NOT FEELING WELL Hospital Course Hospital Course: Patient was admitted to the medical surgical floor and started on lactulose, rifaximin and empiric antibiotic therapy secondary to suspicion for SBP. She had had prior imaging done indicating liver cirrhosis with associated portal hypertension, splenomegaly, varices and generalized ascites for which she has been following up with Dr. Powers. She was continued on oral Lasix and I have added Aldactone as well to optimize her diuresis. She was initially quite lethargic but with aforementioned treatment her clinical sta tus gradually improved and her mental status has improved as well. She has been hemodynamically stable, afebrile. She is quite deconditioned and requiring maximum assistance for any out of bed activity, high fall risk. She has been evaluated by therapy and has agreed to SNF placement. Her hemoglobin has been stable in the 9-10 range and her creatinine has been at her baseline of 1.3-1.5. She is chronically thrombocytopenic with her lowest platelet count during this hospitalization being 44 with no noted active bleeding. She has been following up with Dr. Aguila as well for the thrombocytopenia and will need to continue to do this on discharge. Her liver function tests were found to be elevated but have gradually been trending downward. Incidentally she was noted to have a right seventh rib fracture but is asymptomatic. I have discontinued meloxicam secondary to her severe thrombocytopenia. She has been on potassium supplementation which have continued but she may require follow-up of her potassium levels with addition of Aldactone to prevent overcorrection of potential hypokalemia. Discharge Summary: -Patient to follow-up with her primary care physician within 1 week -Patient to continue to follow-up with Dr. Powers, in 1 to 2 weeks -Patient to continue to follow-up with Dr. Aguila Physical Exam Const: COMMON NORMALS: no apparent distress and oriented x3 GENERAL APPEARANCE: cooperative and comfortable; not ill appearing NUTRITIONAL APPEARANCE: obese morbidly obese ORIENTATION/CONSCIOUSNESS: Yes awake HENMT: COMMON NORMALS: normocephalic, head/scalp atraumatic, hearing grossly normal bilaterally and moist oral mucous membranes HEAD & SCALP: normocephalic and atraumatic TEETH & GINGIVA: Yes dentures Eye: COMMON NORMALS: PERRL, EOMs intact bilaterally and conjunctivae normal CONJUNCTIVA: Yes conjunctivae normal PUPIL: Yes PERRL Neck/C-Spine: COMMON NORMALS: full ROM GENERAL: Yes normal visual inspection and Yes trachea midline Resp: COMMON NORMALS: normal respiratory effort, no retractions, no use of accessory muscles and clear to auscultation bilaterally EFFORT & INSPECTION: Yes able to speak in complete sentences, Yes symmetric chest movement and No tachypneic AUSCULTATION: clear to auscultation bilaterally Cardio: COMMON NORMALS: regular rate, regular rhythm, S1 normal heart sound, S2 normal heart sound and no murmurs RATE: regular rate RHYTHM: regular rhythm HEART SOUNDS: S1 normal and S2 normal GI: COMMON NORMALS: normal to inspection, nondistended, normoactive bowel sounds, soft to palpation and non-tender INSPECTION: Yes central obesity PALPATION: Yes soft : BLADDER/KIDNEY EXAM: Yes catheter in place Catheter type (Female): urethral Extremity: COMMON NORMALS: normal to inspection, full ROM and no clubbing, cyanosis or edema; negative for no pedal edema Neuro: COMMON NORMALS: oriented x3, moves all extremities, no focal motor deficits and no sensory deficits noted Psych: COMMON NORMALS: mental status grossly normal, thought process normal, cooperative, affect normal and speech normal SPEECH: Yes normal speech THOUGHT PROCESS: normal thought process Skin: COMMON NORMALS: no rashes or lesions noted, no jaundice, no petechiae and no mottling GENERAL SKIN EXAM: no rashes or lesions noted Discharge Data Data Completed and Pending: Completed Studies During Hospitalization Category Date Time Status CT head wo con* 7 0450 Stat Cat Scan 10/23/19 17:59 Completed XR KUB 18144 Rout ine Exams 10/23/19 22:27 Completed XR ribs RT mn 3V w CXR1V [id number] Stat Exams 10/23/19 18:16 Completed Pending at discharge Category Date Time Status Complete Blood Co unt w/Auto AM LABS Lab 10/28/19 04:00 Ordered Comprehensive Met abolic Panel AM LA BS Lab 10/28/19 04:00 [place]dered [place] [id number] Routine Ultrasound 10/27/19 08:52 Ordered Labs from last 24 hours 10/27/19 10/27/19 04:15 04:15 WBC 4.5 RBC 2.72 L Hgb 9.3 L Hct 29.0 L MCV 106.6 H MCH 34.2 H MCHC 32.1 RDW 15.9 H Plt Count 44 L MPV 12.5 H Neut % (Auto) 61.0 Lymph % (Auto) 24.8 [place]ois % (Auto) 10.4 Eos % (Auto) 2.2 Baso % (Auto) 0.9 Neut # (Auto) 2.8 Lymph # (Auto) 1.1 [place] # (Auto) 0.5 Eos # (Auto) 0.1 Baso # (Auto) 0.0 Nucleated RBC % (a uto) 0 Nucleated RBCs # 0.0 Sodium 138 Potassium 3.6 Chloride 99 Carbon Dioxide 29 Anion Gap 13.6 BUN 27 H Creatinine 1.3 H Glucose 97 Calculated Osmolal ity 283 L Calcium 9.7 Total Bilirubin 2.4 H AST 46 H ALT 22 Alkaline Phosphata se 124 H Total Protein 6.2 L Albumin 2.7 L Globulin 3.5 Vitals: Last Vital Signs Temp 98.4 F 10/27/19 08:00 Pulse 73 10/27/19 08:00 Resp 20 H 10/27/19 08:00 BP 131/94 10/27/19 08:00 Pulse Ox 90 10/27/19 08:00 Discharge Plan Discharge Patient Disposition: Xfer SNF Condition: Stable Prescriptions: New potassium chloride 10 mEq Tablet Extended Release 40 meq PO DAILY 30 Days Qty: 120 RF: 0 spironolactone 25 mg Tablet 50 mg PO DAILY 30 Days Qty: 60 RF: 0 pantoprazole 40 mg Tablet,Delayed Release (Dr/Ec) 40 mg PO BID 30 Days Qty: 60 RF: 0 Xifaxan 550 mg Tablet 550 mg PO BID 30 Days Qty: 60 RF: 0 lactulose 20 gram/30 mL Solution 10 g PO BID Qty: 30 RF: 0 Continued cholecalciferol (vitamin D3) 2,000 unit tablet 2,000 unit PO DAILY RF: 0 furosemide 40 mg tablet 80 mg PO BID 30 Days Qty: 120 RF: 0 atenolol 25 mg tablet 25 mg PO DAILY 30 Days Qty: 30 RF: 0 duloxetine 30 mg Capsule,Delayed Release(Dr/Ec) 30 mg PO DAILY 30 Days Qty: 30 RF: 0 cholecalciferol (vitamin D3) 2,000 unit/drop drops 2,000 unit PO DAILY Qty: 30 RF: 0 Changed meclizine 25 mg tablet 25 mg PO BID PRN (Reason: Dizziness Or Vertigo) 30 Days Qty: 60 RF: 0 Discontinued meloxicam 7.5 mg Tablet 7.5 mg PO BID RF: 0 cyanocobalamin (vitamin B-12) 1,000 mcg/mL Solution See Rx Instructions .ROUTE .COMPLEX RF: 0 Discharge Orders: Discharge Order (Routine); Ordered 10/28/19 Ordered By: Ariana Roberts Referrals: Brandon Powers MD [Physician] - 2 weeks (Continued follow up for liver cirrhosis) Delvis Ortiz DO [Primary Care Provider] - 4-7 days Discharge Diet: Cardiac Discharge Activity: As per PT/OT instructions Activity Restrictions/Additional Instructions: -Continue strict fall precautions as patient is high fall risk Discharge Attestations Time Spent in Discharge Care*: greater than 30 min Specific Discharge Activities: Specific discharge activities: educating patient, educating and/or supporting family/caregiver, discussing with major case detective/social workers/dc planners, documenting/other paperwork and evaluating patient/reviewing data Status at Discharge: Cognitive status at discharge: cognitively intact , Behavioral status at discharge: cooperative , Functional status at discharge: other assisted ambulation Overall status at discharge: patient is back to baseline Quality Metrics Clinical Quality Measures During this hospital stay, did patient experience: None Coding Level of Care Code 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
--- NOTE | 2019-10-27 10:32 | PC.SOCIAL ---
Pg 2 IMM Explained to pt Pg 2 IMM. Pt verbally understands. No questions voiced. Provided pt a signed copy & left on pt's bedside table. Signed, dated, & timed a signed copy & placed in chart.
[2019-10-27] MEDS: atenolol 50 mg Tablet 25 MG PO (10:54)
[2019-10-27] MEDS: spironolactone 25 mg Tablet 50 MG PO (11:00)
--- NOTE | 2019-10-27 11:01 | PC.NURSE ---
PT DROPPED 1TABLET-25MG OF SPIRONOLACTONE, PULLED 1 ADDITIONAL TABLET-25MG
[2019-10-27 11:39] VITALS: BP 130/74; PULSE 65; RESP 20; TEMP 36.6; O2SAT 95
[2019-10-27 16:00] VITALS: BP 115/52; PULSE 63; RESP 18; TEMP 36.6; O2SAT 91
[2019-10-27] MEDS: lactulose oral liq 20 gm/30 mL UDC 10 GM PO (17:50)
[2019-10-27 20:00] VITALS: BP 114/68; PULSE 61; RESP 19; TEMP 36.9; O2SAT 96
[2019-10-27] MEDS: cefTRIAXone 1,000 MG in sodium chloride 0.9% (plus) 50 ML 100 MG IV (22:24)
[2019-10-28] VITALS: BP 112/66; PULSE 60; RESP 18; TEMP 36.7; O2SAT 93
[2019-10-28] MEDS: metroNIDAZOLE IV 500 MG/100 ML PREMIX 100 MG IV (03:39)
[2019-10-28 04:00] VITALS: BP 119/71; PULSE 65; RESP 19; TEMP 36.8; O2SAT 91
[2019-10-28 05:21] LABS: Basophils % 0.2 %; Eosinophils # 0.1 10^3/uL (0.0-0.8); Eosinophils % 2.1 %; Hematocrit 27.9 % (37.0-47.0); Hemoglobin 9.2 g/dL (11.5-15.3); Lymphocytes # 1.3 10^3/uL (0.8-4.8); Lymphocytes % 26.6 %; Mean Corpuscular Hemoglobin 34.2 pg (28.0-34.0); Mean Corpuscular Volume 103.7 fL (81-99); Mean Platelet Volume 11.1 fL (7.4-10.4); Monocytes # 0.5 10^3/uL (0.2-0.9); Neutrophils # 2.9 10^3/uL (1.8-7.7); Neutrophils % 60.1 %; Nucleated Red Blood Cells % 0 %; Platelet Count 67 10^3/cmm (130-400); Red Blood Count 2.69 10^6/uL (4.1-5.3); Red Cell Distribution Width 15.9 % (12.1-15.1); White Blood Count 4.7 10^3/uL (4.0-10.0)
[2019-10-28 05:48] LABS: Alanine Aminotransferase 18 U/L (0-33); Albumin Level 2.4 g/dL (3.5-5.2); Alkaline Phosphatase 134 IU/L (35-105); Anion Gap 9.4 (5-19); Aspartate Amino Transferase 36 U/L (0-32); Blood Urea Nitrogen 24 mg/dL (8-23); Calcium 9.6 mg/dL (8.5-10.5); Carbon Dioxide 36 mmol/L (22-29); Chloride 98 mmol/L (98-107); Globulin 3.9 g/dL (1.3-4.6); Glucose 113 mg/dL (65-115); Osmolality Calculated 288 mOsm/kg (285-295); Potassium 3.4 mmol/L (3.5-5.1); Sodium 140 mmol/L (136-145); Total Bilirubin 2.4 mg/dL (0.15-1.2); Total Protein 6.3 g/dL (6.6-8.7)
[2019-10-28 07:47] VITALS: BP 123/64; PULSE 60; RESP 18; TEMP 36.7; O2SAT 91
--- NOTE | 2019-10-28 09:42 | PM.PN ---
Subjective Subjective: Interval history: AM labs noted, stable platelet count, Hg and renal function, had 500 mL urine output overnight. Discharge to [facility] today. Reports feeling shaky and generally quite weak. Medications: Reviewed: Yes Medication Review Details: Active Medications Generic Name Dose Route Start Last Admin Trade Name Freq PRN Reason Stop Dose Admin Atenolol 25 mg 10/27/19 09:00 10/27/19 10:54 Tenormin PO 25 mg DAILY KYLE Administration Furosemide 80 mg 10/24/19 09:00 10/27/19 17:48 Lasix PO 80 mg BID KYLE Administration Ceftriaxone Sodium 1,000 mg/ 50 mls @ 100 mls/ hr 10/23/19 23:00 10/27/19 22:57 Sodium Chloride IV Infused Q24H KYLE Infusion Protocol Metronidazole 500 mg in 100 mls @ 100 mls/hr 10/24/19 18:00 10/28/19 04:39 Flagyl Iv IV Infused Q8H KYLE Infusion Protocol Lactulose 10 gm 10/24/19 09:00 10/27/19 17:50 Constulose PO 10 gm BID KYLE Administration Meclizine HCl 25 mg 10/24/19 09:00 10/27/19 17:49 Antivert PO Not Given BID KYLE Ondansetron HCl 4 mg 10/23/19 21:57 10/24/19 11:13 Zofran IVP 4 mg Q6H PRN Administration NAUSEA AND VOMITI NG Pantoprazole Sodiu m 40 mg 10/26/19 18:00 10/27/19 17:47 Protonix PO 40 mg BID KYLE Administration Polyethylene Glyco l 17 gm 10/24/19 09:00 10/27/19 08:48 Miralax PO Not Given DAILY KYEL Potassium Chloride 40 meq 10/26/19 09:00 10/27/19 08:51 Klor-Con 10 PO 40 meq DAILY KYLE Administration Spironolactone 50 mg 10/27/19 09:00 10/27/19 11:00 Aldactone PO 50 mg DAILY KYLE Administration No Known Allergies Allergy (Verified 10/23/19 17:39) Vitals/I&O/Wt Last Vital Signs Temp 98.0 F 10/28/19 07:47 Pulse 60 10/28/19 07:47 Resp 18 10/28/19 07:47 BP 123/64 10/28/19 07:47 Pulse Ox 91 10/28/19 07:47 10/27/19 10/28/19 10/28/19 22:59 06:59 14:59 Intake Total 650 / 1000 700 / 1700 Output Total 800 / 800 200 / 1000 Balance -150 / 200 500 / 700 Physical Exam Const: COMMON NORMALS: no apparent distress and oriented x3 GENERAL APPEARANCE: cooperative and comfortable; not ill appearing NUTRITIONAL APPEARANCE: obese morbidly obese ORIENTATION/CONSCIOUSNESS: Yes awake HENMT: COMMON NORMALS: normocephalic, head/scalp atraumatic, hearing grossly normal bilaterally and moist oral mucous membranes HEAD & SCALP: normocephalic and atraumatic TEETH & GINGIVA: Yes dentures Eye: COMMON NORMALS: PERRL, EOMs intact bilaterally and conjunctivae normal CONJUNCTIVA: Yes conjunctivae normal PUPIL: Yes PERRL Neck/C-Spine: COMMON NORMALS: full ROM GENERAL: Yes normal visual inspection and Yes trachea midline Resp: COMMON NORMALS: normal respiratory effort, no retractions, no use of accessory muscles and clear to auscultation bilaterally EFFORT & INSPECTION: Yes able to speak in complete sentences, Yes symmetric chest movement and No tachypneic AUSCULTATION: clear to auscultation bilaterally Cardio: COMMON NORMALS: regular rate, regular rhythm, S1 normal heart sound, S2 normal heart sound and no murmurs RATE: regular rate RHYTHM: regular rhythm HEART SOUNDS: S1 normal and S2 normal GI: COMMON NORMALS: soft to palpation and non-tender INSPECTION: Yes abdominal distension (minimal) and Yes central obesity AUSCULTATION: Yes normoactive bowel sounds PALPATION: Yes soft and No tender : BLADDER/KIDNEY EXAM: Yes catheter in place Catheter type (Female): urethral Extremity: COMMON NORMALS: normal to inspection, full ROM and no clubbing, cyanosis or edema; negative for no pedal edema NARRATIVE EXTREMITY EXAM: -lymphedema wraps in place (LLE) Neuro: COMMON NORMALS: oriented x3, moves all extremities, no focal motor deficits and no sensory deficits noted Psych: COMMON NORMALS: mental status grossly normal, thought process normal, cooperative, affect normal and speech normal SPEECH: Yes normal speech THOUGHT PROCESS: normal thought process Skin: COMMON NORMALS: no rashes or lesions noted, no jaundice, no petechiae and no mottling GENERAL SKIN EXAM: no rashes or lesions noted Data : 10/28/19 04:59 10/28/19 04:59 A&P Assessment and plan (1) Cirrhosis of liver with ascites: -with noted generalized anasarca -complicated by portal hypertension and varices -has some noted abdominal distention, noted to have small to moderate ascites on abdomen US -on oral Lasix; added Aldactone to optimize diuresis -etiology of liver cirrhosis likely BRIDGES as non-smoker and no EtOH abuse hx -f/u with Dr. Powers; had recent escalation of diuretics secondary to increased LE weeping edema (Lasix + Metolazone) -daily weights, Is & Os -noted LFTs, overall trending down. Hepatitis panel negative -on ceftriaxone for SBP ppx -continue lactulose, rifaximin -resumed Atenolol Status: Chronic Qualifiers: Hepatic cirrhosis type: unspecified hepatic cirrhosis Qualified Code(s): K74.60 - Unspecified cirrhosis of liver; R18.8 - Other ascites Code(s): K74.60 - Unspecified cirrhosis of liver; R18.8 - Other ascites (2) Thrombocytopenia: -likely secondary to underlying liver cirrhosis -no antiplatelets or anticoagulation due to bleeding risk -stable platelet count today, continue to trend -noted elevated free kappa and lamda light chains on SPEP; UPEP with no M spike noted. Following up with Dr. Aguila Status: Acute Code(s): D69.6 - Thrombocytopenia, unspecified (3) Anemia: -H/H stable -noted elevated B12, stop supplementation -continue to trend Hg -has been f/u with Dr. Aguila Status: Acute Qualifiers: Anemia type: unspecified type Qualified Code(s): D64.9 - Anemia, unspecified Code(s): D64.9 - Anemia, unspecified Additional A&P Information -Morbid obesity: BMI-53 kg/m2 -HTN; hemodynamically stable -Hyperlipidemia -Recurrent falls, generalized weakness; fall precautions, PT/OT evaluations -CKD unknown stage; baseline Cr around 1.3-1.5 -GERD -NOLA -OA, fibromyalgia, gout -Anxiety/depression -Chronic diastolic CHF: Echo (08/2019): EF=60%, no RWMA, GIDD. Follows up with Dr. Dukes -Noted R 7th rib fracture on CXR -GI ppx with PPI -DVT ppx with SCDs; no AC due to noted anemia and thrombocytopenia -Dispo: agreeable to SNF, prefers [facility] -Code status: FULL code Attestations Medical Necessity Statement*: Discharge today. Time Spent in Patient Care: Greater than 35 minutes (>than 50% of time spent in counselling and/or direct pt care on unit). Coding Level of Care Code Acute Composition Stone Applicator for g Fwd Diagnoses Cirrhosis of liver with ascites K74.60; R18.8 Hepatic cirrhosis type: unspecified hepatic cirrhosis Thrombocytopenia D69.6 Anemia D64.9 Anemia type: unspecified type
[2019-10-28] MEDS: duloxetine 30 mg Capsule PO (10:24)
[2019-10-28] MEDS: meclizine 25 mg tablet PO (10:24)
[2019-10-28] MEDS: spironolactone 25 mg Tablet 50 MG PO (10:25)
[2019-10-28] MEDS: FUROsemide 40 mg Tablet 80 MG PO (10:26)
[2019-10-28] MEDS: atenolol 50 mg Tablet 25 MG PO (10:27)
[2019-10-28] MEDS: pantoprazole DR 40 mg Tablet PO (10:28)
[2019-10-28] MEDS: lactulose oral liq 20 gm/30 mL UDC 10 GM PO (10:35)
[2019-10-28] MEDS: polyethylene glycol 3350 Pkt 17 gm PO (10:36)
[2019-10-28 11:06] VITALS: BP 123/64; PULSE 60; RESP 18; TEMP 36.7; O2SAT 91
[2019-10-28 11:20] VITALS: BP 123/64; PULSE 60; RESP 18; TEMP 36.7; O2SAT 91
== END 2019-10-28 11:21 | disposition skilled nursing facility (03) | DRG 433 ==
LOC: ER 21:16 → MEDSURG 10-24 07:06
PROVIDERS: Family Medicine; Internal Medicine; Admitting Provider Internal Medicine; Emergency Provider Emergency Medicine; Family Provider Electrodiagnostic Medicine; PCP Electrodiagnostic Medicine; Visit Provider Family Medicine
DX: K74.60 Unspecified cirrhosis of liver (principal); R18.8 Other ascites; I50.32 Chronic diastolic (congestive) heart failure; I13.0 Hypertensive heart and chronic kidney disease with heart failure and stage 1 through stage 4 chronic kidney disease, or unspecified chronic kidney disease; K76.6 Portal hypertension; Z68.43 Body mass index [BMI] 50.0-59.9, adult; D69.6 Thrombocytopenia, unspecified; E78.5 Hyperlipidemia, unspecified; N18.9 Chronic kidney disease, unspecified; K21.9 Gastro-esophageal reflux disease without esophagitis; G47.33 Obstructive sleep apnea (adult) (pediatric); M19.90 Unspecified osteoarthritis, unspecified site; M79.7 Fibromyalgia; M10.9 Gout, unspecified; F41.8 Other specified anxiety disorders; D63.1 Anemia in chronic kidney disease; R32 Unspecified urinary incontinence; E87.6 Hypokalemia; E66.01 Morbid (severe) obesity due to excess calories; Z91.19 Patient's noncompliance with other medical treatment and regimen; Z87.891 Personal history of nicotine dependence; Z79.51 Long term (current) use of inhaled steroids; Z79.83 Long term (current) use of bisphosphonates; Z79.899 Other long term (current) drug therapy
CPT/HCPCS: 12345; 36415; 70450; 71101; 74018; 76705; 80053; 81003; 82550; 82607; 83880; 84484; 85025; 93005; 96375; 97116; 97140; 97161; 97530; 99283; A9270; G0378; J0696; J2405; J3480; J8597; S0030

== ENCOUNTER 2019-11-24 17:48 | Inpatient (IN) | payer MEDICARE, OTHER, SELFPAY ==
--- NOTE | 2019-11-24 17:56 | CTR_ITS ---
PROCEDURE INFORMATION: Exam: CT Head Without Contrast Exam date and time: 11/24/2019 6:23 PM Age: 84 years old Clinical indication: Altered mental status/memory loss; Additional info: AMS TECHNIQUE: Imaging protocol: Computed tomography of the head without contrast. Total DLP: 832.85 mGy-cm Radiation optimization: All CT scans at this facility use at least one of these dose optimization techniques: automated exposure control; mA and/or kV adjustment per patient size (includes targeted exams where dose is matched to clinical indication); or iterative reconstruction. COMPARISON: CT head wo con* [id number] 10/23/2019 6:22 PM FINDINGS: Brain: Unremarkable for age. No hemorrhage. Unremarkable white matter. No mass effect. Ventricles: Unremarkable for age. No ventriculomegaly. Bones/joints: Unremarkable. No acute fracture. Sinuses: Visualized sinuses are unremarkable. No fluid levels. Mastoid air cells: Visualized mastoid air cells are well aerated. Soft tissues: Unremarkable. Vasculature: Cerebral arterial sclerosis. CT/CT head wo con* [id number] IMPRESSION: 1. No visible active or acute intracranial pathologic process. 2. Cerebral arterial sclerosis. Radiation Dose CTDIVOL = (mGy): DLP = 832.85 (mGy-cm)
--- NOTE | 2019-11-24 17:56 | XR_ITS ---
WS: [id number] PORTABLE CHEST HISTORY: ams COMPARISON: 10/23/2019 Mild elevation of the RIGHT hemidiaphragm. No pleural effusion or pneumothorax. Cardiac size: Moderately enlarged cardiac silhouette. Mediastinum/Aorta: Normal mediastinum. Bones are osteopenic. XR/XR chest 1V portable [id number] IMPRESSION: Moderate cardiomegaly. No acute interval change.
[2019-11-24 17:58] VITALS: BMI 49.7
--- NOTE | 2019-11-24 18:00 | ED_ITS ---
HPI - Altered Mental Status General: Chief Complaint: Weakness Stated Complaint: GENERALIZED WEAKNESS Time Seen by Provider: 11/24/19 17:49 Source: patient and EMS Mode of arrival: EMS History of Present Illness: HPI narrative: 84-year-old female who has a history of cirrhosis was noted a month ago for increased liver enzymes. Patient has been at senior living apparently home she has had some increased weakness and confusion. Patient is here able to answer all my questions appropriately including the year. She states she has had some difficulty walking and it waxes and wanes. She is on lactulose. She denies any fevers or pain anywhere. She has had no cough. MD complaint: confusion and weakness Onset (ago): day(s) Severity: mild Consistency of symptoms: Waxing and Waning Associated symptoms: Deny depression Review of Systems Const: Denies: fever, chills, body aches or change in appetite Eyes: Denies: blurry vision or eye discomfort ENMT: Denies: throat pain or dental pain Card: Denies: chest pain Resp: Denies: shortness of breath GI: Denies: abdominal pain, nausea, vomiting or diarrhea : Denies: painful urination Musc: Denies: neck pain or back pain Skin/Breast: Denies: rash Neuro: Reports: weakness in extremities Psych: Denies: depression Davis/Lymph: Denies: easy bruising All/Imm: Denies: hives PFSH ED PFSH: Medical History Acute on chronic diastolic (congestive) heart failure The EKG revealed sinus rhythm with poor R wave progression. No acute ST-T changes Ascites Cirrhosis of liver with ascites -with noted generalized anasarca -complicated by portal hypertension and varices -has some noted abdominal distention, noted to have small to moderate ascites on abdomen US -on oral Lasix; added Aldactone to optimize diuresis -etiology of liver cirrhosis likely BRIDGES as non-smoker and no EtOH abuse hx -f/u with Dr. Powers; had recent escalation of diuretics secondary to increased LE weeping edema (Lasix + Metolazone) -daily weights, Is & Os -noted LFTs, overall trending down. Hepatitis panel negative -on ceftriaxone for SBP ppx -continue lactulose, rifaximin -resumed Atenolol Diabetes Fibromyalgia GERD (gastroesophageal reflux disease) Heart murmur, systolic Hyperlipidemia Hypertension Localized swelling of both lower legs Narcolepsy Osteoarthritis Sleep apnea Vitamin B12 deficiency Vitamin D deficiency Surgical History History of appendectomy History of cataract surgery Hx of cholecystectomy Family History Father Cancer Denies family history of Clotting disorder Chronic kidney disease (CKD) Social History Smoking and tobacco status: never smoked Quit status (tobacco): has quit using tobacco Former quit date comment: She quit smoking when she was young Alcohol intake: never Marital status: History of recent travel: No Current gender identity: Female Physical Exam Const: COMMON NORMALS: no apparent distress, oriented x3 and healthy appearing HENMT: COMMON NORMALS: normocephalic and head/scalp atraumatic HEAD & SCALP: normocephalic and atraumatic Eye: COMMON NORMALS: PERRL and EOMs intact bilaterally PUPIL: Yes PERRL Neck/C-Spine: COMMON NORMALS: full ROM and supple Chest: COMMONS NORMALS: inspection of chest normal and palpation of chest normal Resp: COMMON NORMALS: normal respiratory effort, no retractions, no use of accessory muscles and clear to auscultation bilaterally AUSCULTATION: clear to auscultation bilaterally Cardio: COMMON NORMALS: regular rate, regular rhythm and no murmurs RATE: regular rate RHYTHM: regular rhythm GI: COMMON NORMALS: normal to inspection, nondistended, normoactive bowel sounds, soft to palpation, non-tender and no masses PALPATION: Yes soft Extremity: COMMON NORMALS: normal to inspection and full ROM Neuro: COMMON NORMALS: oriented x3, moves all extremities and no focal motor deficits Psych: COMMON NORMALS: mental status grossly normal, thought process normal and cooperative THOUGHT PROCESS: normal thought process Skin: COMMON NORMALS: no rashes or lesions noted and no wounds NARRATIVE SKIN EXAM: juandiced GENERAL SKIN EXAM: no rashes or lesions noted Course Vital Signs: Vital signs: Vital Signs Temperature 97.7 F 11/24/19 18:01 Pulse Rate 59 L 11/24/19 20:37 Respiratory Rate 18 11/24/19 20:37 Blood Pressure 123/56 11/24/19 20:37 Pulse Oximetry 96 11/24/19 20:37 MDM - Altered Mental Status MDM Narrative: Medical decision making narrative: Patient presents here with dehydration along with acute kidney injury. Will start patient on IV fluids spoke to Dr. Bartlett who is admitting. Patient has an elevated bilirubin as well with history of cirrhosis. Ultrasound here is normal. Patient's ammonia level is normal and she has no signs of infection at this time. Lab Data: Labs: Lab Results 11/24/19 11/24/19 11/24/19 Range/Units 18:10 18:10 18:10 WBC 13.0 H (4.0-10.0) 10^3/ uL RBC 3.22 L (4.1-5.3) 10^6/u L Hgb 11.3 L (11.5-15.3) g/dL Hct 33.6 L (37.0-47.0) % MCV 104.3 H (81-99) fL MCH 35.1 H (28.0-34.0) pg MCHC 33.6 (30.0-36.0) g/dL RDW 16.8 H (12.1-15.1) % Plt Count 77 L (130-400) 10^3/c mm MPV 11.6 H (7.4-10.4) fL Neut % (Auto) 72.4 % Lymph % (Auto) 15.4 % [place] % (Auto) 10.5 % Eos % (Auto) 1.1 % Baso % (Auto) 0.2 % Neut # (Auto) 9.4 H (1.8-7.7) 10^3/u L Lymph # (Auto) 2.0 (0.8-4.8) 10^3/u L [place] # (Auto) 1.4 H (0.2-0.9) 10^3/u L Eos # (Auto) 0.1 (0.0-0.8) 10^3/u L Baso # (Auto) 0.0 (0.0-0.1) 10^3/u L Nucleated RBC % (a uto) 0 % Nucleated RBCs # 0.0 /100WBC PT 16.20 H (10.5-13.3) SECO NDS INR 1.29 H (0.8-1.2) Sodium 126 L (136-145) mmol/L Potassium 6.0 H (3.5-5.1) mmol/L Chloride 88 L (98-107) mmol/L Carbon Dioxide 24 (22-29) mmol/L Anion Gap 20.0 H (5-19) BUN 68 H (8-23) mg/dL Creatinine 3.3 H (0.5-0.9) mg/dL Glucose 147 H (65-115) mg/dL Calculated Osmolal ity 264 L (285-295) mOsm/k g Calcium 11.5 H (8.5-10.5) mg/dL Magnesium 2.5 H (1.7-2.3) mg/dL Total Bilirubin 6.2 H (0.15-1.2) mg/dL AST 85 H (0-32) U/L ALT 45 H (0-33) U/L Alkaline Phosphata se 220 H (35-105) IU/L Ammonia (11-51) umol/L Total Protein 8.2 (6.6-8.7) g/dL Albumin 3.4 L (3.5-5.2) g/dL Globulin 4.8 H (1.3-4.6) g/dL Lipase 53 (13-60) U/L TSH 0.99 (0.27-4.20) uIU/ mL Urine Color (Yellow) Urine Appearance (CLEAR) Urine pH (5-7) Ur Specific Gravit y (1.005-1.030) Urine Protein (Negative) Urine Glucose (UA) (Normal) Urine Ketones (Negative) Urine Blood (Negative) Urine Nitrate (Negative) Urine Bilirubin (NEGATIVE) Urine Urobilinogen (Negative) mg/dL Ur Leukocyte Shaniqua ase (Negative) Urine RBC (0-2) /hpf Urine WBC (0-5) /hpf Ur Squamous Epith Cells (0-5) Urine Bacteria (NONE) 11/24/19 11/24/19 Range/Units 18:10 18:30 WBC (4.0-10.0) 10^3/ uL RBC (4.1-5.3) 10^6/u L Hgb (11.5-15.3) g/dL Hct (37.0-47.0) % MCV (81-99) fL MCH (28.0-34.0) pg MCHC (30.0-36.0) g/dL RDW (12.1-15.1) % Plt Count (130-400) 10^3/c mm MPV (7.4-10.4) fL Neut % (Auto) % Lymph % (Auto) % [place] % (Auto) % Eos % (Auto) % Baso % (Auto) % Neut # (Auto) (1.8-7.7) 10^3/u L Lymph # (Auto) (0.8-4.8) 10^3/u L [place] # (Auto) (0.2-0.9) 10^3/u L Eos # (Auto) (0.0-0.8) 10^3/u L Baso # (Auto) (0.0-0.1) 10^3/u L Nucleated RBC % (a uto) % Nucleated RBCs # /100WBC PT (10.5-13.3) SECO NDS INR (0.8-1.2) Sodium (136-145) mmol/L Potassium (3.5-5.1) mmol/L Chloride (98-107) mmol/L Carbon Dioxide (22-29) mmol/L Anion Gap (5-19) BUN (8-23) mg/dL Creatinine (0.5-0.9) mg/dL Glucose (65-115) mg/dL Calculated Osmolal ity (285-295) mOsm/k g Calcium (8.5-10.5) mg/dL Magnesium (1.7-2.3) mg/dL Total Bilirubin (0.15-1.2) mg/dL AST (0-32) U/L ALT (0-33) U/L Alkaline Phosphata se (35-105) IU/L Ammonia 21 (11-51) umol/L Total Protein (6.6-8.7) g/dL Albumin (3.5-5.2) g/dL Globulin (1.3-4.6) g/dL Lipase (13-60) U/L TSH (0.27-4.20) uIU/ mL Urine Color Yellow (Yellow) Urine Appearance Sl hazy (CLEAR) Urine pH 5 (5-7) Ur Specific Gravit y 1.005 (1.005-1.030) Urine Protein Neg (Negative) Urine Glucose (UA) Norm (Normal) Urine Ketones Negative (Negative) Urine Blood Neg (Negative) Urine Nitrate Negative (Negative) Urine Bilirubin Neg (NEGATIVE) Urine Urobilinogen Norm (Negative) mg/dL Ur Leukocyte Shaniqua ase Trace H (Negative) Urine RBC None (0-2) /hpf Urine WBC 10-15 H (0-5) /hpf Ur Squamous Epith Cells 10-15 H (0-5) Urine Bacteria 2+ H (NONE) Imaging Data^: CXR: Attestation: I personally reviewed and interpreted this imaging study as follows: My impression: no acute abnormality EKG Data^: EKG 1: Attestation: I personally reviewed and interpreted this EKG as follows: EKG interpretation date: 11/24/19 EKG interpretation time: 19:19 Interpretation: nsr hr [address] or t wave abnormalities qrs 101 qtc 417 Discharge Plan Discharge Patient Disposition: Admitted As Inpatient Clinical Impression: Generalized weakness, Acute kidney injury, Cirrhosis Condition: Stable Referrals: Delvis Ortiz DO [Primary Care Provider] - Coding Level of Care Code ED Fitness Professional for Chg Fwd Exam Comprehensive
[2019-11-24 18:01] VITALS: BP 117/50; PULSE 65; RESP 18; TEMP 36.5; O2SAT 97
[2019-11-24 18:31] LABS: Basophils % 0.2 %; Eosinophils # 0.1 10^3/uL (0.0-0.8); Eosinophils % 1.1 %; Hematocrit 33.6 % (37.0-47.0); Hemoglobin 11.3 g/dL (11.5-15.3); Lymphocytes % 15.4 %; Mean Corpuscular HGB Conc 33.6 g/dL (30.0-36.0); Mean Corpuscular Hemoglobin 35.1 pg (28.0-34.0); Mean Corpuscular Volume 104.3 fL (81-99); Mean Platelet Volume 11.6 fL (7.4-10.4); Monocytes # 1.4 10^3/uL (0.2-0.9); Monocytes % 10.5 %; Neutrophils # 9.4 10^3/uL (1.8-7.7); Neutrophils % 72.4 %; Nucleated Red Blood Cells % 0 %; Platelet Count 77 10^3/cmm (130-400); Red Blood Count 3.22 10^6/uL (4.1-5.3); Red Cell Distribution Width 16.8 % (12.1-15.1)
--- NOTE | 2019-11-24 18:32 | ECG_ITS ---
Measurements Intervals [place] Rate: 61 P: 61 NV: 251 QRS: -4 QRSD: 101 T: 42 QT: 414 QTc: 419 SINUS RHYTHM WITH FIRST DEGREE AV BLOCK LOW QRS VOLTAGE IN PRECORDIAL LEADS [QRS DEFLECTION < 1.0 mV IN CHEST LEADS] Compared to ECG 10/23/2019 20:13:30 Myocardial infarct finding no longer present Electronically Signed On 11-25-2019 10:35:40 CDT by Elin Hoyt M.D. [email or web address]
[2019-11-24 18:48] LABS: Ammonia 21 umol/L (11-51)
[2019-11-24 19:04] LABS: Alanine Aminotransferase 45 U/L (0-33); Albumin Level 3.4 g/dL (3.5-5.2); Alkaline Phosphatase 220 IU/L (35-105); Aspartate Amino Transferase 85 U/L (0-32); Blood Urea Nitrogen 68 mg/dL (8-23); Calcium 11.5 mg/dL (8.5-10.5); Carbon Dioxide 24 mmol/L (22-29); Chloride 88 mmol/L (98-107); Globulin 4.8 g/dL (1.3-4.6); Glucose 147 mg/dL (65-115); Lipase 53 U/L (13-60); Magnesium 2.5 mg/dL (1.7-2.3); Osmolality Calculated 264 mOsm/kg (285-295); Sodium 126 mmol/L (136-145); Thyroid Stimulating Hormone 0.99 uIU/mL (0.27-4.20); Total Bilirubin 6.2 mg/dL (0.15-1.2); Total Protein 8.2 g/dL (6.6-8.7)
--- NOTE | 2019-11-24 19:12 | US_ITS ---
WS: [id number] RIGHT UPPER QUADRANT ULTRASOUND HISTORY: abd pain COMPARISON: 10/27/2019 Liver: 11.7 cm in length. Small liver is cirrhotic. Poorly visualized liver but no mass identified. Gallbladder: Not identified. May been surgically removed. CBD: 0.4 cm Pancreas: Pancreas is poorly visualized. There is a fluid collection near the pancreatic head which m ay be some ascites. Collection measures 3.0 x 3.5 x 2.8 cm. Not a typical measurement for dilated com mon bile duct. Right kidney: 8.7 cm in length. Poorly visualized kidney. Cortical atrophy. No hydronephrosis. Aorta and IVC: Unremarkable. No significant amount of ascites identified. US/US gall bladder [id number] IMPRESSION: 1. Technically very limited evaluation of the RIGHT upper quadrant. 2. Marked cirrhosis. 3. Abnormal fluid or hypoechoic mass near the pancreatic head. Could be an abn ormal lymph node or fluid collection such as pseudocyst. 4. Poorly visualized RIGHT kidney. Nonvisualized pancreas.
[2019-11-24 19:16] LABS: INR 1.29 (0.8-1.2)
[2019-11-24] MEDS: sodium chloride 0.9% 1,000 ML 999 ML IV (19:16)
[2019-11-24 19:27] LABS: Urine Appearance SL Hazy (CLEAR); Urine Color Yellow (Yellow)
[2019-11-24 19:28] LABS: Add Urine Culture? Yes; Add Urine Microscopic? YES; Bacteria Urine 2+; Bilirubin Urine Neg (NEGATIVE); Blood Urine Neg (Negative); Glucose Urine UA Norm (Normal); Ketones Urine Negative (Negative); Leukocyte Esterase Urine Trace (Negative); Nitrate Urine Negative (Negative); Protein Urine Neg (Negative); Specific Gravity, Urine 1.005 (1.005-1.030); Urobilinogen Urine Norm (Negative); pH Urine 5 (5-7)
[2019-11-24 19:50] VITALS: BP 118/50; PULSE 59; RESP 18; O2SAT 98
[2019-11-24 20:37] VITALS: BP 123/56; PULSE 59; RESP 18; O2SAT 96
--- NOTE | 2019-11-24 20:58 | CTR_ITS ---
PROCEDURE INFORMATION: Exam: CT Abdomen And Pelvis Without Contrast Exam date and time: 11/24/2019 9:00 PM Age: 84 years old Clinical indication: Abdominal pain; Prior surgery; Additional info: Sbp vs ascending cholitis TECHNIQUE: Imaging protocol: Computed tomography of the abdomen and pelvis without contrast. Total DLP: 1161.13 mGy-cm Radiation optimization: All CT scans at this facility use at least one of these dose optimization techniques: automated exposure control; mA and/or kV adjustment per patient size (includes targeted exams where dose is matched to clinical indication); or iterative reconstruction. COMPARISON: CT abdomen pelvis w con* [id number] 08/31/2019 10:42 AM FINDINGS: Lungs: Limited assessment lung bases reveals dependent atelectasis. Cardiomegaly. Scant right pleural effusion. Liver: Cirrhosis of the liver with portal venous hypertension. Hepatic calcified granulomas. Gallbladder and bile ducts: Gallbladder not visualized and presumed surgically absent. Pancreas: Atrophic pancreas. No visible pancreatic ductal ectasia. Spleen: Splenomegaly. Calcified splenic granulomas. Adrenals: Adrenal glands unremarkable. Kidneys and ureters: Kidneys without hydronephrosis or perinephric fluid. Stomach and bowel: Nonobstructive bowel pattern. No visible evidence for diverticulitis. No evidence for adynamic or reactive ileus. No findings suggest the presence of acute inflammatory or infectious colitis. Appendix: No evidence of appendicitis. Intraperitoneal space: Moderate volume perihepatic ascites. No significant generalized intraperitoneal ascites. Vasculature: Portal hypertension with paraesophageal, gastric, rica hepatis, perisplenic varices. The abdominal aorta is nonaneurysmal. Moderate arterial sclerotic disease. Lymph nodes: [place] hepatis lymphadenopathy the largest measuring 43 mm x 30 mm x 37 mm. Other less prominent rica hepatis nodes and also within the pericaval retroperitoneal space. Second dominant lymph node measures 21 mm. This finding represents a significant change since 08/31/2019. Bladder: Urinary bladder unremarkable. Reproductive: Unremarkable as visualized. Bones/joints: Advanced degenerative disease and degenerative disc disease of the spine with discogenic sclerosis and spondylosis deformans. Vacuum disc phenomenon. Levoscoliosis. No visible osteolytic or osteoblastic destructive process. Soft tissues: Small umbilical hernia containing fat only. Other findings: Obesity. CT/CT abdomen pelvis wo con [id number] IMPRESSION: 1. [place] hepatis and pericaval lymphadenopathy the largest anastasiya mass measuring 43 mm x 30 mm x 37 mm. 2. Cirrhosis with portal venous hypertension. 3. Perihepatic ascites. 4. Splenomegaly. 5. Currently no visible active or acute hollow viscus pathology. 6. Other nonurgent, nonemergent, chronic, and age related findings as detailed in text above. Radiation Dose CTDIVOL = (mGy): DLP = 1161.13 (mGy-cm)
[2019-11-24 21:48] LABS: Procalcitonin 0.28 ng/mL (0-0.5)
--- NOTE | 2019-11-24 21:51 | CTR_ITS ---
PROCEDURE INFORMATION: Exam: CT Thoracic Spine Without Contrast Exam date and time: 11/24/2019 9:52 PM Age: 84 years old Clinical indication: Injury or trauma; Fall; Initial encounter; Blunt trauma (contusions or hematomas); Injury date: X2 weeks TECHNIQUE: Imaging protocol: Computed tomography images of the thoracic spine without contrast. Total DLP: 2177.56 mGy-cm Radiation optimization: All CT scans at this facility use at least one of these dose optimization techniques: automated exposure control; mA and/or kV adjustment per patient size (includes targeted exams where dose is matched to clinical indication); or iterative reconstruction. COMPARISON: No relevant prior studies available. FINDINGS: Vertebrae: No visible acute fracture, subluxation, or dislocation. Advanced degenerative disease and degenerative disc disease with spondylosis deformans . Spondylosis deformans. Facet arthrosis. Mild scoliosis. Discs/Spinal canal/Neural foramina: Right paramedian for focal annular disc bulge osteophyte complex T12/L1 with right neural foraminal stenosis. Other bones/joints: Osteoporosis. Soft tissues: Obesity. Lungs: Limited assessment lungs reveals antecedent granulomatous disease. Age related findings. CT/CT thoracic spin wo con* [id number] IMPRESSION: No visible acute fracture, subluxation, or dislocation. Radiation Dose CTDIVOL = (mGy): DLP = 2177.56 (mGy-cm)
--- NOTE | 2019-11-24 21:51 | CTR_ITS ---
PROCEDURE INFORMATION: Exam: CT Lumbar Spine Without Contrast Exam date and time: 11/24/2019 9:52 PM Age: 84 years old Clinical indication: Injury or trauma; Fall; Initial encounter; Blunt trauma (contusions or hematomas); Injury date: X2 weeks TECHNIQUE: Imaging protocol: Computed tomography images of the lumbar spine without contrast. Total DLP: 1921.84 mGy-cm Radiation optimization: All CT scans at this facility use at least one of these dose optimization techniques: automated exposure control; mA and/or kV adjustment per patient size (includes targeted exams where dose is matched to clinical indication); or iterative reconstruction. COMPARISON: No relevant prior studies available. FINDINGS: Vertebrae: No visible acute fracture, subluxation, or dislocation. Discs/Spinal canal/Neural foramina: Advanced degenerative disease and degenerative disc disease with disc space height loss, vacuum disc phenomenon, and spondylosis deformans. Levoscoliosis. Facet arthrosis. Chronic sacroiliitis. Right paramedian focal annular disc bulge osteophyte complex T12/L1 with right neural foraminal stenosis. Mild central canal stenosis L2/L3 due to posterior disc bulge osteophyte complex with ligamentum flavum hypertrophy and facet arthrosis. Bilateral neural foraminal stenosis L4/L5. Left neural foraminal stenosis L5/S1. Soft tissues: Obesity. CT/CT lumbar spine wo con* [id number] IMPRESSION: No visible acute fracture, subluxation, or dislocation. Radiation Dose CTDIVOL = (mGy): DLP = 1921.84 (mGy-cm)
--- NOTE | 2019-11-24 21:51 | CTR_ITS ---
PROCEDURE INFORMATION: Exam: CT Cervical Spine Without Contrast Exam date and time: 11/24/2019 9:52 PM Age: 84 years old Clinical indication: Injury or trauma; Fall; Initial encounter; Blunt trauma; Injury date: X 2 weeks TECHNIQUE: Imaging protocol: Computed tomography images of the cervical spine without contrast. Total DLP: 925.25 mGy-cm Radiation optimization: All CT scans at this facility use at least one of these dose optimization techniques: automated exposure control; mA and/or kV adjustment per patient size (includes targeted exams where dose is matched to clinical indication); or iterative reconstruction. COMPARISON: No relevant prior studies available. FINDINGS: Vertebrae: No visible fracture, subluxation, or dislocation. Reversal normal cervical lordosis. Discs/Spinal canal/Neural foramina: Facet arthrosis. Right neural foraminal stenosis C2/C3. Bilateral neural foraminal stenosis C3/C4, C4/C5, C5/C6, C6/C7, and to a less significant degree C7/T1. Soft tissues: Unremarkable. Trachea: Advanced degenerative disease and degenerative disc disease with spondylosis deformans. Disc space height loss and advanced degenerative disc disease C3 through T1. Thyroid: Multinodular thyroid goiter. Largest nodule less than 10 mm. Lungs: See Thyroid finding. CT/CT cervical spin wo con* [id number] IMPRESSION: 1. No visible fracture, subluxation, or dislocation. 2. Advanced degenerative disease and degenerative disc disease with spondylosis deformans. 3. Mild multinodular thyroid goiter.No follow-up is recommended. COMMENTS: Consistent with the [employer]'s Incidental Findings Committee white paper (J Am Bear Radiol 2015): In patients aged 35 years and older with an incidental thyroid nodule equal to or greater than 1.[address], MRI or extrathyroidal US, further evaluation with dedicated thyroid US is recommended for patients with normal life expectancy and without comorbidities. For smaller nodules without suspicious features, no further evaluation or follow up is recommended. Radiation Dose CTDIVOL = (mGy): DLP = 925.25 (mGy-cm)
[2019-11-24 21:59] LABS: C Reactive Protein 32.7 mg/L (0.0-4.9)
--- NOTE | 2019-11-24 22:15 | PM.HP ---
Providers/Chief Complaint Primary Care Provider: Delvis Ortiz DO Chief Complaint: GENERALIZED WEAKNESS History of Present Illness Sheila Magaña is a 84 year old female is an extremely pleasant 84-year-old female who comes from 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 History was obtained from the patient, history was obtained from the long-term. According to the long-term, patient at baseline is alert oriented x3, and can ambulate on her own, is quite independent, she did have a fall last Saturday, when she slipped off the commode, no head trauma, this morning, she had episodes of alterations of her mentation, was confused, looked more jaundiced, could not feed herself, was more lethargic, work-up in the long-term showed a sodium of 129, potassium of 5.9, bili of 5.9, white blood cell count of 18.9, no fevers, no recent history of UTIs, no recent respiratory complaints, did not require any oxygen, no complaints of abdominal pain. Patient was examined in the emergency room, patient was alert oriented x2, states that she was originally from the , moved here to [place] with her , she is been for more than 20 years, she has a niece who has a [employer] business here in [place], her complaint today is that she has neck pain after her fall, back pain after her fall, at times she is confused, at times she has difficulty answering questions, she has complaints of abdominal pain, no fevers, no chills, no cough, no lightheadedness, no dizziness, no chest pain, no dysuria, no hematuria, states that she has Parsons, stated that she is not a candidate for liver transplant, states that she does not have an appetite, she would like to try something this evening, no headaches, no blurry vision, no focal neurologic deficits, no slurring of her speech, no facial droop, has more generalized weakness, states that she just feels too weak to stand, she states that at the long-term for the last few days she is been having increased swelling of her bilateral lower extremities, she has been on Lasix therapy, states that swelling has improved, she stated that she fell about a week ago, slid off the commode, no head trauma chondroma no loss of consciousness, but since then, her neck has been hurting her and her lower back has been hurting her Review of Systems Const: Denies: fever, chills, fatigue or malaise Eyes: Denies: change in vision or blurry vision ENMT: Denies: nasal congestion Resp: Denies: shortness of breath, productive cough, non-productive cough or wheezing GI: Reports: abdominal pain; Denies: nausea, vomiting, vomiting blood, diarrhea, constipation, blood in stool or black tarry stool : Denies: flank pain, painful urination or urinary frequency Musc: Reports: neck pain and back pain Skin/Breast: Denies: rash Neuro: Denies: headache, dizziness or vertigo Psych: Denies: anxiety or depression Endo: Denies: excessive urination or excessive thirst Medications/Allergies Allergies Allergy/AdvReac Type Severity Reaction Status Date / Time No Known Allergies Allergy Verified 11/24/19 18:05 Additional Medication Information Additional Medication Information: Lactulose 20 g twice daily Protonix 40 mg twice daily Potassium chloride 10 mEq once daily meclizine 25 mg 1 tablet twice daily as needed duloxetine 30 mg 1 tablet daily, atenolol 25 mg once daily, Lasix 80 mg twice daily vitamin D3 Dulcolax milk of magnesia Xifaxan 550 mg twice a day, Metamucil, PFSH Acute PFSH: Medical History Acute on chronic diastolic (congestive) heart failure The EKG revealed sinus rhythm with poor R wave progression. No acute ST-T changes Ascites Cirrhosis of liver with ascites -with noted generalized anasarca -complicated by portal hypertension and varices -has some noted abdominal distention, noted to have small to moderate ascites on abdomen US -on oral Lasix; added Aldactone to optimize diuresis -etiology of liver cirrhosis likely PARSONS as non-smoker and no EtOH abuse hx -f/u with Dr. Powers; had recent escalation of diuretics secondary to increased LE weeping edema (Lasix + Metolazone) -daily weights, Is & Os -noted LFTs, overall trending down. Hepatitis panel negative -on ceftriaxone for SBP ppx -continue lactulose, rifaximin -resumed Atenolol Diabetes Fibromyalgia GERD (gastroesophageal reflux disease) Heart murmur, systolic Hyperlipidemia Hypertension Localized swelling of both lower legs Narcolepsy Osteoarthritis Sleep apnea Vitamin B12 deficiency Vitamin D deficiency Surgical History History of appendectomy History of cataract surgery Hx of cholecystectomy Family History Father Cancer Denies family history of Clotting disorder Chronic kidney disease (CKD) Social History Smoking and tobacco status: never smoked Quit status (tobacco): has quit using tobacco Former quit date comment: She quit smoking when she was young Alcohol intake: never Marital status: History of recent travel: No Current gender identity: Female Vitals/I&O/Wt Last Vital Signs Temp 97.7 F 11/24/19 18:01 Pulse 59 L 11/24/19 20:37 Resp 18 11/24/19 20:37 BP 123/56 11/24/19 20:37 Pulse Ox 96 11/24/19 20:37 11/24/19 11/24/19 11/24/19 06:59 14:59 22:59 Intake Total 1000 / 1000 Balance 1000 / 1000 Weight last 48 hrs Weight 127.459 kg Physical Exam Narrative: EXAM NARRATIVE: Jaundiced appearing Const: COMMON NORMALS: no apparent distress and oriented x3 GENERAL APPEARANCE: cooperative and comfortable HENMT: COMMON NORMALS: normocephalic HEAD & SCALP: normocephalic Eye: COMMON NORMALS: PERRL, EOMs intact bilaterally and no papilledema GENERAL EYE: normal appearance of both eyes PUPIL: Yes PERRL DIRECT OPHTHALMOSCOPY: Yes no papilledema OTHER: Has chronic ptosis of left eye Neck/C-Spine: COMMON NORMALS: full ROM, no lymphadenopathy, no JVD and thyroid normal THYROID: thyroid normal Lymph: LYMPHATIC: no lymphadenopathy noted Resp: COMMON NORMALS: normal respiratory effort, no retractions, no use of accessory muscles and clear to auscultation bilaterally AUSCULTATION: clear to auscultation bilaterally Cardio: COMMON NORMALS: no JVD, regular rate, regular rhythm, S1 normal heart sound, S2 normal heart sound, no gallops, no clicks and no murmurs RATE: regular rate RHYTHM: regular rhythm HEART SOUNDS: S1 normal and S2 normal GI: COMMON NORMALS: normal to inspection, nondistended, normoactive bowel sounds, soft to palpation and no hepatosplenomegaly PALPATION: Yes soft, Yes tender and Yes no hepatosplenomegaly Extremity: COMMON NORMALS: normal to inspection and full ROM NARRATIVE EXTREMITY EXAM: 1+ nonpitting edema Neuro: COMMON NORMALS: oriented x3, CN's II-XII intact bilaterally, moves all extremities and no focal motor deficits Psych: COMMON NORMALS: mental status grossly normal, thought process normal and cooperative THOUGHT PROCESS: normal thought process Data : 11/24/19 18:10 11/24/19 18:10 A&P Assessment and plan (1) Altered mental status: -Possibly secondary to spontaneous bacterial peritonitis and/or hyponatremia -Ammonia levels 21 -Neurochecks every 4 hours, seizure precautions Status: Acute (2) SBP (spontaneous bacterial peritonitis): -Altered mental status, white blood cell count 13, elevated T bili at 6.2, transaminitis, CRP 32.7, pro-Ray 0.28, visible jaundice, complaints of abdominal pain, abdominal distention -CT scan shows perihepatic ascites -Gallbladder ultrasound does not show significant amount ascites -I discussed the case with Dr. Butt, she will come in tomorrow and reviewed scans for consideration for possible paracentesis, also as below we will discuss possibility of a liver biopsy Plan: -We do not have cefotaxime, start ceftriaxone 2 g daily -Albumin 1.5 g/kg on day 1, started by 1.5 g/kg on day 3 -Follow-up paracentesis cultures and results if possible -Monitor fevers, monitor mentation, Status: Acute (3) Hyponatremia: -Serum sodium 126, likely secondary to diuretic therapy Plan: -Neurochecks, seizure precautions -Hold diuretic therapy -Fluid restrictions to 1500 cc Status: Acute (4) Acute kidney injury: -Creatinine 3.3 - baseline 1.4 -Likely prerenal secondary to diuretic therapy Plan: -Hold diuresis -Given bilateral lower extremity edema, and diastolic heart failure, will hold off on fluid challenge, monitor creatinine Status: Acute (5) Fall: -Fall a week ago followed with neck pain which is persistent, lower back pain Plan: -We will order CT head, CT neck, CT thoracic and lumbar spine Status: Acute (6) Cirrhosis of liver with ascites: -CT scan today shows liver cirrhosis with portal hypertension -I am concerned as CT scan also shows new angelika hepatis and monica-caval lymphadenopathy, largest anastasiya mass measuring 43 x 30 x 37 mm, I worried about possible progression to hepatocellular carcinoma, I have ordered an AFP, will also discussed with Dr. Butt tomorrow about consideration of a liver biopsy -Patient's AST is 85, ALT 45, ammonia 21, albumin 3.4, INR 1.29, platelet count 77 -Patient's T bili is 6.2, she is visibly jaundiced, she is status post cholecystectomy, CT scan does not show any bile duct stones, lipase within normal limits, mild transaminitis; there is a possibility of acute ascending cholangitis, however I think it is unlikely, but will continue to monitor bili, liver function, mental status, monitor for fevers Status: Chronic Qualifiers: Hepatic cirrhosis type: unspecified hepatic cirrhosis Qualified Code(s): K74.60 - Unspecified cirrhosis of liver; R18.8 - Other ascites (7) Localized swelling of both lower legs: Hold off on Lasix, hold off on fluid therapy Status: Acute (8) Hyperlipidemia: Status: Acute Qualifiers: Hyperlipidemia type: mixed hyperlipidemia Qualified Code(s): E78.2 - Mixed hyperlipidemia (9) Hypertension: Status: Acute Qualifiers: Hypertension type: essential hypertension Qualified Code(s): I10 - Essential (primary) hypertension (10) Thrombocytopenia: Later to liver cirrhosis Status: Acute (11) Diastolic CHF: Not in acute exacerbation Status: Acute Attestations Medical Necessity Statement*: She requires hospitalization, inpatient, greater than 2 midnights, altered mental status related to SBP, hyponatremia, MARK Coding Level of Care Code Acute Incising Machine Operator for Chg Fwd Diagnoses Altered mental status R41.82 SBP (spontaneous bacterial peritonitis) K65.2 Hyponatremia E87.1 Acute kidney injury N17.9 Fall W19.XXXA Cirrhosis of liver with ascites K74.60; R18.8 Hepatic cirrhosis type: unspecified hepatic cirrhosis Localized swelling of both lower legs R22.43 Hyperlipidemia E78.2 Hyperlipidemia type: mixed hyperlipidemia Hypertension I10 Hypertension type: essential hypertension Thrombocytopenia D69.6 Diastolic CHF I50.30
[2019-11-24 22:22] LABS: Erythrocyte Sedimentation Rate 59 mm/hr (0-15)
[2019-11-24 22:58] VITALS: BP 132/55; PULSE 56; RESP 16; TEMP 36.4; O2SAT 98
[2019-11-24 22:59] VITALS: BP 144/57; PULSE 59; RESP 18; O2SAT 99
[2019-11-25] VITALS (10 sets, daily range): BP systolic 102–125; BP diastolic 49–66; PULSE 62–76; RESP 16–24; TEMP 36.4–36.8; O2SAT 92–100
[2019-11-25 00:16] LABS: NT Pro B Type Natriuretic Pept 586 pg/mL (0-450)
[2019-11-25 00:21] LABS: Tumor Marker Alpha Fetoprotein 9.1 ng/mL (0-8.3)
[2019-11-25 00:44] LABS: Total Bilirubin 5.4 mg/dL (0.15-1.2)
[2019-11-25] MEDS: albumin 12.5 gm/50 mL IV IV (01:14)
[2019-11-25 01:47] LABS: Bacteria Urine TRACE; Bilirubin Urine Neg (NEGATIVE); Blood Urine Trace (Negative); Glucose Urine UA Norm (Normal); Ketones Urine Negative (Negative); Leukocyte Esterase Urine Negative (Negative); Nitrate Urine Negative (Negative); Protein Urine Neg (Negative); RBC Urine 0-4 /hpf (0-2); Squamous Epithelial Cell Urine 0-4 (0-5); Urine Appearance Clear (CLEAR); Urine Color Yellow (Yellow); Urobilinogen Urine Norm (Negative); WBC Urine 0-4 /hpf (0-5); pH Urine 5 (5-7)
[2019-11-25 06:07] LABS: Basophils % 0.3 %; Eosinophils # 0.2 10^3/uL (0.0-0.8); Eosinophils % 1.5 %; Hematocrit 30.9 % (37.0-47.0); Hemoglobin 10.2 g/dL (11.5-15.3); Lymphocytes # 1.6 10^3/uL (0.8-4.8); Lymphocytes % 16.3 %; Mean Corpuscular Hemoglobin 34.5 pg (28.0-34.0); Mean Corpuscular Volume 104.4 fL (81-99); Mean Platelet Volume 11.6 fL (7.4-10.4); Monocytes % 9.9 %; Neutrophils # 7.1 10^3/uL (1.8-7.7); Neutrophils % 71.7 %; Nucleated Red Blood Cells % 0 %; Platelet Count 68 10^3/cmm (130-400); Red Blood Count 2.96 10^6/uL (4.1-5.3); Red Cell Distribution Width 16.8 % (12.1-15.1); White Blood Count 9.9 10^3/uL (4.0-10.0)
[2019-11-25 06:25] LABS: Alanine Aminotransferase 37 U/L (0-33); Alkaline Phosphatase 201 IU/L (35-105); Anion Gap 19.4 (5-19); Aspartate Amino Transferase 70 U/L (0-32); Blood Urea Nitrogen 63 mg/dL (8-23); Calcium 11.6 mg/dL (8.5-10.5); Carbon Dioxide 24 mmol/L (22-29); Chloride 92 mmol/L (98-107); Globulin 4.3 g/dL (1.3-4.6); Glucose 103 mg/dL (65-115); Magnesium 2.4 mg/dL (1.7-2.3); Osmolality Calculated 269 mOsm/kg (285-295); Phosphorus 3.8 mg/dL (2.5-4.5); Potassium 5.4 mmol/L (3.5-5.1); Sodium 130 mmol/L (136-145); Total Bilirubin 6.2 mg/dL (0.15-1.2); Total Protein 8.3 g/dL (6.6-8.7)
[2019-11-25 06:29] LABS: Estmated Average Glucose 85; Hemoglobin A1C 4.6 % (4.0-6.0)
[2019-11-25] MEDS: cholecalciferol (vitamin D3) 1,000 unit Tablet 2000 UNIT PO (08:18)
[2019-11-25] MEDS: duloxetine 30 mg Capsule PO (08:18)
[2019-11-25] MEDS: pantoprazole DR 40 mg Tablet PO ×2 (08:18→17:47)
[2019-11-25] MEDS: lactulose oral liq 20 gm/30 mL UDC 10 GM PO ×2 (08:19→17:47)
[2019-11-25] MEDS: cefTRIAXone 2,000 MG in sodium chloride 0.9% (plus) 50 ML 100 MG IV (08:23)
--- NOTE | 2019-11-25 09:25 | PC.NURSE ---
Report to Sandeep GARCIA. Patient's lungs are clear. 5 bags of Albumin given per pharmacy.
--- NOTE | 2019-11-25 09:41 | P.PN_ITS ---
Subjective Subjective: Interval history: History and physical was reviewed. Patient without significant complaints this morning. She is not for sure why she is here. I discussed with her the nursing facility was worried she had more confusion. Patient denies any nausea, vomiting, abdominal pain. Reports her niece helps her make medical decisions. Medications: Reviewed: Yes Vitals/I&O/Wt Last Vital Signs Temp 98.1 F 11/25/19 07:25 Pulse 64 11/25/19 07:25 Resp 17 11/25/19 07:25 BP 104/62 11/25/19 07:25 Pulse Ox 97 11/25/19 07:25 11/24/19 11/25/19 11/25/19 22:59 06:59 14:59 Intake Total 1000 / 1000 0 / 1000 Output Total 580 / 580 Balance 1000 / 1000 -580 / 420 Weight last 48 hrs Weight 127.459 kg Physical Exam Narrative: EXAM NARRATIVE: General exam is a jaundiced white female, obese, in no apparent distress Cardiovascular regular rate and rhythm without murmur Lungs clear Abdomen is soft nontender, no evidence of fluid wave, positive bowel sounds Extremities 1+ edema, pitting. No cyanosis or clubbing Urinary Catheter Management^: Anne: Cath Placed During This Visit: yes Reason for Continuing Indwelling Catheter: Accurate Measurement of Urinary Output in Critically Ill Patients Urinary Catheter Date of Insertion: 11/25/19 Urinary Catheter Time of Insertion: 01:01 Data : 11/25/19 05:06 11/25/19 05:06 A&P Assessment and plan (1) Altered mental status: Most likely encephalopathy, secondary to renal failure. Multiple concomitant illnesses as well as patient's underlying hyponatremia, liver failure may play a role as well although ammonia level was normal. Status: Acute (2) SBP (spontaneous bacterial peritonitis): Very small amount of ascites noted just around the liver. Patient denies any abdominal pain currently. No fever. White blood cell count slightly elevated on admission, but normal now. Placed on ceftriaxone on admission, and given albumin. Discontinue albumin for now. No paracentesis is planned currently. Status: Acute (3) Hyponatremia: Sodium with slight improvement. May be secondary to renal failure, along with cirrhosis. Hold diuretics After evaluation of overall volume status I initiated a small amount of saline IV fluids. Recheck BMP later this afternoon. Status: Acute (4) Acute kidney injury: Likely secondary to diuretics. Hold diuretics Small amount of IV fluids Status: Acute (5) Fall: Fall a week ago followed with neck pain which is persistent, lower back pain Plan: No evidence of fracture on multiple x-rays Status: Acute (6) Cirrhosis of liver with ascites: Very minor amount of ascites, only around the liver. Enlarging lymph nodes noted around the liver. Alpha-fetoprotein slightly elevated. MRCP ordered. Check CA-19-9, CEA level Await MRCP, prior to deciding about any biopsy Monitor liver function tests closely. Concerned she may have an obstructive pattern. Status: Chronic Qualifiers: Hepatic cirrhosis type: unspecified hepatic cirrhosis Qualified Code(s): K74.60 - Unspecified cirrhosis of liver; R18.8 - Other ascites (7) Localized swelling of both lower legs: Hold diuresis. Status: Acute (8) Hyperlipidemia: Status: Acute Qualifiers: Hyperlipidemia type: mixed hyperlipidemia Qualified Code(s): E78.2 - Mixed hyperlipidemia (9) Hypertension: Hold atenolol. Patient borderline hypotensive Status: Acute Qualifiers: Hypertension type: essential hypertension Qualified Code(s): I10 - Essential (primary) hypertension (10) Thrombocytopenia: Secondary to cirrhosis Status: Acute (11) Diastolic CHF: Not in acute exacerbation Status: Acute Additional A&P Information Hypercalcemia. May be secondary to intravascular volume depletion but malignancy would be another concern. Follow closely. Hyperkalemia. May have been secondary to renal failure, Aldactone, potassium. Diuretics being held and potassium discontinued. Recheck BMP at 1600 History of hepatic encephalopathy. Currently on lactulose and rifaximin Radiographic evidence of varices Anemia, likely secondary to cirrhosis Past history of chronic kidney disease, now with acute kidney injury Type 2 diabetes, diet controlled Obesity Multiple other medical problems as outlined in past medical history. Limited code SCDs for DVT prophylaxis secondary to thrombocytopenia Attestations Medical Necessity Statement*: Needs continued hospitalization, for further evaluation of obstructive pattern of liver function tests, acute renal failure Coding Level of Care Code Acute Cloud Engagement Partner for Chg Fwd Diagnoses Altered mental status R41.82 SBP (spontaneous bacterial peritonitis) K65.2 Hyponatremia E87.1 Acute kidney injury N17.9 Fall W19.XXXA Cirrhosis of liver with ascites K74.60; R18.8 Hepatic cirrhosis type: unspecified hepatic cirrhosis Localized swelling of both lower legs R22.43 Hyperlipidemia E78.2 Hyperlipidemia type: mixed hyperlipidemia Hypertension I10 Hypertension type: essential hypertension Thrombocytopenia D69.6 Diastolic CHF I50.30
[2019-11-25] MEDS: sodium chloride 0.9% 1,000 ML 50 ML IV (10:10)
--- NOTE | 2019-11-25 10:54 | PC.CHAP ---
Pastoral Care Encounter/Spiritual Assessment Type of Contact [] Declined sprinkler helper visit [] Patient/Family/Request visit [] Outpatient visit [] Follow-up visit [] Physician referral [] Code/Alert [x] Routine visit [] Staff referral [] Actively dying [] Patient sleeping [] Family support [] [] Out of room [] Palliative care [] [] Receiving care in room [] Pre-surgical visit [] Trauma [] Long length of stay [] ICU visit [] Other: Relational/Emotional Strength [] Patient feels connected with others/family/visitors/staff [] Distress [] Loneliness/isolation [] Abandonment Spirituality of Patient [] Person of Argenis [] Attends Christian of their Argenis [x] Believes in Prayer [] Reads Bible or Episcopal materials [] There are Spiritual issues to be addressed Invasive Cardiologist Interventions [x] Prayer [] Active listening [] Non-anxious presence [] Spiritual/emotional support [] Crisis/trauma care [] Spiritual counseling [] Bereavement support [] Provided bereavement packet [] Provided Bible/devotional materials [] Provided toy/stuffed animal, coloring book to patient or family member [] Provided Communion [] Anointing/[place] [] Salvation [x] Completed spiritual assessment [] Other: Impact on Illness or Injury [] Angry [] Fearful [] Anxious [] Often cries [] Exhaustion [] Unable to work [] Unable to attend taoist [] Unable to walk/stand [] Unable to read [] Unable to drive [] Unable to eat/drink [] Unable to sleep [] Unable to be with family [] Patient intubated [] Other: Summary Patient feeling weak... when picking up glass of water, hands shake. Patient just want to know the cause of weakness, and she will address (she states) Time spent with patient 15min
[2019-11-25 11:35] LABS: Carcinoembryonic Antigen 7.7 ng/mL (0.0-4.7)
[2019-11-25 12:29] LABS: Cancer Antigen 19 9 30.91 U/mL (0-35)
--- NOTE | 2019-11-25 15:54 | PC.NURSE ---
PATIENT TAKEN BY NATALIE MATHIS TO MRCP AT [facility]
[2019-11-25 19:16] LABS: Blood Urea Nitrogen 70 mg/dL (8-23); Calcium 10.8 mg/dL (8.5-10.5); Carbon Dioxide 21 mmol/L (22-29); Chloride 94 mmol/L (98-107); Glucose 136 mg/dL (65-115); Osmolality Calculated 273 mOsm/kg (285-295); Sodium 131 mmol/L (136-145)
[2019-11-26] VITALS (7 sets, daily range): BP systolic 97–124; BP diastolic 50–69; PULSE 62–70; RESP 16–24; TEMP 36.5–36.9; O2SAT 95–100
[2019-11-26 05:26] LABS: Basophils % 0.2 %; Eosinophils # 0.1 10^3/uL (0.0-0.8); Eosinophils % 1.2 %; Hematocrit 29.3 % (37.0-47.0); Hemoglobin 9.6 g/dL (11.5-15.3); Lymphocytes # 0.9 10^3/uL (0.8-4.8); Lymphocytes % 11.3 %; Mean Corpuscular HGB Conc 32.8 g/dL (30.0-36.0); Mean Corpuscular Hemoglobin 35.4 pg (28.0-34.0); Mean Corpuscular Volume 108.1 fL (81-99); Mean Platelet Volume 12.1 fL (7.4-10.4); Monocytes # 0.9 10^3/uL (0.2-0.9); Monocytes % 10.5 %; Neutrophils # 6.3 10^3/uL (1.8-7.7); Neutrophils % 76.3 %; Nucleated Red Blood Cells % 0 %; Platelet Count 60 10^3/cmm (130-400); Red Blood Count 2.71 10^6/uL (4.1-5.3); White Blood Count 8.3 10^3/uL (4.0-10.0)
[2019-11-26 05:48] LABS: Alanine Aminotransferase 33 U/L (0-33); Albumin Level 3.5 g/dL (3.5-5.2); Alkaline Phosphatase 188 IU/L (35-105); Anion Gap 20.9 (5-19); Blood Urea Nitrogen 60 mg/dL (8-23); Calcium 11.2 mg/dL (8.5-10.5); Carbon Dioxide 20 mmol/L (22-29); Chloride 95 mmol/L (98-107); Globulin 4.1 g/dL (1.3-4.6); Glucose 113 mg/dL (65-115); Magnesium 2.3 mg/dL (1.7-2.3); Osmolality Calculated 270 mOsm/kg (285-295); Phosphorus 3.7 mg/dL (2.5-4.5); Potassium 5.9 mmol/L (3.5-5.1); Sodium 130 mmol/L (136-145); Total Bilirubin 4.7 mg/dL (0.15-1.2); Total Protein 7.6 g/dL (6.6-8.7)
[2019-11-26 05:56] LABS: Aspartate Amino Transferase 67 U/L (0-32)
[2019-11-26] MEDS: sodium chloride 0.9% 1,000 ML 50 ML IV (06:31)
--- NOTE | 2019-11-26 08:56 | P.PN_ITS ---
Subjective Subjective: Interval history: Sheila reports she feels okay, but not great. No nausea. Medications: Reviewed: Yes Vitals/I&O/Wt Last Vital Signs Temp 98.4 F 11/26/19 07:59 Pulse 66 11/26/19 07:59 Resp 16 11/26/19 07:59 BP 104/64 11/26/19 07:59 Pulse Ox 95 11/26/19 07:59 11/25/19 11/26/19 11/26/19 22:59 06:59 14:59 Intake Total 1000 / 1050 Output Total 500 / 500 600 / 1100 Balance -500 / -450 400 / -50 Weight last 48 hrs Weight 127.459 kg Physical Exam Narrative: EXAM NARRATIVE: General exam is a jaundiced white female, obese, in no apparent distress Cardiovascular regular rate and rhythm without murmur Lungs clear Abdomen is soft nontender, no evidence of fluid wave, positive bowel sounds Extremities 1+ edema, pitting. No cyanosis or clubbing Urinary Catheter Management^: Anne: Cath Placed During This Visit: yes Reason for Continuing Indwelling Catheter: Other Urinary Catheter Date of Insertion: 11/25/19 Urinary Catheter Time of Insertion: 01:01 Data : 11/26/19 05:10 11/26/19 05:10 A&P Assessment and plan (1) Altered mental status: Most likely encephalopathy, secondary to renal failure. Multiple concomitant illnesses as well as patient's underlying hyponatremia, liver f ailure may play a role as well although ammonia level was normal. She is improved Status: Acute (2) SBP (spontaneous bacterial peritonitis): Very small amount of ascites noted just around the liver. Patient denies any abdominal pain currently. No fever. White blood cell count slightly elevated on admission, but normal now. Placed on ceftriaxone on admission, and given albumin. Discontinue albumin for now. No paracentesis is planned currently. Status: Acute (3) Hyponatremia: Stable even though slight amount of saline added for renal failure. Continue to monitor closely. Hold diuretics Check BMP this afternoon and tomorrow Status: Acute (4) Acute kidney injury: Likely secondary to diuretics. Continue to hold diuretics Continue IV fluids at 50 cc an hour Status: Acute (5) Fall: Fall a week ago followed with neck pain which is persistent, lower back pain Plan: No evidence of fracture on multiple x-rays Status: Acute (6) Cirrhosis of liver with ascites: Very minor amount of ascites, only around the liver. Enlarging lymph nodes noted around the liver. Alpha-fetoprotein slightly elevated. CEA slightly elevated. Patient unable to cooperate for MRCP. CA-19-9 level normal. Liver function test slightly improved. Continue to follow. Status: Chronic Qualifiers: Hepatic cirrhosis type: unspecified hepatic cirrhosis Qualified Code(s): K74.60 - Unspecified cirrhosis of liver; R18.8 - Other ascites (7) Localized swelling of both lower legs: Unchanged Status: Acute (8) Hyperlipidemia: Status: Acute Qualifiers: Hyperlipidemia type: mixed hyperlipidemia Qualified Code(s): E78.2 - Mixed hyperlipidemia (9) Hypertension: Hold atenolol. Patient borderline hypotensive Status: Acute Qualifiers: Hypertension type: essential hypertension Qualified Code(s): I10 - Essential (primary) hypertension (10) Thrombocytopenia: Secondary to cirrhosis Status: Acute (11) Diastolic CHF: Not in acute exacerbation Status: Acute Additional A&P Information Hypercalcemia. May be secondary to intravascular volume depletion but malignancy would be another concern. Follow closely. Overall unchanged Hyperkalemia. May have been secondary to renal failure, Aldactone, potassium. Diuretics being held and potassium discontinued. Kayexalate 30 g p.o. today. Recheck BMP at 1600 History of hepatic encephalopathy. Currently on lactulose and rifaximin Radiographic evidence of varices Anemia, likely secondary to cirrhosis Past history of chronic kidney disease, now with acute kidney injury Type 2 diabetes, diet controlled Obesity Multiple other medical problems as outlined in past medical history. Limited code SCDs for DVT prophylaxis secondary to thrombocytopenia I reviewed her case with niece who is patient's advocate and patient reports she makes decisions for her regarding her medical care. Niece does not want aggressive surgical care considering her underlying diagnosis and at this point we will continue to treat only medically. Attestations Medical Necessity Statement*: Needs continued hospitalization secondary to hyperkalemia, renal failure, liver failure. Coding Level of Care Code Acute Sales Training Coordinator for Chg Fwd Diagnoses Altered mental status R41.82 SBP (spontaneous bacterial peritonitis) K65.2 Hyponatremia E87.1 Acute kidney injury N17.9 Fall W19.XXXA Cirrhosis of liver with ascites K74.60; R18.8 Hepatic cirrhosis type: unspecified hepatic cirrhosis Localized swelling of both lower legs R22.43 Hyperlipidemia E78.2 Hyperlipidemia type: mixed hyperlipidemia Hypertension I10 Hypertension type: essential hypertension Thrombocytopenia D69.6 Diastolic CHF I50.30
[2019-11-26] MEDS: albumin 12.5 gm/50 mL IV IV ×4 (09:05→09:10)
[2019-11-26] MEDS: duloxetine 30 mg Capsule PO (09:37)
[2019-11-26] MEDS: lactulose oral liq 20 gm/30 mL UDC 10 GM PO ×2 (09:37→18:42)
[2019-11-26] MEDS: cholecalciferol (vitamin D3) 1,000 unit Tablet 2000 UNIT PO (09:37)
[2019-11-26] MEDS: pantoprazole DR 40 mg Tablet PO ×2 (09:37→18:42)
[2019-11-26] MEDS: cefTRIAXone 2,000 MG in sodium chloride 0.9% (plus) 50 ML 100 MG IV ×2 (09:38→23:21)
[2019-11-26] MEDS: sodium polystyrene sulfonate 15 gm/60 mL Btl 30 GM PO (09:42)
[2019-11-26 16:50] LABS: Anion Gap 20.2 (5-19); Blood Urea Nitrogen 67 mg/dL (8-23); Calcium 10.8 mg/dL (8.5-10.5); Carbon Dioxide 20 mmol/L (22-29); Chloride 94 mmol/L (98-107); Glucose 145 mg/dL (65-115); Osmolality Calculated 270 mOsm/kg (285-295); Potassium 5.2 mmol/L (3.5-5.1); Sodium 129 mmol/L (136-145)
[2019-11-27] VITALS (9 sets, daily range): BP systolic 113–130; BP diastolic 56–74; PULSE 62–94; RESP 16–18; TEMP 36.5–37; O2SAT 97–99
[2019-11-27] MEDS: sodium chloride 0.9% 1,000 ML 50 ML IV (04:21)
[2019-11-27 05:47] LABS: Basophils % 0.3 %; Eosinophils # 0.1 10^3/uL (0.0-0.8); Eosinophils % 1.9 %; Hematocrit 29.1 % (37.0-47.0); Hemoglobin 9.5 g/dL (11.5-15.3); Lymphocytes # 1.1 10^3/uL (0.8-4.8); Lymphocytes % 15.6 %; Mean Corpuscular HGB Conc 32.6 g/dL (30.0-36.0); Mean Corpuscular Hemoglobin 35.2 pg (28.0-34.0); Mean Corpuscular Volume 107.8 fL (81-99); Mean Platelet Volume 12.2 fL (7.4-10.4); Monocytes # 0.8 10^3/uL (0.2-0.9); Monocytes % 10.4 %; Neutrophils # 5.1 10^3/uL (1.8-7.7); Neutrophils % 71.4 %; Nucleated Red Blood Cells % 0 %; Platelet Count 63 10^3/cmm (130-400); Red Cell Distribution Width 17.1 % (12.1-15.1); White Blood Count 7.2 10^3/uL (4.0-10.0)
[2019-11-27 06:13] LABS: Alanine Aminotransferase 41 U/L (0-33); Albumin Level 3.3 g/dL (3.5-5.2); Alkaline Phosphatase 204 IU/L (35-105); Anion Gap 18.7 (5-19); Blood Urea Nitrogen 55 mg/dL (8-23); Calcium 10.5 mg/dL (8.5-10.5); Carbon Dioxide 21 mmol/L (22-29); Chloride 97 mmol/L (98-107); Glucose 110 mg/dL (65-115); Magnesium 2.3 mg/dL (1.7-2.3); Osmolality Calculated 273 mOsm/kg (285-295); Phosphorus 3.7 mg/dL (2.5-4.5); Potassium 4.7 mmol/L (3.5-5.1); Sodium 132 mmol/L (136-145); Total Bilirubin 3.7 mg/dL (0.15-1.2); Total Protein 7.3 g/dL (6.6-8.7)
[2019-11-27 06:32] LABS: Aspartate Amino Transferase 83 U/L (0-32)
[2019-11-27] MEDS: lactulose oral liq 20 gm/30 mL UDC 10 GM PO (08:48)
[2019-11-27] MEDS: duloxetine 30 mg Capsule PO (08:49)
[2019-11-27] MEDS: cholecalciferol (vitamin D3) 1,000 unit Tablet 2000 UNIT PO (08:49)
[2019-11-27] MEDS: pantoprazole DR 40 mg Tablet PO (08:49)
--- NOTE | 2019-11-27 09:53 | PC.CHAP ---
Pastoral Care Encounter/Spiritual Assessment Type of Contact [] Declined handcrew foreman visit [] Patient/Family/Request visit [] Outpatient visit [] Follow-up visit [] Physician referral [] Code/Alert [x] Routine visit [] Staff referral [] Actively dying [] Patient sleeping [] Family support [] [] Out of room [] Palliative care [] [] Receiving care in room [] Pre-surgical visit [] Trauma [] Long length of stay [] ICU visit [] Other: Relational/Emotional Strength [] Patient feels connected with others/family/visitors/staff [] Distress [] Loneliness/isolation [] Abandonment Spirituality of Patient [] Person of Argenis [] Attends Zoroastrian of their Argenis [] Believes in Prayer [] Reads Bible or Samaritan materials [] There are Spiritual issues to be addressed Beamster Interventions [x] Prayer [] Active listening [] Non-anxious presence [] Spiritual/emotional support [] Crisis/trauma care [] Spiritual counseling [] Bereavement support [] Provided bereavement packet [] Provided Bible/devotional materials [] Provided toy/stuffed animal, coloring book to patient or family member [] Provided Communion [] Anointing/[place] [] Salvation [x] Completed spiritual assessment [] Other: Impact on Illness or Injury [] Angry [] Fearful [] Anxious [] Often cries [] Exhaustion [] Unable to work [] Unable to attend pentecostalism [] Unable to walk/stand [] Unable to read [] Unable to drive [] Unable to eat/drink [] Unable to sleep [] Unable to be with family [] Patient intubated [] Other: Summary Dhaval followup visit. Patient still unable to move around- weakness seems to have advanced to soreness throughout her body. Time spent with patient
--- NOTE | 2019-11-27 11:34 | P.DS_ITS ---
Discharge Providers Date of Admission: 11/24/19 21:53 Date of Discharge: November 27, 2019 Attending Provider at Admission: Nickolas Kelly MD Attending Provider at Discharge: Robbie Denton MD Primary Care Provider: Delvis Ortiz DO Diagnoses at Discharge Discharge Diagnosis (1) Altered mental status: Status: Acute Problem details: Improved (2) SBP (spontaneous bacterial peritonitis): Status: Acute Problem details: Unconfirmed and doubtful. (3) Hyponatremia: Status: Acute Problem details: Improved (4) Acute kidney injury: Status: Acute Problem details: Improving (5) Fall: Status: Acute (6) Cirrhosis of liver with ascites: Status: Chronic Problem details: Qualifiers: Hepatic cirrhosis type: unspecified hepatic cirrhosis Qualified Code(s): K74.60 - Unspecified cirrhosis of liver; R18.8 - Other ascites (7) Localized swelling of both lower legs: Status: Acute (8) Hyperlipidemia: Status: Acute Qualifiers: Hyperlipidemia type: mixed hyperlipidemia Qualified Code(s): E78.2 - Mixed hyperlipidemia (9) Hypertension: Status: Acute Qualifiers: Hypertension type: essential hypertension Qualified Code(s): I10 - Essential (primary) hypertension (10) Thrombocytopenia: Status: Acute Problem details: -likely secondary to underlying liver cirrhosis -no antiplatelets or anticoagulation due to bleeding risk -stable platelet count today, continue to trend -noted elevated free kappa and lamda light chains on SPEP; UPEP with no M spike noted. Following up with Dr. Aguila (11) Diastolic CHF: Status: Acute Reason for Visit Reason for Visit: Reason For Visit: GENERALIZED WEAKNESS Hospital Course Hospital Course: Sheila presented to the hospital with generalized weakness, mental status change. Laboratory demonstrated hyperkalemia, renal failure, worsening liver function testing. Multiple CTs demonstrated no fractures, and no acute brain injury on CT head. CT abdomen and pelvis demonstrated new pericaval lymphadenopathy but no definite mass or obstruction. During her hospital stay her potassium, and diuretics were held and she had slow improvement of her renal function, sodium, potassium, liver function tests. An MRCP was intended, but patient could not cooperate with exam. I discussed with her niece, who makes medical decisions for the patient(patient confirmed this as well) and overall it was decided no invasive procedures would likely benefit the patient overall. By the end of the hospital stay patient was conversive, pleasant. Creatinine had decreased to 2.1. Sodium up to 132. Total bilirubin had decreased to 3.7. It was thought she could be discharged back to the nursing facility. While in the hospital there was an initial concern of SBP. I believe this is doubtful. She did have UTI, enterococcus, culture pending at discharge. She will finish up a short course of ampicillin. She will restart lower dose Lasix tomorrow, with no potassium and no Aldactone. Further adjustments will likely be necessary so repeat BMP will be obtained in 3 days. Physical Exam Narrative: EXAM NARRATIVE: General exam no apparent distress Cardiovascular regular rate and rhythm, no murmur Abdomen is soft with positive bowel sounds Lungs clear Extremities 2+ edema bilaterally. Urinary Catheter Management^: Anne: Cath Placed During This Visit: yes Reason for Continuing Indwelling Catheter: Other Urinary Catheter Date of Insertion: 11/25/19 Urinary Catheter Time of Insertion: 01:01 Discharge Data Data Completed and Pending: Completed Studies During Hospitalization Category Date Time Status CT abdomen pelvis wo con [id number] Urge nt Cat Scan 11/24/19 20:[address] cervical spin wo con* [id number] Urge nt Cat Scan 11/24/19 21:[address] head wo con* 7 [id number] Urgent Cat Scan 11/24/19 17:[address] lumbar spine w o con* [id number] Urgen t Cat Scan 11/24/19 21:[address] thoracic spin wo con* [id number] Urge nt Cat Scan 11/24/19 21:51 Completed XR chest 1V angelika ble [id number] Urgent Exams 11/24/19 17:56 Completed US gall bladder 7 6705 Urgent Ultrasound 11/24/19 19:12 Completed Pending at discharge Category Date Time Status Urine Culture Sta t Lab 11/24/19 18:30 Results Labs from last 24 hours 11/27/19 11/27/19 11/26/19 05:32 05:32 16:10 WBC 7.2 RBC 2.70 L Hgb 9.5 L Hct 29.1 L MCV 107.8 H MCH 35.2 H MCHC 32.6 RDW 17.1 H Plt Count 63 L MPV 12.2 H Neut % (Auto) 71.4 Lymph % (Auto) 15.6 [place] % (Auto) 10.4 Eos % (Auto) 1.9 Baso % (Auto) 0.3 Neut # (Auto) 5.1 Lymph # (Auto) 1.1 [place] # (Auto) 0.8 Eos # (Auto) 0.1 Baso # (Auto) 0.0 Nucleated RBC % (a uto) 0 Nucleated RBCs # 0.0 Sodium 132 L 129 L Potassium 4.7 5.2 H Chloride 97 L 94 L Carbon Dioxide 21 L 20 L Anion Gap 18.7 20.2 H BUN 55 H 67 H Creatinine 2.1 H 2.6 H Glucose 110 145 H Calculated Osmolal ity 273 L 270 L Calcium 10.5 10.8 H Phosphorus 3.7 Magnesium 2.3 Total Bilirubin 3.7 H AST 83 H ALT 41 H Alkaline Phosphata se 204 H Total Protein 7.3 Albumin 3.3 L Globulin 4.0 Vitals: Last Vital Signs Temp 98.1 F 11/27/19 11:23 Pulse 72 11/27/19 11:23 Resp 18 11/27/19 11:23 BP 130/64 11/27/19 11:23 Pulse Ox 97 11/27/19 11:23 Discharge Plan Discharge Patient Disposition: Xfer SNF Condition: Stable Prescriptions: New ampicillin 500 mg capsule 500 mg PO QID Qty: 20 RF: 0 furosemide [Lasix] 40 mg tablet 40 mg PO BID Qty: 60 RF: 0 Continued cholecalciferol (vitamin D3) 2,000 unit tablet 2,000 unit PO DAILY RF: 0 pantoprazole 40 mg Tablet,Delayed Release (Dr/Ec) 40 mg PO BID 30 Days Qty: 60 RF: 0 Xifaxan 550 mg Tablet 550 mg PO BID 30 Days Qty: 60 RF: 0 lactulose 20 gram/30 mL Solution 10 g PO BID Qty: 30 RF: 0 atenolol 25 mg tablet 25 mg PO DAILY 30 Days Qty: 30 RF: 0 duloxetine 30 mg Capsule,Delayed Release(Dr/Ec) 30 mg PO DAILY 30 Days Qty: 30 RF: 0 cholecalciferol (vitamin D3) 2,000 unit/drop drops 2,000 unit PO DAILY Qty: 30 RF: 0 Discontinued potassium chloride 10 mEq Tablet Extended Release 40 meq PO DAILY 30 Days Qty: 120 RF: 0 spironolactone 25 mg Tablet 50 mg PO DAILY 30 Days Qty: 60 RF: 0 furosemide 40 mg tablet 80 mg PO BID 30 Days Qty: 120 RF: 0 meclizine 25 mg tablet 25 mg PO BID PRN (Reason: Dizziness Or Vertigo) 30 Days Qty: 60 RF: 0 Discharge Orders: Discharge Order (Routine); Ordered 11/27/19 Ordered By: Robbie Denton Referrals: [facility] [Outside] - 1-3 days (CBC, CMP in 3 days at nursing facility, Saturday.) Delvis Ortiz, DO [Primary Care Provider] - Discharge Diet: Usual diet Discharge Activity: Resume usual activity Activity Restrictions/Additional Instructions: Take all medicine as prescribed Repeat lab work on Saturday Discharge Attestations Time Spent in Discharge Care*: greater than 30 min Status at Discharge: Cognitive status at discharge: cognitively intact , Behavioral status at discharge: cooperative , Quality Metrics Clinical Quality Measures During this hospital stay, did patient experience: None Coding Level of Care Code Acute 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
--- NOTE | 2019-11-27 15:06 | PC.SOCIAL ---
IM initialed explained and copy provided to patient. no questions voiced patient is being dc'd.
== END 2019-11-27 14:27 | disposition skilled nursing facility (03) | DRG 683 ==
LOC: ER 20:32 → MEDSURG 22:21
PROVIDERS: Admitting Provider Family Medicine; Emergency Provider Emergency Medicine; Family Provider Electrodiagnostic Medicine; PCP Electrodiagnostic Medicine; Visit Provider Internal Medicine
DX: N17.9 Acute kidney failure, unspecified (principal); R18.8 Other ascites; I50.32 Chronic diastolic (congestive) heart failure; K76.6 Portal hypertension; N39.0 Urinary tract infection, site not specified; Z68.42 Body mass index [BMI] 45.0-49.9, adult; G93.40 Encephalopathy, unspecified; E87.1 Hypo-osmolality and hyponatremia; Z90.49 Acquired absence of other specified parts of digestive tract; K74.60 Unspecified cirrhosis of liver; I11.0 Hypertensive heart disease with heart failure; D69.59 Other secondary thrombocytopenia; D63.8 Anemia in other chronic diseases classified elsewhere; Z91.81 History of falling; E11.9 Type 2 diabetes mellitus without complications; M79.7 Fibromyalgia; K21.9 Gastro-esophageal reflux disease without esophagitis; E78.5 Hyperlipidemia, unspecified; G47.419 Narcolepsy without cataplexy; M19.90 Unspecified osteoarthritis, unspecified site; G47.33 Obstructive sleep apnea (adult) (pediatric); E53.8 Deficiency of other specified B group vitamins; E55.9 Vitamin D deficiency, unspecified; B95.2 Enterococcus as the cause of diseases classified elsewhere; E87.5 Hyperkalemia; E66.9 Obesity, unspecified; R59.0 Localized enlarged lymph nodes; M81.0 Age-related osteoporosis without current pathological fracture; E04.2 Nontoxic multinodular goiter; M79.89 Other specified soft tissue disorders; M54.5 Low back pain; M54.2 Cervicalgia; Z87.891 Personal history of nicotine dependence
CPT/HCPCS: 12345; 36415; 51702; 70450; 71045; 72125; 72128; 72131; 74176; 76705; 80048; 80053; 81001; 82105; 82140; 82247; 82248; 82378; 83036; 83690; 83735; 83880; 84100; 84145; 84443; 85025; 85610; 85651; 86140; 86301; 87077; 87086; 87186; 93005; 94664; 94760; 94762; 97110; 97161; 97530; 99283; J0696; J7030; P9047

== ENCOUNTER 2020-01-05 14:39 | Inpatient (IN) | payer MEDICARE, OTHER, SELFPAY ==
[2020-01-05 14:40] VITALS: BP 124/54; PULSE 69; RESP 18; TEMP 36.4; O2SAT 100; BMI 43.9
--- NOTE | 2020-01-05 14:41 | XR_ITS ---
WS: [id number] PORTABLE CHEST HISTORY: ams COMPARISON: 11/24/2019 Lung volumes are decreased with slight elevation of RIGHT hemidiaphragm. Benign granuloma central LEF T lung. No pleural effusion or pneumothorax. Cardiac size: Normal. Mediastinum/Aorta: Normal mediastinum. Mild thoracolumbar scoliosis. XR/XR chest 1V portable [id number] IMPRESSION: No acute cardiopulmonary disease.
--- NOTE | 2020-01-05 14:42 | ECG_ITS ---
Measurements Intervals [place] Rate: 63 P: 53 TX: 252 QRS: 5 QRSD: 98 T: 34 QT: 425 QTc: 436 SINUS RHYTHM WITH FIRST DEGREE AV BLOCK NONSPECIFIC T-WAVE ABNORMALITY Compared to ECG 11/24/2019 19:19:33 T-wave abnormality now present Electronically Signed On 01-05-2020 21:56:24 CDT by Elin Hoyt M.D. [email or web address]
[2020-01-05 14:48] LABS: Glucose Point of Care 123 mg/dL (70-110)
--- NOTE | 2020-01-05 14:53 | CT_ITS ---
WS: [id number] CT HEAD NONCONTRAST HISTORY: ams TECHNIQUE: Contiguous axial imaging performed through the brain in 2.5 mm imaging. Bone and soft tiss ue windows. Sagittal and coronal reformats reviewed. All CT scans at [facility] use at ast one of these dose optimization techniques: automated exposure control; mA and/or kV adjustment pe r patient size (includes targeted exams where dose is matched to clinical indication); or iterative r econstruction. DLP: 641.33 mGy.cm COMPARISON: 11/24/2019 No acute intracranial hemorrhage, midline shift or mass effect. Mild atrophy and mild chronic microvascular ischemic disease. Similar to the prior study. Small lacun ar infarcts along the external capsules bilaterally. Ventricles: Normal size with no hydrocephalus. No inferior displacement of cerebellar tonsils. Paranasal sinuses: As visualized are clear. Mastoid air cells: Well pneumatized. Calvarium and scalp: Skull is intact with no soft tissue edema or swelling. CT/CT head wo con* [id number] IMPRESSION: 1. No acute intracranial hemorrhage or edema. 2. Mild atrophy and chronic ischemic disease.
--- NOTE | 2020-01-05 14:58 | ED_ITS ---
HPI - Altered Mental Status General: Chief Complaint: Altered Mental Status Stated Complaint: AMS/ JAUNDICE/ LOW BS Time Seen by Provider: 01/05/20 14:39 Source: EMS Mode of arrival: EMS Limitations: altered mental status History of Present Illness: HPI narrative: 84-year-old female with a history of end-stage liver disease with cirrhosis. Per intermediate patient has become increasingly confused when EMS arrived her glucose was low. They gave her glucagon glucose is now 120 but patient is still only responsive to painful stimuli. She does have a history of hepatic encephalopathy. She is had no fevers per intermediate. Unable to get any history from patient. MD complaint: altered mental status Onset (ago): hour(s) Review of Systems General: Reports: ROS unobtainable due to mental status PFSH ED PFSH: Medical History (Updated 01/05/20 @ 15:46 by Shiraz Castro MD) Acute on chronic diastolic (congestive) heart failure The EKG revealed sinus rhythm with poor R wave progression. No acute ST-T changes Ascites Cirrhosis of liver with ascites Diabetes Fibromyalgia GERD (gastroesophageal reflux disease) Heart murmur, systolic Hyperlipidemia Hypertension Localized swelling of both lower legs Narcolepsy Osteoarthritis Sleep apnea Vitamin B12 deficiency Vitamin D deficiency Surgical History History of appendectomy History of cataract surgery Hx of cholecystectomy Family History Father Cancer Denies family history of Clotting disorder Chronic kidney disease (CKD) Social History Smoking and tobacco status: unknown if ever smoked Quit status (tobacco): has quit using tobacco Former quit date comment: She quit smoking when she was young Alcohol intake: never Marital status: History of recent travel: No Current gender identity: Female Physical Exam Const: COMMON NORMALS: no acute distress and healthy appearing; negative for patient oriented x3 EXAM LIMITATIONS: altered mental status GENERAL APPEARANCE: ill appearing HENMT: COMMON NORMALS: normocephalic and atraumatic HEAD & SCALP: normocephalic and atraumatic Eye: COMMON NORMALS: Equal, round and reactive pupils present and EOMs intact bilaterally PUPIL: Yes Equal, round and reactive pupils present Neck/C-Spine: COMMON NORMALS: full ROM and supple Chest: COMMONS NORMALS: normal inspection of the chest and normal palpation of entire chest wall Resp: COMMON NORMALS: normal respiratory effort, No retractions, No use of accessory muscles and clear to auscultation bilaterally AUSCULTATION: clear to auscultation bilaterally Cardio: COMMON NORMALS: regular rate, regular rhythm and No murmurs present (Cardio) RATE: regular rate RHYTHM: regular rhythm GI: COMMON NORMALS: Normal to inspection, nondistended, normoactive bowel sounds present, Soft to palpation, non-tender and no masses PALPATION: Yes Soft to palpation Extremity: COMMON NORMALS: normal to inspection and full ROM Neuro: COMMON NORMALS: negative for patient oriented x3, negative for moves all extremities and negative for no focal motor deficits Psych: COMMON NORMALS: negative for mental status grossly normal Skin: COMMON NORMALS: no rashes or lesions noted and no wounds GENERAL SKIN EXAM: no rashes or lesions noted Course Vital Signs: Vital signs: Vital Signs Temperature 97.5 F L 01/05/20 14:40 Pulse Rate 60 01/05/20 15:50 Respiratory Rate 21 H 01/05/20 15:50 Blood Pressure 105/84 01/05/20 15:50 Pulse Oximetry 98 01/05/20 15:50 MDM - Altered Mental Status MDM Narrative: Medical decision making narrative: Patient presents with altered mental status likely due to hepatic encephalopathy. Patient has no signs of sepsis or infection here. Patient CT head is normal. Patient is stable for admission to the floor. I spoke to hospitalist and will admit. Lab Data: Labs: Lab Results 01/05/20 01/05/20 01/05/20 Range/Units 14:45 15:15 15:15 WBC 9.6 (4.0-10.0) 10^3/ uL RBC 2.83 L (4.1-5.3) 10^6/u L Hgb 10.1 L (11.5-15.3) g/dL Hct 31.5 L (37.0-47.0) % MCV 111.3 H (81-99) fL MCH 35.7 H (28.0-34.0) pg MCHC 32.1 (30.0-36.0) g/dL RDW 17.0 H (12.1-15.1) % Plt Count 81 L (130-400) 10^3/c mm MPV 11.9 H (7.4-10.4) fL Neut % (Auto) 70.1 % Lymph % (Auto) 18.0 % [place] % (Auto) 10.0 % Eos % (Auto) 1.4 % Baso % (Auto) 0.2 % Neut # (Auto) 6.7 (1.8-7.7) 10^3/u L Lymph # (Auto) 1.7 (0.8-4.8) 10^3/u L [place] # (Auto) 1.0 H (0.2-0.9) 10^3/u L Eos # (Auto) 0.1 (0.0-0.8) 10^3/u L Baso # (Auto) 0.0 (0.0-0.1) 10^3/u L Nucleated RBC % (a uto) 0.5 % Nucleated RBCs # 0.1 /100WBC PT 16.90 H (10.5-13.3) SECO NDS INR 1.33 H (0.8-1.2) Sodium (136-145) mmol/L Potassium (3.5-5.1) mmol/L Chloride (98-107) mmol/L Carbon Dioxide (22-29) mmol/L Anion Gap (5-19) BUN (8-23) mg/dL Creatinine (0.5-0.9) mg/dL Glucose (65-115) mg/dL POC Glucose 123 (70-110) mg/dL Calculated Osmolal ity (285-295) mOsm/k g Calcium (8.5-10.5) mg/dL Total Bilirubin (0.15-1.2) mg/dL AST (0-32) U/L ALT (0-33) U/L Alkaline Phosphata se (35-105) IU/L Ammonia (11-51) umol/L Total Protein (6.6-8.7) g/dL Albumin (3.5-5.2) g/dL Globulin (1.3-4.6) g/dL Ethyl Alcohol (0-10) mg/dL 01/05/20 01/05/20 Range/Units 15:15 15:15 WBC (4.0-10.0) 10^3/ uL RBC (4.1-5.3) 10^6/u L Hgb (11.5-15.3) g/dL Hct (37.0-47.0) % MCV (81-99) fL MCH (28.0-34.0) pg MCHC (30.0-36.0) g/dL RDW (12.1-15.1) % Plt Count (130-400) 10^3/c mm MPV (7.4-10.4) fL Neut % (Auto) % Lymph % (Auto) % [place] % (Auto) % Eos % (Auto) % Baso % (Auto) % Neut # (Auto) (1.8-7.7) 10^3/u L Lymph # (Auto) (0.8-4.8) 10^3/u L [place] # (Auto) (0.2-0.9) 10^3/u L Eos # (Auto) (0.0-0.8) 10^3/u L Baso # (Auto) (0.0-0.1) 10^3/u L Nucleated RBC % (a uto) % Nucleated RBCs # /100WBC PT (10.5-13.3) SECO NDS INR (0.8-1.2) Sodium 130 L (136-145) mmol/L Potassium 4.8 (3.5-5.1) mmol/L Chloride 94 L (98-107) mmol/L Carbon Dioxide 20 L (22-29) mmol/L Anion Gap 20.8 H (5-19) BUN 79 H (8-23) mg/dL Creatinine 3.2 H (0.5-0.9) mg/dL Glucose 137 H (65-115) mg/dL POC Glucose (70-110) mg/dL Calculated Osmolal ity 272 L (285-295) mOsm/k g Calcium 9.9 (8.5-10.5) mg/dL Total Bilirubin 4.7 H (0.15-1.2) mg/dL AST 150 H (0-32) U/L ALT 87 H (0-33) U/L Alkaline Phosphata se 385 H (35-105) IU/L Ammonia 149 H (11-51) umol/L Total Protein 7.5 (6.6-8.7) g/dL Albumin 3.2 L (3.5-5.2) g/dL Globulin 4.3 (1.3-4.6) g/dL Ethyl Alcohol < 10 (0-10) mg/dL Imaging Data^: CXR: Attestation: I personally reviewed and interpreted this imaging study as follows: Radiologist's impression: [address] [address] XRay Report Signed Patient: Sheila Magaña Unit #: [id number] : 1935 Age/Sex: 84 / F ADM Date: 01/05/20 Loc: ER Room/Bed: Attending Dr: Ordering Provider/Ordering MD: Shiraz Castor MD Date of Service: 01/05/20 Procedure(s): XR chest 1V portable [id number] Accession Number(s): [id number] Report Number: [id number] WS: [id number] PORTABLE CHEST HISTORY: ams COMPARISON: 11/24/2019 Lung volumes are decreased with slight elevation of RIGHT hemidiaphragm. Benign granuloma central LEFT lung. No pleural effusion or pneumothorax. Cardiac size: Normal. Mediastinum/Aorta: Normal mediastinum. Mild thoracolumbar scoliosis. XR/XR chest 1V portable [id number] IMPRESSION: No acute cardiopulmonary disease. EKG Data^: EKG 1: Attestation: I personally reviewed and interpreted this EKG as follows: EKG interpretation date: 01/05/20 EKG interpretation time: 15:08 Interpretation: nsr hr [address] or t wave abnormalities qrs 98 qtc 432 Discharge Plan Discharge Patient Disposition: Admitted As Inpatient Admit Provider: Ariana Roberts Clinical Impression: Acute hepatic encephalopathy Condition: Stable Referrals: Delvis Ortiz DO [Primary Care Provider] - Coding Level of Care Code ED Desktop Publishing Associate for Chg Fwd Exam Comprehensive
[2020-01-05 15:00] VITALS: BP 127/59; PULSE 64; RESP 16; O2SAT 99
[2020-01-05] MEDS: sodium chloride 0.9% 1,000 ML 999 ML IV (15:10)
[2020-01-05 15:27] LABS: Basophils % 0.2 %; Eosinophils # 0.1 10^3/uL (0.0-0.8); Eosinophils % 1.4 %; Hematocrit 31.5 % (37.0-47.0); Hemoglobin 10.1 g/dL (11.5-15.3); Lymphocytes # 1.7 10^3/uL (0.8-4.8); Mean Corpuscular HGB Conc 32.1 g/dL (30.0-36.0); Mean Corpuscular Hemoglobin 35.7 pg (28.0-34.0); Mean Corpuscular Volume 111.3 fL (81-99); Mean Platelet Volume 11.9 fL (7.4-10.4); Neutrophils # 6.7 10^3/uL (1.8-7.7); Neutrophils % 70.1 %; Nucleated Red Blood Cells # 0.1 /100WBC; Nucleated Red Blood Cells % 0.5 %; Platelet Count 81 10^3/cmm (130-400); Red Blood Count 2.83 10^6/uL (4.1-5.3); White Blood Count 9.6 10^3/uL (4.0-10.0)
[2020-01-05 15:36] LABS: INR 1.33 (0.8-1.2)
[2020-01-05 15:40] LABS: Alanine Aminotransferase 87 U/L (0-33); Albumin Level 3.2 g/dL (3.5-5.2); Alkaline Phosphatase 385 IU/L (35-105); Ammonia 149 umol/L (11-51); Anion Gap 20.8 (5-19); Aspartate Amino Transferase 150 U/L (0-32); Blood Urea Nitrogen 79 mg/dL (8-23); Calcium 9.9 mg/dL (8.5-10.5); Carbon Dioxide 20 mmol/L (22-29); Chloride 94 mmol/L (98-107); Globulin 4.3 g/dL (1.3-4.6); Glucose 137 mg/dL (65-115); Osmolality Calculated 272 mOsm/kg (285-295); Potassium 4.8 mmol/L (3.5-5.1); Sodium 130 mmol/L (136-145); Total Bilirubin 4.7 mg/dL (0.15-1.2); Total Protein 7.5 g/dL (6.6-8.7)
[2020-01-05 15:50] VITALS: BP 105/84; PULSE 60; RESP 21; O2SAT 98
--- NOTE | 2020-01-05 15:50 | PC.NURSE ---
In patients room to cath patient. Patient had vomited bile. Patient also had very yellow stool in her depends when this RN went to cath the patient. Patient cleaned up and bed changed. Patient cath at this time.
[2020-01-05 15:54] LABS: Alcohol Level < 10 mg/dL (0-10)
--- NOTE | 2020-01-05 16:19 | PM.HP ---
Providers/Chief Complaint Admitting Physician: Ariana Roberts MD Primary Care Provider: Delvis Ortiz DO Chief Complaint: AMS/ JAUNDICE/ LOW BS History of Present Illness Sheila Magaña is a 84 year old female with PMHx of Liver cirrhosis, Morbid obesity, CKD stage 5 (not on dialysis), HTN, Hyperlipidemia, Chronic LE lymphedema; presents via ambulance from [place] for evaluation of noted worsening confusion, poor oral intake and decreased responsiveness over the past several days. Patient is obtunded during my evaluation in the ER so history is obtained from discussion with nurse Alberts from [facility] as well as review of medical record. Patient is known to me from previous admission in October during which time she had presented with generalized anasarca, thrombocytopenia and anemia. She was subsequently admitted in November for altered mental status, acute kidney injury. Patient was scheduled to have a nephrology evaluation for possible initiation of dialysis given continued renal impairment but could not even get up to get transported to the clinic. Over the past 2 to 3 days she has had decreasing oral intake, typically requires feeding assistance and has been intermittently been unable to take her medications. She is nonambulatory at baseline. She has also gradually become jaundiced and as of this morning was minimally responsive. Per nursing staff she has had at least one bowel movement a day, she had a small one earlier today. It seems that patient was noted to be hypoglycemic though exact Accu-Chek is unknown. She received a dose of glucagon with blood glucose here being 120. Anne catheter was placed and urine looks cloudy. She had bilious looking liquid bowel movement on her arrival in the ER. She has some residual bilious material on the right side of her mouth. She moans and groans while I am cleaning her up but is otherwise unresponsive. Work-up shows a normal white count at 9.6, anemia with a hemoglobin of 10.1, thrombocytopenia with a platelet count of 81, hyponatremia with a sodium of 130, BUN of 79, creatinine of 3.2, increased anion gap at 20.8, INR of 1.33, elevated liver function tests, ammonia of 149. She received IV fluid hydration, lactulose which is currently being administered. She is a full code per paperwork provided from [place]. DPOA is ben Lopez. Patient is being admitted for management of hepatic encephalopathy, IVF hydration and monitoring of mental status Review of Systems General: Reports: ROS unobtainable due to mental status (obtained from NH staff) Const: Reports: change in appetite (decreased intake) Neuro: Reports: confusion Medications/Allergies Home Medications Medication Instructions Recorded Confirmed Last Taken Type cholecalciferol (vitamin D3) 50 2,000 unit PO DAILY 09/23/19 01/05/20 01/05/20 07:56 History mcg (2,000 unit) tablet atenolol 25 mg PO DAILY 30 Days #30 tab 10/27/19 01/05/20 01/05/20 07:56 Rx duloxetine 30 mg PO DAILY 30 Days #30 cap 10/27/19 01/05/20 01/03/20 08:25 Rx lactulose 10 g PO BID #30 ml 10/27/19 01/05/20 01/05/20 07:55 Rx furosemide [Lasix] 40 mg PO BID #60 tab 11/27/19 01/05/20 01/05/20 07:56 Rx Lactobacillus rhamnosus GG 1 cap PO DAILY 01/05/20 01/05/20 01/05/20 07:55 History [Culturelle] Lymphedema Wraps See Rx Instructions .ROUTE .COMPLEX 01/05/20 01/05/20 01/05/20 History bisacodyl [Dulcolax (bisacodyl)] 10 mg [place] DAILY PRN 01/05/20 01/05/20 Unknown History meclizine 25 mg PO BID PRN 01/05/20 01/05/20 Unknown History pantoprazole [Protonix] 40 mg PO BID 01/05/20 01/05/20 01/05/20 07:55 History rifaximin [Xifaxan] 550 mg PO BID 01/05/20 01/05/20 01/05/20 07:55 History Allergies Allergy/AdvReac Type Severity Reaction Status Date / Time No Known Allergies Allergy Verified 11/24/19 18:05 PFSH Acute PFSH: Medical History Acute on chronic diastolic (congestive) heart failure The EKG revealed sinus rhythm with poor R wave progression. No acute ST-T changes Ascites Cirrhosis of liver with ascites Diabetes Fibromyalgia GERD (gastroesophageal reflux disease) Heart murmur, systolic Hyperlipidemia Hypertension Localized swelling of both lower legs Narcolepsy Osteoarthritis Sleep apnea Vitamin B12 deficiency Vitamin D deficiency Surgical History History of appendectomy History of cataract surgery Hx of cholecystectomy Family History Father Cancer Denies family history of Clotting disorder Chronic kidney disease (CKD) Social History (Updated 01/05/20 @ 17:18 by Ariana Roberts MD) Smoking and tobacco status: unknown if ever smoked Quit status (tobacco): has quit using tobacco Former quit date comment: She quit smoking when she was young Alcohol intake: never Housing: [facility] Marital status: History of recent travel: No Current gender identity: Female Vitals/I&O/Wt Last Vital Signs Temp 97.5 F L 01/05/20 14:40 Pulse 60 01/05/20 15:50 Resp 21 H 01/05/20 15:50 BP 105/84 01/05/20 15:50 Pulse Ox 98 01/05/20 15:50 Weight last 48 hrs Weight 112.491 kg Physical Exam Const: COMMON NORMALS: no acute distress GENERAL APPEARANCE: lethargic and other (restless); not cooperative NUTRITIONAL APPEARANCE: obese morbidly obese ORIENTATION/CONSCIOUSNESS: Yes lethargic OTHER: -non-verbal, moans and groans HENMT: COMMON NORMALS: normocephalic and atraumatic HEAD & SCALP: normocephalic and atraumatic MOUTH: moist mucous membranes abnormal (dried bilious-looking residue on R side of mouth) Details: cracked Eye: COMMON NORMALS: Equal, round and reactive pupils present and conjunctivae normal CONJUNCTIVA: Yes conjunctivae normal SCLERA: scleral abnormal Laterality of scleral abnormality: positive bilateral scleral icterus (mild) PUPIL: Yes Equal, round and reactive pupils present Neck/C-Spine: GENERAL: Yes normal visual inspection and Yes trachea midline OTHER: -short, thick neck Chest: CHEST: Yes Symmetrical chest wall rise Resp: COMMON NORMALS: normal respiratory effort, No retractions, No use of accessory muscles and clear to auscultation bilaterally EFFORT & INSPECTION: Yes symmetric chest movement and No tachypneic AUSCULTATION: clear to auscultation bilaterally OTHER: -on RA Cardio: COMMON NORMALS: regular rate, regular rhythm, S1 normal heart sound present, S2 normal heart sound present and No murmurs present (Cardio) RATE: regular rate RHYTHM: regular rhythm HEART SOUNDS: S1 normal heart sound present and S2 normal heart sound present GI: COMMON NORMALS: Normal to inspection, nondistended, normoactive bowel sounds present, Soft to palpation and non-tender INSPECTION: Yes central obesity PALPATION: Yes Soft to palpation : BLADDER/KIDNEY EXAM: Yes catheter in place Catheter type (Female): urethral Extremity: COMMON NORMALS: normal to inspection, full ROM, no clubbing, cyanosis or edema and no pedal edema NARRATIVE EXTREMITY EXAM: -compression stockings on Neuro: SENSORIUM/ORIENTATION: Yes obtunded Psych: SPEECH: Yes normal speech THOUGHT PROCESS: Normal thought process present OTHER: -unable to assess due to obtundation Skin: COMMON NORMALS: no rashes or lesions noted, no jaundice, no petechiae and no mottling GENERAL SKIN EXAM: no rashes or lesions noted Urinary Catheter Management^: Anne: Cath Placed During This Visit: yes Urethral Indwelling: Yes Reason for Continuing Indwelling Catheter: Accurate Measurement of Urinary Output in Critically Ill Patients Urinary Catheter Date of Insertion: 01/05/20 Urinary Catheter Time of Insertion: 15:50 Data : 01/05/20 15:15 01/05/20 15:15 A&P Assessment and plan (1) Acute hepatic encephalopathy: -currently obtunded -significant ammonia elevation-149; start on lactulose enemas pending improved mental status -trend ammonia -fall, aspiration precautions; bedrest for now, bed alarm, may need 1:1 monitoring if safety risk -Anne catheter placed in ED, monitor urine output, assess daily for removal Status: Acute (2) Cirrhosis: -has known liver cirrhosis complicated by portal hypertension and varices -Abdomen does not appear distended at this time though she does have generalized anasarca -Etiology of liver cirrhosis likely BRIDGES as she is a non-smoker and has no history of alcohol abuse -Follows up with Dr. Powers -Noted LFTs, continue to trend -On lactulose, resume rifaximin; hold diuretics at this time secondary to risk of hypotension -Coags noted, INR-1.33 Status: Chronic Qualifiers: Ascites presence: without ascites Hepatic cirrhosis type: unspecified hepatic cirrhosis Qualified Code(s): K74.60 - Unspecified cirrhosis of liver (3) UTI (urinary tract infection): -UA indicative of infection which could be contributing to altered mental status -f/u urine cx -start on Ceftriaxone -has Anne catheter Status: Acute Qualifiers: Urinary tract infection type: acute cystitis Hematuria presence: without hematuria Qualified Code(s): N30.00 - Acute cystitis without hematuria (4) Hyponatremia: -on IVF hydration -trend Na Status: Acute (5) Diastolic CHF: -does not appear to be decompensated at this time -Echo (08/2019): EF=60%, no RWMA, GIDD. -Follows up with Dr. Dukes -Gentle IV fluid hydration to avoid risk of fluid overload Status: Chronic Qualifiers: Heart failure chronicity: chronic Qualified Code(s): I50.32 - Chronic diastolic (congestive) heart failure (6) Acute kidney injury: -MARK on CKD stage 5; baseline Cr was previously around 1.3-1.5; has been trending up to around 2 -Monitor renal function, avoid nephrotoxins, renally dose meds -On IVF hydration Status: Acute (7) Thrombocytopenia: -likely secondary to underlying liver cirrhosis -no antiplatelets or anticoagulation due to bleeding risk; monitor for bleeding -baseline platelet count is around 70s; continue to trend -noted elevated free kappa and lamda light chains on SPEP; UPEP with no M spike noted. Following up with Dr. Aguila Status: Chronic (8) Anemia: -chronic macrocytic anemia -baseline Hg is 9-10 -continue to trend Hg -has been f/u with Dr. Aguila Status: Chronic Qualifiers: Anemia type: unspecified type Qualified Code(s): D64.9 - Anemia, unspecified (9) Hypertension: -normotensive currently, continue to monitor vital signs -hold diuretics as NPO to avoid hypotension Status: Chronic Qualifiers: Hypertension type: essential hypertension Qualified Code(s): I10 - Essential (primary) hypertension (10) Hyperlipidemia: Status: Chronic Qualifiers: Hyperlipidemia type: mixed hyperlipidemia Qualified Code(s): E78.2 - Mixed hyperlipidemia Additional A&P Information -Morbid obesity: BMI-44 kg/m2 -non-ambulatory at baseline -GERD -NOLA -OA, fibromyalgia, gout -Anxiety/depression -GI ppx with PPI -DVT ppx with SCDs, no AC due to bleeding risk -Dispo: return to [facility]; DPOA in niece Carolina John -Code status: FULL code, paperwork in chart Attestations Medical Necessity Statement*: Sheila Magaña's hospital stay will require greater than 2 midnights for management of acute hepatic encephalopathy, currently obtunded. Time Spent in Patient Care: Greater than 35 minutes (>than 50% of time spent in counselling and/or direct pt care on unit). Coding Level of Care Code Acute Public Administration Professor for Chg Fwd Exam Comprehensive Diagnoses Acute hepatic encephalopathy K72.00 Cirrhosis K74.60 Ascites presence: without ascites Hepatic cirrhosis type: unspecified hepatic cirrhosis UTI (urinary tract infection) N30.00 Urinary tract infection type: acute cystitis Hematuria presence: without hematuria Hyponatremia E87.1 Diastolic CHF I50.32 Heart failure chronicity: chronic Acute kidney injury N17.9 Thrombocytopenia D69.6 Anemia D64.9 Anemia type: unspecified type Hypertension I10 Hypertension type: essential hypertension Hyperlipidemia E78.2 Hyperlipidemia type: mixed hyperlipidemia
[2020-01-05] MEDS: lactulose oral liq 20 gm/30 mL UDC 30 GM PO (16:21)
[2020-01-05 16:29] LABS: Add Urine Microscopic? YES; Bilirubin Urine Neg (NEGATIVE); Blood Urine Neg (Negative); Glucose Urine UA Norm (Normal); Ketones Urine Negative (Negative); Nitrate Urine Negative (Negative); Protein Urine Neg (Negative); Urine Appearance Hazy (CLEAR); Urine Color Dark Yellow (Yellow); Urobilinogen Urine Norm (Negative); pH Urine 8 (5-7)
[2020-01-05 16:31] LABS: Leukocyte Esterase Urine 1+ (Negative)
[2020-01-05 16:33] LABS: Add Urine Culture? Yes; Bacteria Urine 3+; RBC Urine 0-4 /hpf (0-2); Squamous Epithelial Cell Urine 0-4 (0-5); Transitional Epi Cells Urine 0-4 /hpf; WBC Urine 25-40 /hpf (0-5)
[2020-01-05 16:36] LABS: Sulfosalicylic Acid Urine Positive (Negative)
--- NOTE | 2020-01-05 16:55 | PC.NURSE ---
Patient had a bowel movement. Patient changed and cleaned up at this time. Patient resting comfortable in bed.
[2020-01-05 17:22] VITALS: BP 108/51; PULSE 61; RESP 16; TEMP 37; O2SAT 99
[2020-01-05 17:34] LABS: Glucose Point of Care 112 mg/dL (70-110)
--- NOTE | 2020-01-05 17:40 | PC.NURSE ---
Called Mayco Alves [phone] and received admission assessment from [facility] nurse
[2020-01-05] MEDS: dextrose 5%-sod chloride 0.45% 1,000 ML 75 ML IV (18:13)
[2020-01-05] MEDS: cefTRIAXone 1,000 MG in sodium chloride 0.9% (plus) 50 ML 100 MG IV (18:13)
[2020-01-05 20:00] VITALS: BP 106/60; PULSE 63; RESP 20; TEMP 36.4; O2SAT 100
[2020-01-05 20:40] LABS: Glucose Point of Care 109 mg/dL (70-110)
[2020-01-05 23:52] LABS: Glucose Point of Care 116 mg/dL (70-110)
[2020-01-06] VITALS (7 sets, daily range): BP systolic 104–135; BP diastolic 51–74; PULSE 61–78; RESP 16–20; TEMP 36.4–36.8; O2SAT 94–98
[2020-01-06 05:31] LABS: Basophils % 0.5 %; Eosinophils # 0.2 10^3/uL (0.0-0.8); Eosinophils % 1.9 %; Hematocrit 27.2 % (37.0-47.0); Hemoglobin 9.1 g/dL (11.5-15.3); Lymphocytes # 1.6 10^3/uL (0.8-4.8); Lymphocytes % 17.7 %; Mean Corpuscular HGB Conc 33.5 g/dL (30.0-36.0); Mean Corpuscular Hemoglobin 36.3 pg (28.0-34.0); Mean Corpuscular Volume 108.4 fL (81-99); Mean Platelet Volume 11.7 fL (7.4-10.4); Monocytes # 0.7 10^3/uL (0.2-0.9); Monocytes % 8.5 %; Neutrophils # 6.2 10^3/uL (1.8-7.7); Neutrophils % 71.2 %; Nucleated Red Blood Cells % 0 %; Platelet Count 75 10^3/cmm (130-400); Red Blood Count 2.51 10^6/uL (4.1-5.3); Red Cell Distribution Width 16.8 % (12.1-15.1); White Blood Count 8.8 10^3/uL (4.0-10.0)
[2020-01-06 05:50] LABS: Alanine Aminotransferase 76 U/L (0-33); Alkaline Phosphatase 332 IU/L (35-105); Anion Gap 19.5 (5-19); Aspartate Amino Transferase 124 U/L (0-32); Calcium 9.7 mg/dL (8.5-10.5); Carbon Dioxide 21 mmol/L (22-29); Chloride 96 mmol/L (98-107); Globulin 3.8 g/dL (1.3-4.6); Glucose 114 mg/dL (65-115); Osmolality Calculated 275 mOsm/kg (285-295); Potassium 4.5 mmol/L (3.5-5.1); Sodium 132 mmol/L (136-145); Total Bilirubin 4.2 mg/dL (0.15-1.2); Total Protein 6.8 g/dL (6.6-8.7)
[2020-01-06 05:53] LABS: Blood Urea Nitrogen 82 mg/dL (8-23)
[2020-01-06 06:51] LABS: Glucose Point of Care 119 mg/dL (70-110)
[2020-01-06] MEDS: dextrose 5%-sod chloride 0.45% 1,000 ML 75 ML IV (10:02)
--- NOTE | 2020-01-06 10:28 | PC.CHAP ---
Pastoral Care Encounter/Spiritual Assessment Type of Contact [] Declined global regulatory lead visit [] Patient/Family/Request visit [] Outpatient visit [] Follow-up visit [] Physician referral [] Code/Alert [x] Routine visit [] Staff referral [] Actively dying [x] Patient sleeping [] Family support [] [] Out of room [] Palliative care [] [] Receiving care in room [] Pre-surgical visit [] Trauma [] Long length of stay [] ICU visit [] Other: Relational/Emotional Strength [] Patient feels connected with others/family/visitors/staff [] Distress [] Loneliness/isolation [] Abandonment Spirituality of Patient [] Person of Argenis [] Attends Rastafari of their Argenis [] Believes in Prayer [] Reads Bible or Sabianism materials [] There are Spiritual issues to be addressed Plant And Equipment Worker Interventions [x] Prayer [] Active listening [] Non-anxious presence [] Spiritual/emotional support [] Crisis/trauma care [] Spiritual counseling [] Bereavement support [] Provided bereavement packet [] Provided Bible/devotional materials [] Provided toy/stuffed animal, coloring book to patient or family member [] Provided Communion [] Anointing/Hagerman [] Salvation [x] Completed spiritual assessment [] Other: Impact on Illness or Injury [] Angry [] Fearful [] Anxious [] Often cries [] Exhaustion [] Unable to work [] Unable to attend anabaptism [] Unable to walk/stand [] Unable to read [] Unable to drive [] Unable to eat/drink [] Unable to sleep [] Unable to be with family [] Patient intubated [] Other: Summary Time spent with patient
[2020-01-06 11:50] LABS: Glucose Point of Care 121 mg/dL (70-110)
--- NOTE | 2020-01-06 12:10 | P.PN_ITS ---
Subjective Subjective: Interval history: Remains lethargic, had 800 mL urine output overnight, hemodynamically stable, 1 BM so far. Improving LFTs, stable BG, stable Hg. Remains obtunded, minimally responsive to name and intermittently moves her extremities, otherwise remains unresponsive. DPOA paperwork faxed to us and placed in paper chart, ok with CPR, DNI. Medications: Reviewed: Yes Medication Review Details: Active Medications Generic Name Dose Route Start Last Admin Trade Name Freq PRN Reason Stop Dose Admin Acetaminophen 650 mg 01/05/20 17:22 Tylenol PO Q6H PRN Mild/Mod Pain Or Temp >/= 101 Dextrose 25 ml 01/05/20 17:22 D50w IVP ONCE PRN hypoglycemia prot ocol Protocol Dextrose 50 ml 01/05/20 17:22 D50w IVP PRN PRN hypoglycemia prot ocol Protocol Duloxetine HCl 30 mg 01/06/20 09:00 01/06/20 12:07 Cymbalta PO Not Given DAILY KYLE Glucagon 1 mg 01/05/20 17:22 Glucagen IM ONCE PRN Adult Acute Hypog lycemia Prot. Protocol Dextrose 500 mls @ 100 mls /hr 01/05/20 17:22 D5w IV ONCE PRN Adult Acute Hypog lycemia Prot Protocol Dextrose/Sodium Ch loride 1,000 mls @ 75 ml s/hr 01/05/20 17:22 01/06/20 10:02 Dextrose 5%-Sod Chloride 0.45% IV 75 mls/hr .[id number] KYLE Administration Ceftriaxone Sodium 1,000 mg/ 50 mls @ 100 mls/ hr 01/05/20 18:00 01/05/20 18:13 Sodium Chloride IV 100 mls/hr Q24H KYLE Administration Protocol Lactobacillus Acid ophilus 1 tab 01/06/20 09:00 01/06/20 12:08 Floranex PO Not Given DAILY KYLE Ondansetron HCl 4 mg 01/05/20 17:22 Zofran IVP Q8H PRN vomiting, or N/V if npo Pantoprazole Sodiu m 40 mg 01/05/20 18:00 01/06/20 12:09 Protonix PO Not Given BID KYLE Rifaximin 550 mg 01/05/20 18:00 01/06/20 12:10 Xifaxan PO Not Given BID KYLE Protocol Vitamin D 2,000 unit 01/06/20 09:00 01/06/20 11:18 Vitamin D3 PO Not Given DAILY [facility] No Known Allergies Allergy (Verified 11/24/19 18:05) Vitals/I&O/Wt Last Vital Signs Temp 97.5 F L 01/06/20 11:20 Pulse 61 01/06/20 11:20 Resp 16 01/06/20 11:20 BP 112/67 01/06/20 11:20 Pulse Ox 98 01/06/20 11:20 01/05/20 01/06/20 01/06/20 22:59 06:59 14:59 Intake Total 1000 / 1000 Output Total 0 / 0 800 / 800 Balance 0 / 0 -800 / -800 1000 / 1000 Weight last 48 hrs Weight 113.443 kg Weight 112.491 kg Physical Exam Const: COMMON NORMALS: no acute distress and patient oriented x3 GENERAL APPEARANCE: lethargic and other (restless); not cooperative NUTRITIONAL APPEARANCE: obese morbidly obese ORIENTATION/CONSCIOUSNESS: Yes lethargic OTHER: -non-verbal, moans and groans HENMT: COMMON NORMALS: normocephalic and atraumatic HEAD & SCALP: normocephalic and atraumatic MOUTH: moist mucous membranes abnormal (dried bilious-looking residue on R side of mouth) Details: cracked Eye: COMMON NORMALS: Equal, round and reactive pupils present and conjunctivae normal CONJUNCTIVA: Yes conjunctivae normal SCLERA: scleral abnormal Laterality of scleral abnormality: positive bilateral scleral icterus (mild) PUPIL: Yes Equal, round and reactive pupils present Neck/C-Spine: COMMON NORMALS: full ROM GENERAL: Yes normal visual inspection and Yes trachea midline OTHER: -short, thick neck Chest: CHEST: Yes Symmetrical chest wall rise Resp: COMMON NORMALS: normal respiratory effort, No retractions, No use of ac cessory muscles and clear to auscultation bilaterally EFFORT & INSPECTION: Yes symmetric chest movement and No tachypneic AUSCULTATION: clear to auscultation bilaterally OTHER: -on RA Cardio: COMMON NORMALS: regular rate, regular rhythm, S1 normal heart sound present, S2 normal heart sound present and No murmurs present (Cardio) RATE: regular rate RHYTHM: regular rhythm HEART SOUNDS: S1 normal heart sound present and S2 normal heart sound present GI: COMMON NORMALS: Normal to inspection, nondistended, normoactive bowel sounds present, Soft to palpation and non-tender INSPECTION: Yes central obesity PALPATION: Yes Soft to palpation : BLADDER/KIDNEY EXAM: Yes catheter in place Catheter type (Female): urethral Extremity: COMMON NORMALS: normal to inspection, full ROM, no clubbing, cyanosis or edema and no pedal edema NARRATIVE EXTREMITY EXAM: -compression stockings on Neuro: COMMON NORMALS: patient oriented x3, moves all extremities, no focal motor deficits, no sensory deficits noted and gait normal SENSORIUM/ORIENTATION: Yes lethargic and Yes obtunded Psych: COMMON NORMALS: mental status grossly normal, Normal thought process present, cooperative, normal affect and speech normal SPEECH: Yes normal sp eech THOUGHT PROCESS: Normal thought process present OTHER: -unable to assess due to obtundation Skin: COMMON NORMALS: no rashes or lesions noted, no jaundice, no petechiae and no mottling GENERAL SKIN EXAM: no rashes or lesions noted Urinary Catheter Management^: Anne: Cath Placed During This Visit: yes Urethral Indwelling: Yes Reason for Continuing Indwelling Catheter: Accurate Measurement of Urinary Output in Critically Ill Patients Urinary Catheter Date of Insertion: 01/05/20 Urinary Catheter Time of Insertion: 15:50 Data : 01/06/20 05:23 01/06/20 05:23 A&P Assessment and plan (1) Acute hepatic encephalopathy: -currently obtunded -significant ammonia elevation-149; on lactulose enemas pending improved mental status -trend ammonia -fall, aspiration precautions; bedrest for now, bed alarm, may need 1:1 monitoring if safety risk -Anne catheter placed in ED, monitor urine output, assess daily for removal Status: Acute (2) Cirrhosis: -has known liver cirrhosis complicated by portal hypertension and varices -Abdomen does not appear distended at this time though she does have generalized anasarca -Etiology of liver cirrhosis likely BRIDGES as she is a non-smoker and has no history of alcohol abuse -Follows up with Dr. Powers -Noted improvement in LFTs, continue to trend -On lactulose, rifaximin; hold diuretics at this time secondary to risk of hypotension -Coags noted, INR-1.33 Status: Chronic Qualifiers: Ascites presence: without ascites Hepatic cirrhosis type: unspecified hepatic cirrhosis Qualified Code(s): K74.60 - Unspecified cirrhosis of liver (3) UTI (urinary tract infection): -UA indicative of infection which could be contributing to altered mental status -f/u urine cx -on Ceftriaxone -has Anne catheter Status: Acute Qualifiers: Hematuria presence: without hematuria Urinary tract infection type: acute cystitis Qualified Code(s): N30.00 - Acute cystitis without hematuria (4) Hyponatremia: -on IVF hydration -trend Na Status: Acute (5) Diastolic CHF: -does not appear to be decompensated at this time -Echo (08/2019): EF=60%, no RWMA, GIDD. -Follows up with Dr. Dukes -Gentle IV fluid hydration to avoid risk of fluid overload Status: Chronic Qualifiers: Heart failure chronicity: chronic Qualified Code(s): I50.32 - Chronic diastolic (congestive) heart failure (6) Acute kidney injury: -MARK on CKD stage 5; baseline Cr was previously around 1.3-1.5; has been trending up to around 2 -Monitor renal function, avoid nephrotoxins, renally dose meds -On IVF hydration Status: Acute (7) Thrombocytopenia: -likely secondary to underlying liver cirrhosis -no antiplatelets or anticoagulation due to bleeding risk; monitor for bleeding -baseline platelet count is around 70s; continue to trend -noted elevated free kappa and lamda light chains on SPEP; UPEP with no M spike noted. Following up with Dr. Aguila Status: Chronic (8) Anemia: -chronic macrocytic anemia -baseline Hg is 9-10 -continue to trend Hg; stable so far -has been f/u with Dr. Aguila Status: Chronic Qualifiers: Anemia type: unspecified type Qualified Code(s): D64.9 - Anemia, unspecified (9) Hypertension: -normotensive currently, continue to monitor vital signs -hold diuretics as NPO to avoid hypotension Status: Chronic Qualifiers: Hypertension type: essential hypertension Qualified Code(s): I10 - Essential (primary) hypertension (10) Hyperlipidemia: Status: Chronic Qualifiers: Hyperlipidemia type: mixed hyperlipidemia Qualified Code(s): E78.2 - Mixed hyperlipidemia Additional A&P Information -Morbid obesity: BMI-44 kg/m2 -non-ambulatory at baseline -GERD -NOLA -OA, fibromyalgia, gout -Anxiety/depression -GI ppx with PPI -DVT ppx with SCDs, no AC due to bleeding risk -Dispo: return to [facility]; DPOA in niece Carolina Lopez -Code status: ok with CPR, DNI, paperwork in chart Attestations Medical Necessity Statement*: Patient requires hospitalization for continued treatment of hepatic encephalopathy, mental status remains impaired. Time Spent in Patient Care: 16 - 35 minutes (>than 50% of time spent in counselling and/or direct pt care on unit) . Coding Level of Care Code Acute Transaction Advisory Services Manager for g Fwd Exam Comprehensive Diagnoses Acute hepatic encephalopathy K72.00 Cirrhosis K74.60 Ascites presence: without ascites Hepatic cirrhosis type: unspecified hepatic cirrhosis UTI (urinary tract infection) N30.00 Hematuria presence: without hematuria Urinary tract infection type: acute cystitis Hyponatremia E87.1 Diastolic CHF I50.32 Heart failure chronicity: chronic Acute kidney injury N17.9 Thrombocytopenia D69.6 Anemia D64.9 Anemia type: unspecified type Hypertension I10 Hypertension type: essential hypertension Hyperlipidemia E78.2 Hyperlipidemia type: mixed hyperlipidemia
--- NOTE | 2020-01-06 14:26 | PC.NURSE ---
writer producer spoke with patient's family Carolina. she said she is patient's DPOA and her cell number is [phone], home number is [phone], her [employer] cell number is [phone] and work number is [phone]. She said she would like a call as soon as patient is awake and coherent. She has Life insurance beneficiary paperwork and DNR paperwork that needs to be signed.
--- NOTE | 2020-01-06 14:52 | PC.NURSE ---
called Mayco Alves [phone] and request copy of DPOA be faxed to us.
[2020-01-06] MEDS: lactulose oral liq 20 gm/30 mL UDC 200 GM PR ×2 (15:32→21:13)
[2020-01-06 16:29] LABS: Glucose Point of Care 120 mg/dL (70-110)
[2020-01-06] MEDS: cefTRIAXone 1,000 MG in sodium chloride 0.9% (plus) 50 ML 100 MG IV (18:44)
[2020-01-06 21:06] LABS: Glucose Point of Care 112 mg/dL (70-110)
[2020-01-07] MEDS: dextrose 5%-sod chloride 0.45% 1,000 ML 75 ML IV ×2 (00:47→16:08)
[2020-01-07] MEDS: lactulose oral liq 20 gm/30 mL UDC 200 GM PR ×2 (02:42→22:55)
[2020-01-07 03:18] VITALS: BP 110/66; PULSE 63; RESP 20; TEMP 36.7; O2SAT 94
[2020-01-07 06:07] LABS: Basophils # 0.1 10^3/uL (0.0-0.1); Basophils % 0.6 %; Eosinophils # 0.1 10^3/uL (0.0-0.8); Eosinophils % 1.4 %; Hematocrit 26.7 % (37.0-47.0); Hemoglobin 8.3 g/dL (11.5-15.3); Lymphocytes # 1.3 10^3/uL (0.8-4.8); Lymphocytes % 16.2 %; Mean Corpuscular HGB Conc 31.1 g/dL (30.0-36.0); Mean Corpuscular Hemoglobin 35.6 pg (28.0-34.0); Mean Corpuscular Volume 114.6 fL (81-99); Mean Platelet Volume 11.1 fL (7.4-10.4); Monocytes # 0.9 10^3/uL (0.2-0.9); Neutrophils # 5.5 10^3/uL (1.8-7.7); Neutrophils % 70.4 %; Nucleated Red Blood Cells % 0 %; Platelet Count 56 10^3/cmm (130-400); Red Blood Count 2.33 10^6/uL (4.1-5.3); Red Cell Distribution Width 16.9 % (12.1-15.1); White Blood Count 7.9 10^3/uL (4.0-10.0)
[2020-01-07 06:29] LABS: Ammonia 47 umol/L (11-51)
[2020-01-07 06:33] LABS: Glucose Point of Care 106 mg/dL (70-110)
[2020-01-07 08:00] VITALS: BP 107/69; PULSE 62; RESP 16; TEMP 36.4; O2SAT 96
[2020-01-07 08:06] LABS: Alanine Aminotransferase 67 U/L (0-33); Albumin Level 2.8 g/dL (3.5-5.2); Alkaline Phosphatase 302 IU/L (35-105); Anion Gap 17.1 (5-19); Blood Urea Nitrogen 76 mg/dL (8-23); Calcium 9.7 mg/dL (8.5-10.5); Carbon Dioxide 21 mmol/L (22-29); Chloride 100 mmol/L (98-107); Globulin 3.8 g/dL (1.3-4.6); Glucose 113 mg/dL (65-115); Osmolality Calculated 278 mOsm/kg (285-295); Potassium 4.1 mmol/L (3.5-5.1); Sodium 134 mmol/L (136-145); Total Protein 6.6 g/dL (6.6-8.7)
[2020-01-07 08:23] LABS: Aspartate Amino Transferase 108 U/L (0-32)
[2020-01-07 11:55] VITALS: BP 126/53; PULSE 68; RESP 18; TEMP 36.3; O2SAT 95
[2020-01-07 12:05] LABS: Glucose Point of Care 113 mg/dL (70-110)
--- NOTE | 2020-01-07 13:27 | PM.PN ---
Subjective Subjective: Interval history: Had 650 mL urine output overnight, labs noted with improving LFTs, ammonia wnl, improving renal function, reportedly has had 2 BMs so far today, prelim urine cx growing Enterococcus species. Afebrile, hemodynamically stable. Mild improvement in mental status. More easily arouseable but minimally verbal and disoriented. Unable to take PO meds. Medications: Reviewed: Yes Medication Review Details: Active Medications Generic Name Dose Route Start Last Admin Trade Name Freq PRN Reason Stop Dose Admin Acetaminophen 650 mg 01/05/20 17:22 Tylenol PO Q6H PRN Mild/Mod Pain Or Temp >/= 101 Dextrose 25 ml 01/05/20 17:22 D50w IVP ONCE PRN hypoglycemia prot ocol Protocol Dextrose 50 ml 01/05/20 17:22 D50w IVP PRN PRN hypoglycemia prot ocol Protocol Duloxetine HCl 30 mg 01/06/20 09:00 01/07/20 08:44 Cymbalta PO Not Given DAILY KYLE Glucagon 1 mg 01/05/20 17:22 Glucagen IM ONCE PRN Adult Acute Hypog lycemia Prot. Protocol Dextrose 500 mls @ 100 mls /hr 01/05/20 17:22 D5w IV ONCE PRN Adult Acute Hypog lycemia Prot Protocol Dextrose/Sodium Ch loride 1,000 mls @ 75 ml s/hr 01/05/20 17:22 01/07/20 00:47 Dextrose 5%-Sod Chloride 0.45% IV 75 mls/hr .[id number] KYLE Administration Ciprofloxacin/Dext maria luz 400 mg in 200 mls @ 200 mls/hr 01/07/20 13:30 Cipro IV Q12H KYLE Protocol Lactobacillus Acid ophilus 1 tab 01/06/20 09:00 01/07/20 08:44 Floranex PO Not Given DAILY KYLE Lactulose 200 gm 01/06/20 12:15 01/07/20 08:44 Constulose TX Not Given Q6H KYLE Ondansetron HCl 4 mg 01/05/20 17:22 Zofran IVP Q8H PRN vomiting, or N/V if npo Pantoprazole Sodiu m 40 mg 01/05/20 18:00 01/07/20 08:44 Protonix PO Not Given BID KYLE Rifaximin 550 mg 01/05/20 18:00 01/07/20 08:44 Xifaxan PO Not Given BID [facility] Protocol Vitamin D 2,000 unit 01/06/20 09:00 01/07/20 08:44 Vitamin D3 PO Not Given DAILY [facility] No Known Allergies Allergy (Verified 11/24/19 18:05) Vitals/I&O/Wt Last Vital Signs Temp 97.4 F L 01/07/20 11:55 Pulse 68 01/07/20 11:55 Resp 18 01/07/20 11:55 BP 126/53 01/07/20 11:55 Pulse Ox 95 01/07/20 11:55 01/06/20 01/07/20 01/07/20 22:59 06:59 14:59 Intake Total 1000 / 2000 Output Total 650 / 650 Balance 350 / 1350 Weight last 48 hrs Weight 119.748 kg Weight 113.443 kg Weight 112.491 kg Physical Exam Const: COMMON NORMALS: no acute distress GENERAL APPEARANCE: lethargic and other (restless); not cooperative NUTRITIONAL APPEARANCE: obese morbidly obese ORIENTATION/CONSCIOUSNESS: Yes lethargic OTHER: -non-verbal, moans and groans HENMT: COMMON NORMALS: normocephalic and atraumatic HEAD & SCALP: normocephalic and atraumatic MOUTH: moist mucous membranes abnormal Details: cracked Eye: COMMON NORMALS: Equal, round and reactive pupils present and conjunctivae normal CONJUNCTIVA: Yes conjunctivae normal SCLERA: scleral abnormal Laterality of scleral abnormality: positive bilateral scleral icterus (mild) PUPIL: Yes Equal, round and reactive pupils present Neck/C-Spine: COMMON NORMALS: full ROM GENERAL: Yes normal visual inspection and Yes trachea midline OTHER: -short, thick neck Chest: CHEST: Yes Symmetrical chest wall rise Resp: COMMON NORMALS: normal respiratory effort, No retractions, No use of accessory muscles and clear to auscultation bilaterally EFFORT & INSPECTION: Yes symmetric chest movement and No tachypneic AUSCULTATION: clear to auscultation bilaterally OTHER: -on RA Cardio: COMMON NORMALS: regular rate, regular rhythm, S1 normal heart sound present, S2 normal heart sound present and No murmurs present (Cardio) RATE: regular rate RHYTHM: regular rhythm HEART SOUNDS: S1 normal heart sound present and S2 normal heart sound present GI: COMMON NORMALS: Normal to inspection, nondistended, normoactive bowel sounds present, Soft to palpation and non-tender INSPECTION: Yes central obesity PALPATION: Yes Soft to palpation : BLADDER/KIDNEY EXAM: Yes catheter in place Catheter type (Female): urethral Extremity: COMMON NORMALS: normal to inspection, full ROM, no clubbing, cyanosis or edema and no pedal edema Neuro: SENSORIUM/ORIENTATION: Yes Orientation impaired and Yes lethargic Psych: OTHER: -unable to assess due to disorientation Skin: COMMON NORMALS: no rashes or lesions noted, no jaundice, no petechiae and no mottling GENERAL SKIN EXAM: no rashes or lesions noted Urinary Catheter Management^: Anne: Cath Placed During This Visit: yes Urethral Indwelling: Yes Reason for Continuing Indwelling Catheter: Acute Urinary Retention or Obstruction Urinary Catheter Date of Insertion: 01/05/20 Urinary Catheter Time of Insertion: 15:50 Data : 01/07/20 05:50 01/07/20 07:12 Micro: Microbiology 01/05/20 15:51 Urine Culture - Preliminary Urine,Clean Catch Enterococcus species A&P Assessment and plan (1) Acute hepatic encephalopathy: -currently obtunded though mental status has improved somewhat today -significant ammonia elevation-149; on lactulose enemas pending improved mental status -ammonia normalized (47) -fall, aspiration precautions; bedrest for now, bed alarm, may need 1:1 monitoring if safety risk -Anne catheter placed in ED, monitor urine output, assess daily for removal Status: Acute (2) Cirrhosis: -has known liver cirrhosis complicated by portal hypertension and varices -Abdomen does not appear distended at this time though she does have generalized anasarca -Etiology of liver cirrhosis likely BRIDGES as she is a non-smoker and has no history of alcohol abuse -Follows up with Dr. Powers -Noted improvement in LFTs, continue to trend -On lactulose, rifaximin; hold diuretics at this time secondary to risk of hypotension -Coags noted, INR-1.33 Status: Chronic Qualifiers: Ascites presence: without ascites Hepatic cirrhosis type: unspecified hepatic cirrhosis Qualified Code(s): K74.60 - Unspecified cirrhosis of liver (3) UTI (urinary tract infection): -UA indicative of infection which could be contributing to altered mental status -urine cx: Enterococcus species; pending ID & sensitivity -has been on Ceftriaxone; will switch to Ciprofloxacin (keep IV as still unable to take PO) -has Anne catheter Status: Acute Qualifiers: Hematuria presence: without hematuria Urinary tract infection type: acute cystitis Qualified Code(s): N30.00 - Acute cystitis without hematuria (4) Hyponatremia: -on IVF hydration -trend Na; improving Status: Acute (5) Diastolic CHF: -does not appear to be decompensated at this time -Echo (08/2019): EF=60%, no RWMA, GIDD. -Follows up with Dr. Dukes -Gentle IV fluid hydration to avoid risk of fluid overload Status: Chronic Qualifiers: Heart failure chronicity: chronic Qualified Code(s): I50.32 - Chronic diastolic (congestive) heart failure (6) Acute kidney injury: -MARK on CKD stage 5; baseline Cr was previously around 1.3-1.5; has been trending up to around 2 -Monitor renal function, avoid nephrotoxins, renally dose meds -On IVF hydration Status: Acute (7) Thrombocytopenia: -likely secondary to underlying liver cirrhosis -no antiplatelets or anticoagulation due to bleeding risk; monitor for bleeding -baseline platelet count is around 70s; continue to trend -noted elevated free kappa and lamda light chains on SPEP; UPEP with no M spike noted. Following up with Dr. Aguila Status: Chronic (8) Anemia: -chronic macrocytic anemia -baseline Hg is 9-10 -continue to trend Hg; stable so far -has been f/u with Dr. Aguila Status: Chronic Qualifiers: Anemia type: unspecified type Qualified Code(s): D64.9 - Anemia, unspecified (9) Hypertension: -normotensive currently, continue to monitor vital signs -hold diuretics as NPO to avoid hypotension Status: Chronic Qualifiers: Hypertension type: essential hypertension Qualified Code(s): I10 - Essential (primary) hypertension (10) Hyperlipidemia: Status: Chronic Qualifiers: Hyperlipidemia type: mixed hyperlipidemia Qualified Code(s): E78.2 - Mixed hyperlipidemia Additional A&P Information -Morbid obesity: BMI-47 kg/m2 -non-ambulatory at baseline -GERD -NOLA -OA, fibromyalgia, gout -Anxiety/depression -GI ppx with PPI -DVT ppx with SCDs, no AC due to bleeding risk -Dispo: return to [facility]; DPOA in niece Carolina Lopez -Code status: ok with CPR, DNI, paperwork in chart Attestations Medical Necessity Statement*: Patient requires hospitalization for continued management of hepatic encephalopathy pending improvement in mental status and continued treatment of UTI. Time Spent in Patient Care: 16 - 35 minutes (>than 50% of time spent in counselling and/or direct pt care on unit). 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
[2020-01-07 15:28] VITALS: BP 121/73; PULSE 82; RESP 14; TEMP 36.4; O2SAT 96
[2020-01-07] MEDS: ciprofloxacin 400 MG/200 ML PREMIX 200 MG IV (16:09)
[2020-01-07 17:06] LABS: Glucose Point of Care 123 mg/dL (70-110)
[2020-01-07 20:00] VITALS: BP 132/92; PULSE 72; RESP 18; TEMP 36.5; O2SAT 99
[2020-01-07 21:04] LABS: Glucose Point of Care 107 mg/dL (70-110)
[2020-01-08] VITALS (8 sets, daily range): BP systolic 107–142; BP diastolic 51–79; PULSE 69–76; RESP 15–18; TEMP 36.4–37.2; O2SAT 96–100
[2020-01-08] MEDS: ciprofloxacin 400 MG/200 ML PREMIX 200 MG IV ×2 (04:09→15:12)
[2020-01-08 05:37] LABS: Basophils % 0.3 %; Eosinophils # 0.1 10^3/uL (0.0-0.8); Hematocrit 27.1 % (37.0-47.0); Lymphocytes # 1.1 10^3/uL (0.8-4.8); Lymphocytes % 12.3 %; Mean Corpuscular HGB Conc 33.2 g/dL (30.0-36.0); Mean Corpuscular Hemoglobin 36.3 pg (28.0-34.0); Mean Corpuscular Volume 109.3 fL (81-99); Mean Platelet Volume 11.3 fL (7.4-10.4); Monocytes # 0.8 10^3/uL (0.2-0.9); Monocytes % 8.9 %; Neutrophils # 6.9 10^3/uL (1.8-7.7); Neutrophils % 77.3 %; Nucleated Red Blood Cells % 0 %; Platelet Count 66 10^3/cmm (130-400); Red Blood Count 2.48 10^6/uL (4.1-5.3)
[2020-01-08 05:53] LABS: Ammonia 46 umol/L (11-51)
[2020-01-08 05:56] LABS: Alanine Aminotransferase 66 U/L (0-33); Albumin Level 2.9 g/dL (3.5-5.2); Alkaline Phosphatase 305 IU/L (35-105); Anion Gap 17.9 (5-19); Aspartate Amino Transferase 98 U/L (0-32); Blood Urea Nitrogen 70 mg/dL (8-23); Calcium 9.6 mg/dL (8.5-10.5); Carbon Dioxide 22 mmol/L (22-29); Chloride 99 mmol/L (98-107); Globulin 3.9 g/dL (1.3-4.6); Glucose 145 mg/dL (65-115); Osmolality Calculated 282 mOsm/kg (285-295); Potassium 3.9 mmol/L (3.5-5.1); Sodium 135 mmol/L (136-145); Total Bilirubin 4.6 mg/dL (0.15-1.2); Total Protein 6.8 g/dL (6.6-8.7)
[2020-01-08] MEDS: dextrose 5%-sod chloride 0.45% 1,000 ML 75 ML IV ×2 (06:09→17:50)
[2020-01-08 06:40] LABS: Glucose Point of Care 121 mg/dL (70-110)
[2020-01-08] MEDS: lactulose oral liq 20 gm/30 mL UDC 200 GM PR (10:04)
--- NOTE | 2020-01-08 10:27 | PC.SOCIAL ---
Pg 2 IMM Explained to pt Pg 2 IMM. Pt verbally understands. Provided pt a copy & left on pt's bedside table. Signed, dated, & timed a copy & placed in pt's chart.
[2020-01-08 11:59] LABS: Glucose Point of Care 131 mg/dL (70-110)
--- NOTE | 2020-01-08 11:59 | PM.PN ---
Subjective Subjective: Interval history: AM labs noted, ammonia remains wnl, stable LFTs and renal function, some improvement in Hg. Had 750 mL urine output and 2 BMs overnight and 2 so far this shift. Hemodynamically stable, afebrile. She is easily arousable but when asked to give her date of or where she is, she is unable to do so. Stated that she would like some water but when cup with straw brought to her lips she is unable to figure out how to drink the water. I have called contacts per information in chart but have been unsuccessful at reaching family members. Spiked improvement in ammonia, hemodynamic stability, IV fluid hydration, patient's mental status continues to be quite impaired. Medications: Reviewed: Yes Medication Review Details: Active Medications Generic Name Dose Route Start Last Admin Trade Name Freq PRN Reason Stop Dose Admin Acetaminophen 650 mg 01/05/20 17:22 Tylenol PO Q6H PRN Mild/Mod Pain Or Temp >/= 101 Dextrose 25 ml 01/05/20 17:22 D50w IVP ONCE PRN hypoglycemia prot ocol Protocol Dextrose 50 ml 01/05/20 17:22 D50w IVP PRN PRN hypoglycemia prot ocol Protocol Duloxetine HCl 30 mg 01/06/20 09:00 01/08/20 07:50 Cymbalta PO Not Given DAILY KYLE Glucagon 1 mg 01/05/20 17:22 Glucagen IM ONCE PRN Adult Acute Hypog lycemia Prot. Protocol Dextrose 500 mls @ 100 mls /hr 01/05/20 17:22 D5w IV ONCE PRN Adult Acute Hypog lycemia Prot Protocol Dextrose/Sodium Ch loride 1,000 mls @ 75 ml s/hr 01/05/20 17:22 01/08/20 06:09 Dextrose 5%-Sod Chloride 0.45% IV 75 mls/hr .[id number] KYLE Administration Ciprofloxacin/Dext maria luz 400 mg in 200 mls @ 200 mls/hr 01/07/20 13:30 01/08/20 07:51 Cipro IV Infused Q12H KYLE Infusion Protocol Lactobacillus Acid ophilus 1 tab 01/06/20 09:00 01/08/20 07:51 Floranex PO Not Given DAILY KYLE Lactulose 200 gm 01/06/20 12:15 01/08/20 10:04 Constulose NH 200 gm Q6H KYLE Administration Ondansetron HCl 4 mg 01/05/20 17:22 Zofran IVP Q8H PRN vomiting, or N/V if npo Pantoprazole Sodiu m 40 mg 01/05/20 18:00 01/08/20 07:51 Protonix PO Not Given BID [facility] Rifaximin 550 mg 01/05/20 18:00 01/08/20 07:51 Xifaxan PO Not Given BID [facility] Protocol Vitamin D 2,000 unit 01/06/20 09:00 01/08/20 07:50 Vitamin D3 PO Not Given DAILY [facility] No Known Allergies Allergy (Verified 11/24/19 18:05) Vitals/I&O/Wt Last Vital Signs Temp 98.2 F 01/08/20 11:56 Pulse 69 01/08/20 11:56 Resp 18 01/08/20 11:56 BP 107/63 01/08/20 11:56 Pulse Ox 96 01/08/20 11:56 01/07/20 01/08/20 01/08/20 22:59 06:59 14:59 Intake Total 200 / 1200 1000 / 2200 200 / 200 Output Total 750 / 750 Balance 200 / 1200 250 / 1450 200 / 200 Weight last 48 hrs Weight 119.295 kg Weight 120.656 kg Weight 119.748 kg Physical Exam Const: COMMON NORMALS: no acute distress GENERAL APPEARANCE: lethargic and other (restless); not cooperative NUTRITIONAL APPEARANCE: obese morbidly obese ORIENTATION/CONSCIOUSNESS: Yes lethargic OTHER: -non-verbal, moans and groans HENMT: COMMON NORMALS: normocephalic and atraumatic HEAD & SCALP: normocephalic and atraumatic MOUTH: moist mucous membranes abnormal Details: cracked Eye: COMMON NORMALS: Equal, round and reactive pupils present and conjunctivae normal CONJUNCTIVA: Yes conjunctivae normal SCLERA: scleral abnormal Laterality of scleral abnormality: positive bilateral scleral icterus (mild) PUPIL: Yes Equal, round and reactive pupils present Neck/C-Spine: COMMON NORMALS: full ROM GENERAL: Yes normal visual inspection and Yes trachea midline OTHER: -short, thick neck Chest: CHEST: Yes Symmetrical chest wall rise Resp: COMMON NORMALS: normal respiratory effort, No retractions, No use of accessory muscles and clear to auscultation bilaterally EFFORT & INSPECTION: Yes symmetric chest movement and No tachypneic AUSCULTATION: clear to auscultation bilaterally OTHER: -on RA Cardio: COMMON NORMALS: regular rate, regular rhythm, S1 normal heart sound present, S2 normal heart sound present and No murmurs present (Cardio) RATE: regular rate RHYTHM: regular rhythm HEART SOUNDS: S1 normal heart sound present and S2 normal heart sound present GI: COMMON NORMALS: Normal to inspection, nondistended, normoactive bowel sounds present, Soft to palpation and non-tender INSPECTION: Yes central obesity PALPATION: Yes Soft to palpation : BLADDER/KIDNEY EXAM: Yes catheter in place Catheter type (Female): urethral Extremity: COMMON NORMALS: normal to inspection, full ROM, no clubbing, cyanosis or edema and no pedal edema Neuro: COMMON NORMALS: moves all extremities, no focal motor deficits, no sensory deficits noted and gait normal SENSORIUM/ORIENTATION: Yes Orientation impaired and Yes lethargic Psych: COMMON NORMALS: mental status grossly normal, Normal thought process present, cooperative, normal affect and speech normal SPEECH: Yes normal speech THOUGHT PROCESS: Normal thought process present OTHER: -unable to assess due to disorientation Skin: COMMON NORMALS: no rashes or lesions noted, no jaundice, no petechiae and no mottling GENERAL SKIN EXAM: no rashes or lesions noted Urinary Catheter Management^: Anne: Cath Placed During This Visit: yes Urethral Indwelling: Yes Reason for Continuing Indwelling Catheter: Acute Urinary Retention or Obstruction Urinary Catheter Date of Insertion: 01/05/20 Urinary Catheter Time of Insertion: 15:50 Data : 01/08/20 05:15 01/08/20 05:15 Micro: Microbiology 01/05/20 15:51 Urine Culture - Preliminary Urine,Clean Catch Enterococcus species A&P Assessment and plan (1) Acute hepatic encephalopathy: -mental status continues to be quite impaired, arouses fairly easily but remains disoriented and otherwise lethargic despite improvement in labs including normalization of ammonia. Her baseline mental status seems to deteriorate further with each episode -significant ammonia elevation-149; on lactulose enemas pending improved mental status -ammonia normalized (46) -fall, aspiration precautions; bedrest for now, bed alarm, may need 1:1 monitoring if safety risk -Anne catheter placed in ED, monitor urine output, assess daily for removal Status: Acute (2) Cirrhosis: -has known liver cirrhosis complicated by portal hypertension and varices -Abdomen does not appear distended at this time though she does have generalized anasarca -Etiology of liver cirrhosis likely BRIDGES as she is a non-smoker and has no history of alcohol abuse -Follows up with Dr. Powers -Noted improvement in LFTs, continue to trend -On lactulose, rifaximin; hold diuretics at this time secondary to risk of hypotension -Coags noted, INR-1.33 Status: Chronic Qualifiers: Ascites presence: without ascites Hepatic cirrhosis type: unspecified hepatic cirrhosis Qualified Code(s): K74.60 - Unspecified cirrhosis of liver (3) UTI (urinary tract infection): -UA indicative of infection which could be contributing to altered mental status -urine cx: Enterococcus species; pending ID & sensitivity -off Ceftriaxone; on Ciprofloxacin (keep IV as still unable to take PO) -has Anne catheter Status: Acute Qualifiers: Hematuria presence: without hematuria Urinary tract infection type: acute cystitis Qualified Code(s): N30.00 - Acute cystitis without hematuria (4) Hyponatremia: -on IVF hydration -trend Na; improving Status: Acute (5) Diastolic CHF: -does not appear to be decompensated at this time -Echo (08/2019): EF=60%, no RWMA, GIDD. -Follows up with Dr. Dueks -Gentle IV fluid hydration to avoid risk of fluid overload Status: Chronic Qualifiers: Heart failure chronicity: chronic Qualified Code(s): I50.32 - Chronic diastolic (congestive) heart failure (6) Acute kidney injury: -MARK on CKD stage 5; baseline Cr was previously around 1.3-1.5; has been trending up to around 2 -continue to monitor renal function, avoid nephrotoxins, renally dose meds -On IVF hydration -worsening renal function could also be contributing to acute mental status change Status: Acute (7) Thrombocytopenia: -likely secondary to underlying liver cirrhosis -no antiplatelets or anticoagulation due to bleeding risk; monitor for bleeding -baseline platelet count is around 70s; continue to trend -noted elevated free kappa and lamda light chains on SPEP; UPEP with no M spike noted. Following up with Dr. Aguila Status: Chronic (8) Anemia: -chronic macrocytic anemia -baseline Hg is 9-10 -continue to trend Hg; stable so far -has been f/u with Dr. Mingo Status: Chronic Qualifiers: Anemia type: unspecified type Qualified Code(s): D64.9 - Anemia, unspecified (9) Hypertension: -normotensive currently, continue to monitor vital signs -hold diuretics as NPO to avoid hypotension Status: Chronic Qualifiers: Hypertension type: essential hypertension Qualified Code(s): I10 - Essential (primary) hypertension (10) Hyperlipidemia: Status: Chronic Qualifiers: Hyperlipidemia type: mixed hyperlipidemia Qualified Code(s): E78.2 - Mixed hyperlipidemia Additional A&P Information -Morbid obesity: BMI-47 kg/m2 -non-ambulatory at baseline -GERD -NOLA -OA, fibromyalgia, gout -Anxiety/depression -GI ppx with PPI -DVT ppx with SCDs, no AC due to bleeding risk -Dispo: return to [facility]; DPOA in niece [place] Lopez. Attempted to call patient family members per contact information in chart but was unsuccessful. Will need to discuss goals of care in light of minimal improvement in mental status despite medical management. -Code status: ok with CPR, DNI, paperwork in chart Attestations Medical Necessity Statement*: Patient requires hospitalization for continued management of altered mental status, MARK; pending improvement in mental status and renal function. Time Spent in Patient Care: 16 - 35 minutes (>than 50% of time spent in counselling and/or direct pt care on unit). 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
[2020-01-08 16:55] LABS: Glucose Point of Care 146 mg/dL (70-110)
[2020-01-08] MEDS: linezolid premix 600 MG/300 ML PREMIX 300 MG IV (18:19)
[2020-01-08 21:13] LABS: Glucose Point of Care 125 mg/dL (70-110)
[2020-01-09] VITALS (8 sets, daily range): BP systolic 104–142; BP diastolic 61–79; PULSE 69–78; RESP 15–18; TEMP 36.3–36.8; O2SAT 96–100
[2020-01-09] MEDS: lactulose oral liq 20 gm/30 mL UDC 200 GM PR (03:17)
[2020-01-09 06:19] LABS: Basophils % 0.2 %; Eosinophils # 0.1 10^3/uL (0.0-0.8); Eosinophils % 1.2 %; Hematocrit 28.8 % (37.0-47.0); Hemoglobin 9.2 g/dL (11.5-15.3); Lymphocytes # 0.9 10^3/uL (0.8-4.8); Lymphocytes % 9.4 %; Mean Corpuscular HGB Conc 31.9 g/dL (30.0-36.0); Mean Corpuscular Hemoglobin 35.9 pg (28.0-34.0); Mean Corpuscular Volume 112.5 fL (81-99); Mean Platelet Volume 11.7 fL (7.4-10.4); Monocytes % 10.7 %; Neutrophils # 7.4 10^3/uL (1.8-7.7); Neutrophils % 78.1 %; Nucleated Red Blood Cells % 0 %; Platelet Count 53 10^3/cmm (130-400); Red Blood Count 2.56 10^6/uL (4.1-5.3); Red Cell Distribution Width 16.7 % (12.1-15.1); White Blood Count 9.5 10^3/uL (4.0-10.0)
[2020-01-09 06:36] LABS: Anion Gap 18.2 (5-19); Blood Urea Nitrogen 63 mg/dL (8-23); Calcium 9.3 mg/dL (8.5-10.5); Carbon Dioxide 20 mmol/L (22-29); Chloride 98 mmol/L (98-107); Glucose 136 mg/dL (65-115); Osmolality Calculated 275 mOsm/kg (285-295); Potassium 4.2 mmol/L (3.5-5.1); Sodium 132 mmol/L (136-145)
[2020-01-09 06:56] LABS: Glucose Point of Care 141 mg/dL (70-110)
[2020-01-09] MEDS: dextrose 5%-sod chloride 0.45% 1,000 ML 75 ML IV (07:55)
[2020-01-09] MEDS: linezolid premix 600 MG/300 ML PREMIX 300 MG IV ×2 (08:37→22:00)
[2020-01-09] MEDS: cholecalciferol (vitamin D3) 1,000 unit Tablet 2000 UNIT PO (08:38)
[2020-01-09] MEDS: lactobacillus 1 Tablet 1 TAB PO (08:38)
[2020-01-09] MEDS: pantoprazole DR 40 mg Tablet PO ×2 (08:38→17:37)
[2020-01-09] MEDS: duloxetine 30 mg Capsule PO (08:39)
--- NOTE | 2020-01-09 09:43 | PC.NURSE ---
Patient was given her sips of water and held in mouth. Had to give verbal cues to swallow. Patient given her medication and she attempted to swallow and choked and spit up her medications. Dr. Lane was notified of patient's difficulty
--- NOTE | 2020-01-09 10:02 | PM.PN ---
Subjective Subjective: Interval history: Patient seen and examined this morning, easily arousable though remains confused and disoriented. Had 2 bowel movements overnight and to 50 mL urine output. Hemoglobin and platelet count remain stable, renal function is gradually improving. Remains on contact isolation precautions secondary to VRE enterococcus faecium. Per nurse report was unable to take her oral medications this morning so we will continue IV antibiotic coverage. Spoke to her niece Carolina Lopez and updated her on patient's clinical condition, discussed CODE STATUS which is DNR/DNI, she expresses her desire for patient to be kept comfortable and is agreeable to continued IV antibiotic treatment to see if UTI treatment will improve mental status some. She does understand that this may be the patient's new baseline and reiterates that patient would not desire aggressive care otherwise. Medications: Reviewed: Yes Medication Review Details: Active Medications Generic Name Dose Route Start Last Admin Trade Name Freq PRN Reason Stop Dose Admin Acetaminophen 650 mg 01/05/20 17:22 Tylenol PO Q6H PRN Mild/Mod Pain Or Temp >/= 101 Dextrose 25 ml 01/05/20 17:22 D50w IVP ONCE PRN hypoglycemia prot ocol Protocol Dextrose 50 ml 01/05/20 17:22 D50w IVP PRN PRN hypoglycemia prot ocol Protocol Duloxetine HCl 30 mg 01/06/20 09:00 01/09/20 08:39 Cymbalta PO 30 mg DAILY KYLE Administration Glucagon 1 mg 01/05/20 17:22 Glucagen IM ONCE PRN Adult Acute Hypog lycemia Prot. Protocol Dextrose 500 mls @ 100 mls /hr 01/05/20 17:22 D5w IV ONCE PRN Adult Acute Hypog lycemia Prot Protocol Dextrose/Sodium Ch loride 1,000 mls @ 50 ml s/hr 01/05/20 17:22 01/09/20 07:55 Dextrose 5%-Sod Chloride 0.45% IV 75 mls/hr .Q20H KYLE Administration Linezolid 600 mg in 300 mls @ 300 mls/hr 01/08/20 19:00 01/09/20 08:37 Zyvox Premix IV 300 mls/hr Q12H KYLE Administration Protocol Lactobacillus Acid ophilus 1 tab 01/06/20 09:00 01/09/20 08:38 Floranex PO 1 tab DAILY KYLE Administration Lactulose 200 gm 01/06/20 12:15 01/09/20 03:17 Constulose OH 200 gm Q6H KYLE Administration Ondansetron HCl 4 mg 01/05/20 17:22 Zofran IVP Q8H PRN vomiting, or N/V if npo Pantoprazole Sodiu m 40 mg 01/05/20 18:00 01/09/20 08:38 Protonix PO 40 mg BID KYLE Administration Rifaximin 550 mg 01/05/20 18:00 01/09/20 08:38 Xifaxan PO 550 mg BID KYLE Administration Protocol Vitamin D 2,000 unit 01/06/20 09:00 01/09/20 08:38 Vitamin D3 PO 2,000 unit DAILY KYLE Administration No Known Allergies Allergy (Verified 11/24/19 18:05) Vitals/I&O/Wt Last Vital Signs Temp 98.3 F 01/09/20 08:00 Pulse 72 01/09/20 08:00 Resp 18 01/09/20 08:00 BP 126/61 01/09/20 08:00 Pulse Ox 98 01/09/20 08:00 01/08/20 01/09/20 01/09/20 22:59 06:59 14:59 Intake Total 1673.75 / 1873.75 942.5 / 942.5 Output Total 400 / 400 250 / 650 Balance 1273.75 / 1473.75 -250 / 1223.75 942.5 / 942.5 Weight last 48 hrs Weight 119.295 kg Weight 120.656 kg Physical Exam Const: COMMON NORMALS: no acute distress GENERAL APPEARANCE: lethargic and other (restless); not cooperative NUTRITIONAL APPEARANCE: obese morbidly obese ORIENTATION/CONSCIOUSNESS: Yes lethargic OTHER: -non-verbal, moans and groans HENMT: COMMON NORMALS: normocephalic and atraumatic HEAD & SCALP: normocephalic and atraumatic MOUTH: moist mucous membranes abnormal Details: cracked Eye: COMMON NORMALS: Equal, round and reactive pupils present and conjunctivae normal CONJUNCTIVA: Yes conjunctivae normal SCLERA: scleral abnormal Laterality of scleral abnormality: positive bilateral scleral icterus (mild) PUPIL: Yes Equal, round and reactive pupils present Neck/C-Spine: COMMON NORMALS: full ROM GENERAL: Yes normal visual inspection and Yes trachea midline OTHER: -short, thick neck Chest: CHEST: Yes Symmetrical chest wall rise Resp: COMMON NORMALS: normal respiratory effort, No retractions, No use of accessory muscles and clear to auscultation bilaterally EFFORT & INSPECTION: Yes symmetric chest movement and No tachypneic AUSCULTATION: clear to auscultation bilaterally OTHER: -on RA Cardio: COMMON NORMALS: regular rate, regular rhythm, S1 normal heart sound present, S2 normal heart sound present and No murmurs present (Cardio) RATE: regular rate RHYTHM: regular rhythm HEART SOUNDS: S1 normal heart sound present and S2 normal heart sound present GI: COMMON NORMALS: Normal to inspection, nondistended, normoactive bowel sounds present, Soft to palpation and non-tender INSPECTION: Yes central obesity PALPATION: Yes Soft to palpation : BLADDER/KIDNEY EXAM: Yes catheter in place Catheter type (Female): urethral Extremity: COMMON NORMALS: normal to inspection, full ROM, no clubbing, cyanosis or edema and no pedal edema Neuro: COMMON NORMALS: moves all extremities, no focal motor deficits, no sensory deficits noted and gait normal SENSORIUM/ORIENTATION: Yes Orientation impaired and Yes lethargic Psych: OTHER: -unable to assess due to disorientation Skin: COMMON NORMALS: no rashes or lesions noted, no jaundice, no petechiae and no mottling GENERAL SKIN EXAM: no rashes or lesions noted Urinary Catheter Management^: Anne: Cath Placed During This Visit: yes Urethral Indwelling: Yes Reason for Continuing Indwelling Catheter: Acute Urinary Retention or Obstruction Urinary Catheter Date of Insertion: 01/05/20 Urinary Catheter Time of Insertion: 15:50 Data : 01/09/20 06:03 01/09/20 06:03 Micro: Microbiology 01/05/20 15:51 Urine Culture - Preliminary Urine,Clean Catch Enterococcus faecium vre A&P Assessment and plan (1) Altered mental status: -initially attributed to hepatic encephalopathy due to noted hyperammonemia secondary to underlying liver cirrhosis as noted below. However with normalization of ammonia she remains delirious making it more likely that her altered mental status on presentation is multifactorial in light of hepatic encephalopathy and UTI -I suspect that her baseline mental status will continue to gradually deteriorate with repeated episodes of either infection or hepatic encephalopathy moving forward. Her recovery typically takes a little longer compared to the previous episode and her baseline decreases per my discussion with family -Unable to have oral intake safely so continued IV fluid hydration and IV antibiotic treatment -fall/aspiration precautions Status: Acute Qualifiers: Altered mental status type: delirium Qualified Code(s): R41.0 - Disorientation, unspecified (2) Acute hepatic encephalopathy: -mental status continues to be quite impaired, arouses fairly easily but remains disoriented and otherwise lethargic despite improvement in labs including normalization of ammonia. Her baseline mental status seems to deteriorate further with each episode -significant ammonia elevation-149; on lactulose enemas pending improved mental status -ammonia normalized (46) -fall, aspiration precautions; bedrest for now, bed alarm, may need 1:1 monitoring if safety risk -Anne catheter placed in ED, monitor urine output, assess daily for removal Status: Resolved (3) Cirrhosis: -has known liver cirrhosis complicated by portal hypertension and varices -Abdomen does not appear distended at this time though she does have generalized anasarca -Etiology of liver cirrhosis likely BRIDGES as she is a non-smoker and has no history of alcohol abuse -Follows up with Dr. Powers -Noted improvement in LFTs, continue to trend -On lactulose, rifaximin; hold diuretics at this time secondary to risk of hypotension -Coags noted, INR-1.33 Status: Chronic Qualifiers: Ascites presence: without ascites Hepatic cirrhosis type: unspecified hepatic cirrhosis Qualified Code(s): K74.60 - Unspecified cirrhosis of liver (4) UTI (urinary tract infection): -UA indicative of infection which could be contributing to altered mental status -urine cx: VRE Enterococcus faecium; sensitivity noted -off Ceftriaxone and Ciprofloxacin; on Linezolid per sensitivity profile (keep IV as still unable to take PO)-day 2/7 -has Anne catheter; due to immobility, delirium will keep this in place though may increase risk of infection as benefits outweigh risks Status: Acute Qualifiers: Urinary tract infection type: acute cystitis Hematuria presence: without hematuria Qualified Code(s): N30.00 - Acute cystitis without hematuria (5) Hyponatremia: -on IVF hydration -trend Na; improving Status: Acute (6) Diastolic CHF: -does not appear to be decompensated at this time -Echo (08/2019): EF=60%, no RWMA, GIDD. -Follows up with Dr. Dukes -Gentle IV fluid hydration to avoid risk of fluid overload Status: Chronic Qualifiers: Heart failure chronicity: chronic Qualified Code(s): I50.32 - Chronic diastolic (congestive) heart failure (7) Acute kidney injury: -MARK on CKD stage 5; baseline Cr was previously around 1.3-1.5; has been trending up to around 2 -continue to monitor renal function, avoid nephrotoxins, renally dose meds -On IVF hydration -worsening renal function could also be contributing to acute mental status change; renal function is gradually improving Status: Acute (8) Thrombocytopenia: -likely secondary to underlying liver cirrhosis -no antiplatelets or anticoagulation due to bleeding risk; monitor for bleeding -baseline platelet count is around 70s; continue to trend; has been stable so far -noted elevated free kappa and lamda light chains on SPEP; UPEP with no M spike noted. Following up with Dr. Aguila Status: Chronic (9) Anemia: -chronic macrocytic anemia -baseline Hg is 9-10 -continue to trend Hg; stable so far -has been f/u with Dr. Aguila Status: Chronic Qualifiers: Anemia type: unspecified type Qualified Code(s): D64.9 - Anemia, unspecified (10) Hypertension: -normotensive currently, continue to monitor vital signs -hold diuretics as NPO to avoid hypotension Status: Chronic Qualifiers: Hypertension type: essential hypertension Qualified Code(s): I10 - Essential (primary) hypertension (11) Hyperlipidemia: Status: Chronic Qualifiers: Hyperlipidemia type: mixed hyperlipidemia Qualified Code(s): E78.2 - Mixed hyperlipidemia Additional A&P Information -Morbid obesity: BMI-47 kg/m2 -non-ambulatory at baseline -GERD -NOLA -OA, fibromyalgia, gout -Anxiety/depression -GI ppx with PPI -DVT ppx with SCDs, no AC due to bleeding risk -Dispo: return to [facility]; DPOA in niece Carolina Lopez. Had a goals of care discussion with her and she understands patient's clinical status and has previously discussed comfort measures at [place] just prior to this hospitalization. She wants patient to be kept comfortable and trial of UTI treatment with antibiotics to see if mentation will improve before transition back to [facility]. -Code status: DNR/DNI -guarded prognosis Attestations Medical Necessity Statement*: Patient requires hospitalization for continued management of altered mental status, IV antibiotic treatment for UTI, IVF hydration; pending improvement in mental status. Time Spent in Patient Care: 16 - 35 minutes (>than 50% of time spent in counselling and/or direct pt care on unit). Coding Level of Care Code Acute Director Of Field Coordination for Chg Fwd Diagnoses Altered mental status R41.0 Altered mental status type: delirium Acute hepatic encephalopathy K72.00 Cirrhosis K74.60 Ascites presence: without ascites Hepatic cirrhosis type: unspecified hepatic cirrhosis UTI (urinary tract infection) N30.00 Urinary tract infection type: acute cystitis Hematuria presence: without hematuria Hyponatremia E87.1 Diastolic CHF I50.32 Heart failure chronicity: chronic Acute kidney injury N17.9 Thrombocytopenia D69.6 Anemia D64.9 Anemia type: unspecified type Hypertension I10 Hypertension type: essential hypertension Hyperlipidemia E78.2 Hyperlipidemia type: mixed hyperlipidemia
[2020-01-09 12:35] LABS: Glucose Point of Care 140 mg/dL (70-110)
[2020-01-09 16:31] LABS: Glucose Point of Care 123 mg/dL (70-110)
--- NOTE | 2020-01-09 17:12 | PC.NURSE ---
Clear Liquid Diet - Assisted patient with Jello and Dt. Sprite. Patient sitting in upright position tolerated jello and dt. sprite with no problems noted. Nurse Bruno Linares RN of progress. Patient remains in upright position. Will reposition in 30-60 min. MARQUISE FERNANDEZ
[2020-01-09 21:05] LABS: Glucose Point of Care 123 mg/dL (70-110)
[2020-01-10] VITALS: BP 104/67; BP 163/60; PULSE 69; PULSE 70; RESP 18; TEMP 36.3; TEMP 36.4; O2SAT 98
[2020-01-10] MEDS: lactulose oral liq 20 gm/30 mL UDC PO ×4 (03:21→21:49)
--- NOTE | 2020-01-10 03:21 | PC.NURSE ---
pt was much more responsive tonight and was able to answer my questions. She knew name and situation but was unaware she was in [place] at [facility]. D/t report on dayshift patient took pils crushed in applesauce very well so i notified the doctor of this, ammonia wnl and mental status having improved to start lactulose PO. Patient did wonderfully with PO lactulose and sips of water to wash it down.
[2020-01-10 04:00] VITALS: BP 103/51; BP 163/60; PULSE 68; PULSE 70; RESP 18; TEMP 36.3; TEMP 36.4; O2SAT 97
[2020-01-10 06:47] LABS: Glucose Point of Care 117 mg/dL (70-110)
[2020-01-10 07:44] VITALS: BP 110/66; PULSE 76; RESP 18; TEMP 36.9; O2SAT 95
[2020-01-10 08:25] LABS: Alanine Aminotransferase 70 U/L (0-33); Albumin Level 2.8 g/dL (3.5-5.2); Alkaline Phosphatase 313 IU/L (35-105); Aspartate Amino Transferase 118 U/L (0-32); Blood Urea Nitrogen 70 mg/dL (8-23); Calcium 10.2 mg/dL (8.5-10.5); Carbon Dioxide 20 mmol/L (22-29); Chloride 97 mmol/L (98-107); Globulin 4.3 g/dL (1.3-4.6); Glucose 131 mg/dL (65-115); Osmolality Calculated 273 mOsm/kg (285-295); Sodium 131 mmol/L (136-145); Total Bilirubin 4.4 mg/dL (0.15-1.2); Total Protein 7.1 g/dL (6.6-8.7)
--- NOTE | 2020-01-10 08:50 | P.PN_ITS ---
Subjective Subjective: Interval history: Per overnight nursing report, patient did well, able to take PO and was more alert. AM labs noted, stable LFTs, had 200 mL urine output. Hemodynamically stable, afebrile, on RA. Able to tell me that she is in [place], recalls her correctly. Medications: Reviewed: Yes Medication Review Details: Active Medications Generic Name Dose Route Start Last Admin Trade Name Freq PRN Reason Stop Dose Admin Acetaminophen 650 mg 01/05/20 17:22 Tylenol PO Q6H PRN Mild/Mod Pain Or Temp >/= 101 Dextrose 25 ml 01/05/20 17:22 D50w IVP ONCE PRN hypoglycemia prot ocol Protocol Dextrose 50 ml 01/05/20 17:22 D50w IVP PRN PRN hypoglycemia prot ocol Protocol Duloxetine HCl 30 mg 01/06/20 09:00 01/09/20 08:39 Cymbalta PO 30 mg DAILY KYLE Administration Furosemide 20 mg 01/10/20 08:50 Lasix PO BID@08,16 KYLE Glucagon 1 mg 01/05/20 17:22 Glucagen IM ONCE PRN Adult Acute Hypog lycemia Prot. Protocol Dextrose 500 mls @ 100 mls /hr 01/05/20 17:22 D5w IV ONCE PRN Adult Acute Hypog lycemia Prot Protocol Dextrose/Sodium Ch loride 1,000 mls @ 50 ml s/hr 01/05/20 17:22 01/09/20 07:55 Dextrose 5%-Sod Chloride 0.45% IV 75 mls/hr .Q20H KYLE Administration Albumin Human 12.5 gm in 250 ml s @ 300 mls/hr 01/10/20 08:49 Albumin IV 01/10/20 09:38 ONCE ONE Lactobacillus Acid ophilus 1 tab 01/06/20 09:00 01/09/20 08:38 Floranex PO 1 tab DAILY KYLE Administration Lactulose 20 gm 01/10/20 03:00 01/10/20 03:21 Constulose PO 20 gm TID KYLE Administration Linezolid 600 mg 01/10/20 09:00 Zyvox Tablet PO Q12H KYLE Protocol Ondansetron HCl 4 mg 01/05/20 17:22 Zofran IVP Q8H PRN vomiting, or N/V if npo Pantoprazole Sodiu m 40 mg 01/05/20 18:00 01/09/20 17:37 Protonix PO 40 mg BID KYLE Administration Rifaximin 550 mg 01/05/20 18:00 01/09/20 17:37 Xifaxan PO 550 mg BID KYLE Administration Protocol Vitamin D 2,000 unit 01/06/20 09:00 01/09/20 08:38 Vitamin D3 PO 2,000 unit DAILY KYLE Administration No Known Allergies Allergy (Verified 11/24/19 18:05) Vitals/I&O/Wt Last Vital Signs Temp 98.4 F 01/10/20 07:44 Pulse 76 01/10/20 07:44 Resp 18 01/10/20 07:44 BP 110/66 01/10/20 07:44 Pulse Ox 95 01/10/20 07:44 01/09/20 01/10/20 01/10/20 22:59 06:59 14:59 Intake Total 360 / 1602.5 100 / 1702.5 120 / 120 Output Total 276 / 276 200 / 476 Balance 84 / 1326.5 -100 / 1226.5 120 / 120 Weight last 48 hrs Weight 123.037 kg Weight 119.295 kg Physical Exam Const: COMMON NORMALS: no acute distress and alert GENERAL APPEARANCE: cooperative, lethargic (mildly) and other (restless) NUTRITIONAL APPEARANCE: obese morbidly obese ORIENTATION/CONSCIOUSNESS: Yes lethargic (mildly) OTHER: -easily arousable HENMT: COMMON NORMALS: normocephalic and atraumatic HEAD & SCALP: norm ocephalic and atraumatic MOUTH: moist mucous membranes abnormal Details: cracked Eye: COMMON NORMALS: Equal, round and reactive pupils present and conjunctivae normal CONJUNCTIVA: Yes conjunctivae normal SCLERA: scleral abnormal Laterality of scleral abnormality: positive bilateral scleral icterus (mild) PUPIL: Yes Equal, round and reactive pupils present Neck/C-Spine: COMMON NORMALS: full ROM GENERAL: Yes normal visual inspection and Yes trachea midline OTHER: -short, thick neck Chest: CHEST: Yes Symmetrical chest wall rise Resp: COMMON NORMALS: normal respiratory effort, No retractions, No use of ac cessory muscles and clear to auscultation bilaterally EFFORT & INSPECTION: Yes symmetric chest movement and No tachypneic AUSCULTATION: clear to auscultation bilaterally OTHER: -on RA Cardio: COMMON NORMALS: regular rate, regular rhythm, S1 normal heart sound present, S2 normal heart sound present and No murmurs present (Cardio) RATE: regular rate RHYTHM: regular rhythm HEART SOUNDS: S1 normal heart sound present and S2 normal heart sound present GI: COMMON NORMALS: Normal to inspection, nondistended, normoactive bowel sounds present, Soft to palpation and non-tender INSPECTION: Yes central obesity PALPATION: Yes Soft to palpation : BLADDER/KIDNEY EXAM: Yes catheter in place Catheter type (Female): urethral Extremity: COMMON NORMALS: normal to inspection, full ROM, no clubbing, cyanosis or edema and no pedal edema Neuro: COMMON NORMALS: moves all extremities, no focal motor deficits, no sensory deficits noted and gait normal SENSORIUM/ORIENTATION: Yes alert, Yes Orientation impaired and Yes lethargic (mildly) Psych: COMMON NORMALS: mental status grossly normal, Normal thought process present, cooperative, normal affect and speech normal SPEECH: Yes normal speech THOUGHT PROCESS: Normal thought process present Skin: COMMON NORMALS: no rashes or lesions noted, no jaundice, no petechiae and no mottling GENERAL SKIN EXAM: no rashes or lesions noted Urinary Catheter Management^: Anne: Cath Placed During This Visit: yes Urethral Indwelling: Yes Reason for Continuing Indwelling Catheter: Acute Urinary Retention or Obstruction Urinary Catheter Date of Insertion: 01/05/20 Urinary Catheter Time of Insertion: 15:50 Data : 01/09/20 06:03 01/10/20 07:58 Micro: Microbiology 01/05/20 15:51 Urine Culture - Final Urine,Clean Catch Enterococcus faecium vre Enterococcus durans hirae A&P Assessment and plan (1) Altered mental status: -initially attributed to hepatic encephalopathy due to noted hyperammonemia secondary to underlying liver cirrhosis as noted below. However with normalization of ammonia she remains delirious making it more likely that her altered mental status on presentation is multifactorial in light of hepatic encephalopathy and UTI -I suspect that her baseline mental status will continue to gradually deteriorate with repeated episodes of either infection or hepatic encephalopathy moving forward. Her recovery typically takes a little longer compared to the previous episode and her baseline decreases per my discussion with family -Mental status has improved, increased oral intake so will d/c IVF and switch to PO antibiotic treatment -fall/aspiration precautions Status: Acute Qualifiers: Altered mental status type: delirium Qualified Code(s): R41.0 - Disorientation, unspecified (2) Acute hepatic encephalopathy: -mental status continues to be quite impaired, arouses fairly easily but remains disoriented and otherwise lethargic despite improvement in labs including normalization of ammonia. Her baseline mental status seems to deteriorate further with each episode -significant ammonia elevation (149) initially, now normalized; switch to lactulose PO -fall, aspiration precautions; bedrest for now, bed alarm, has not needed 1:1 monitoring -Anne catheter placed in ED, monitor urine output, assess daily for removal Status: Resolved (3) Cirrhosis: -has known liver cirrhosis complicated by portal hypertension and varices -Abdomen does not appear distended at this time though she does have generalized anasarca -Etiology of liver cirrhosis likely BRIDGES as she is a non-smoker and has no history of alcohol abuse -Follows up with Dr. Powers -Noted improvement in LFTs, continue to trend -On lactulose, rifaximin; resume diuretics -Coags noted, INR-1.33 Status: Chronic Qualifiers: Ascites presence: without ascites Hepatic cirrhosis type: unspecified hepatic cirrhosis Qualified Code(s): K74.60 - Unspecified cirrhosis of liver (4) UTI (urinary tract infection): -UA indicative of infection which could be contributing to altered mental status -urine cx: VRE Enterococcus faecium; sensitivity noted -off Ceftriaxone and Ciprofloxacin; on Linezolid per sensitivity profile (switch to PO)-day 3/7 -has Anne catheter; may consider removal as mental status has improved Status: Acute Qualifiers: Hematuria presence: without hematuria Urinary tract infection type: acute cystitis Qualified Code(s): N30.00 - Acute cystitis without hematuria (5) Hyponatremia: -d/c IVF; encourage oral hydration -trend Na; improving Status: Acute (6) Diastolic CHF: -does not appear to be decompensated at this time -Echo (08/2019): EF=60%, no RWMA, GIDD. -Follows up with Dr. Dukes -Gentle IV fluid hydration to avoid risk of fluid overload; resume diuretics Status: Chronic Qualifiers: Heart failure chronicity: chronic Qualified Code(s): I50.32 - Chronic diastolic (congestive) heart failure (7) Acute kidney injury: -MARK on CKD stage 5; baseline Cr was previously around 1.3-1.5; has been trending up to around 2 -continue to monitor renal function, avoid nephrotoxins, renally dose meds -On IVF hydration -worsening renal function could also be contributing to acute mental status change; renal function is gradually improving Status: Acute (8) Thrombocytopenia: -likely secondary to underlying liver cirrhosis -no antiplatelets or anticoagulation due to bleeding risk; monitor for bleeding -baseline platelet count is around 70s; continue to trend; has been stable so far -noted elevated free kappa and lamda light chains on SPEP; UPEP with no M spike noted. Following up with Dr. Aguila Status: Chronic (9) Anemia: -chronic macrocytic anemia -baseline Hg is 9-10 -continue to trend Hg; stable so far -has been f/u with Dr. Aguila Status: Chronic Qualifiers: Anemia type: unspecified type Qualified Code(s): D64.9 - Anemia, unspecified (10) Hypertension: -normotensive currently, continue to monitor vital signs -resume diuretics Status: Chronic Qualifiers: Hypertension type: essential hypertension Qualified Code(s): I10 - Essential (primary) hypertension (11) Hyperlipidemia: Status: Chronic Qualifiers: Hyperlipidemia type: mixed hyperlipidemia Qualified Code(s): E78.2 - Mixed hyperlipidemia Additional A&P Information -Morbid obesity: BMI-48 kg/m2 -non-ambulatory at baseline -GERD -NOLA -OA, fibromyalgia, gout -Anxiety/depression -GI ppx with PPI -DVT ppx with SCDs, no AC due to bleeding risk -Dispo: return to [facility]; DPOA in niece Carolina Lopez. Had a goals of care discussion with her and she understands patient's clinical status and has previously discussed comfort measures at [place] just prior to this hospitalization. She wants patient to be kept comfortable and trial of UTI treatment with antibiotics to see if mentation will improve before transition back to [facility]. -Code status: DNR/DNI Attestations Medical Necessity Statement*: Patient requires hospitalization for continued antibiotic treatment and with noted improvement in mental status, has been transitioned to oral intake. Time Spent in Patient Care: 16 - 35 minutes (>than 50% of time spent in counselling and/or direct pt care on unit) . Coding Level of Care Code Acute Pocket Maker for g Fwd Exam Comprehensive Diagnoses Altered mental status R41.0 Altered mental status type: delirium Acute hepatic encephalopathy K72.00 Cirrhosis K74.60 Ascites presence: without ascites Hepatic cirrhosis type: unspecified hepatic cirrhosis UTI (urinary tract infection) N30.00 Hematuria presence: without hematuria Urinary tract infection type: acute cystitis Hyponatremia E87.1 Diastolic CHF I50.32 Heart failure chronicity: chronic Acute kidney injury N17.9 Thrombocytopenia D69.6 Anemia D64.9 Anemia type: unspecified type Hypertension I10 Hypertension type: essential hypertension Hyperlipidemia E78.2 Hyperlipidemia type: mixed hyperlipidemia
[2020-01-10] MEDS: FUROsemide 20 mg Tablet PO ×2 (09:04→15:31)
[2020-01-10] MEDS: cholecalciferol (vitamin D3) 1,000 unit Tablet 2000 UNIT PO (09:04)
[2020-01-10] MEDS: duloxetine 30 mg Capsule PO (09:04)
[2020-01-10] MEDS: lactobacillus 1 Tablet 1 TAB PO (09:04)
[2020-01-10] MEDS: linezolid 600 mg Tablet PO ×2 (09:19→21:49)
[2020-01-10 10:44] LABS: Glucose Point of Care 164 mg/dL (70-110)
[2020-01-10 10:59] VITALS: BP 112/64; PULSE 76; RESP 22; TEMP 37.1; O2SAT 95
[2020-01-10] MEDS: albumin 12.5 GM/50 ML VIAL IV (11:13)
--- NOTE | 2020-01-10 13:05 | PC.SOCIAL ---
*IMM* Patient received an important message from [employer]. Copy gave to patient, insurance underwriter sales initials is in the chart.
[2020-01-10 14:55] VITALS: BP 106/64; PULSE 74; RESP 20; TEMP 36.5; O2SAT 97
[2020-01-10 16:25] LABS: Glucose Point of Care 124 mg/dL (70-110)
[2020-01-10] MEDS: pantoprazole DR 40 mg Tablet PO (18:16)
[2020-01-10 20:00] VITALS: BP 111/50; PULSE 73; RESP 20; TEMP 36.6; O2SAT 100
[2020-01-10 21:28] LABS: Glucose Point of Care 117 mg/dL (70-110)
[2020-01-11] VITALS: BP 116/74; PULSE 81; RESP 20; TEMP 36.8; O2SAT 99
[2020-01-11 04:00] VITALS: BP 103/66; PULSE 79; RESP 20; TEMP 36.5; O2SAT 100
[2020-01-11 06:03] LABS: Alanine Aminotransferase 130 U/L (0-33); Albumin Level 2.9 g/dL (3.5-5.2); Alkaline Phosphatase 373 IU/L (35-105); Anion Gap 19.1 (5-19); Aspartate Amino Transferase 272 U/L (0-32); Blood Urea Nitrogen 74 mg/dL (8-23); Calcium 10.6 mg/dL (8.5-10.5); Carbon Dioxide 19 mmol/L (22-29); Chloride 98 mmol/L (98-107); Globulin 4.4 g/dL (1.3-4.6); Glucose 119 mg/dL (65-115); Osmolality Calculated 275 mOsm/kg (285-295); Potassium 4.1 mmol/L (3.5-5.1); Sodium 132 mmol/L (136-145); Total Bilirubin 5.2 mg/dL (0.15-1.2); Total Protein 7.3 g/dL (6.6-8.7)
[2020-01-11 06:09] LABS: Glucose Point of Care 109 mg/dL (70-110)
--- NOTE | 2020-01-11 06:39 | PC.NURSE ---
SHIFT SUMMARY. PT RESTED WELL THROUGHOUT THE NIGHT. Q2T. NO C/O PAIN. LOOSE STOOLS. URINE OUTPUT WAS QUESTIONABLY D/T DIARRHEA. STRAIGHT CATH ONCE AND NEXT PRM BLADDER SCAN AT 0600 SHOWED 57MLS.
[2020-01-11 07:47] VITALS: BP 119/74; PULSE 74; RESP 16; TEMP 36.4; O2SAT 98
[2020-01-11] MEDS: linezolid 600 mg Tablet PO ×2 (08:58→20:22)
[2020-01-11] MEDS: pantoprazole DR 40 mg Tablet PO ×2 (08:58→17:15)
[2020-01-11] MEDS: duloxetine 30 mg Capsule PO (08:58)
[2020-01-11] MEDS: cholecalciferol (vitamin D3) 1,000 unit Tablet 2000 UNIT PO (08:58)
[2020-01-11] MEDS: FUROsemide 20 mg Tablet PO ×2 (08:58→15:34)
[2020-01-11] MEDS: lactulose oral liq 20 gm/30 mL UDC PO ×3 (08:58→20:23)
[2020-01-11] MEDS: lactobacillus 1 Tablet 1 TAB PO (08:58)
[2020-01-11 11:40] VITALS: BP 110/68; PULSE 76; RESP 18; TEMP 36.6; O2SAT 93
[2020-01-11 11:47] LABS: Glucose Point of Care 132 mg/dL (70-110)
[2020-01-11 15:55] VITALS: BP 102/50; PULSE 74; RESP 16; TEMP 36.4; O2SAT 100
--- NOTE | 2020-01-11 16:12 | P.PN_ITS ---
Subjective Subjective: Interval history: poor urine output today, cr worsening, as is liver function Medications: Reviewed: Yes Vitals/I&O/Wt Last Vital Signs Temp 97.5 F L 01/11/20 15:55 Pulse 74 01/11/20 15:55 Resp 16 01/11/20 15:55 BP 102/50 01/11/20 15:55 Pulse Ox 100 01/11/20 15:55 01/11/20 01/11/20 01/11/20 06:59 14:59 22:59 Intake Total 120 / 120 Output Total 0 / 100 Balance 0 / 380 120 / 120 Weight last 48 hrs Weight 123.196 kg Weight 123.037 kg Physical Exam Narrative: EXAM NARRATIVE: GEN: Awake, alert CVS: S1S2 N RS: CTA B/L Abd: Soft, nt/nd , bs+ TICKET MANAGER: no focal neuro deficits Urinary Catheter Management^: Anne: Cath Placed During This Visit: yes, but has since been removed by the nurse Urethral Indwelling: Yes Reason for Continuing Indwelling Catheter: Not indwelling catheter Urinary Catheter Date of Insertion: 01/05/20 Urinary Catheter Time of Insertion: 15:50 Date Urinary Catheter Removed: 01/10/20 Time Urinary Catheter Discontinued: 10:30 Data : 01/09/20 06:03 01/11/20 05:37 A&P Assessment and plan (1) Altered mental status: -initially attributed to hepatic encephalopathy due to noted hyperamm onemia secondary to underlying liver cirrhosis as noted below. However with normalization of ammonia she remains delirious making it more likely that her altered mental status on presentation is multifactorial in light of hepatic encephalopathy and UTI -I suspect that her baseline mental status will continue to gradually deteriorate with repeated episodes of either infection or hepatic encephalopathy moving forward. -fall/aspiration precautions Status: Acute Qualifiers: Altered mental status type: delirium Qualified Code(s): R41.0 - Disorientation, unspecified (2) Acute hepatic encephalopathy: -mental status continues to be quite impaired, arouses fairly easily but remains disoriented and otherwise lethargic despite improvement in labs including normalization of ammonia. Her baseline mental status seems to deteriorate further with each episode -significant ammonia elevation (149) initially, -fall, aspiration precautions; bedrest for now, bed alarm, has not needed 1:1 monitoring -Anne catheter placed in ED, monitor urine output, assess daily for removal Status: Resolved (3) Cirrhosis: -has known liver cirrhosis complicated by portal hypertension and varices -Abdomen does not appear distended at this time though she does have generalized anasarca -Etiology of liver cirrhosis likely BRIDGES as she is a non-smoker and has no history of alcohol abuse -Follows up with Dr. Powers -continue to trend LFTs -On lactulose, rifaximin; -Coags noted, INR-1.33 Status: Chronic Qualifiers: Ascites presence: without ascites Hepatic cirrhosis type: unspecified hepatic cirrhosis Qualified Code(s): K74.60 - Unspecified cirrhosis of liver (4) UTI (urinary tract infection): -UA indicative of infection -urine cx: VRE Enterococcus faecium; sensitivity noted - on Linezolid per sensitivity profile (switch to PO)-day 4- will aim for 5 day course -poor urine output, cr trending up, previous w/up has included serum free light chain assay with elevated free kappa and lambda chains without significant ratio impairment. No M spike on electrophoresis (serum reported under urine) Status: Acute Qualifiers: Urinary tract infection type: acute cystitis Hematuria presence: without hematuria Qualified Code(s): N30.00 - Acute cystitis without hematuria (5) Hyponatremia: -d/c IVF; encourage oral hydration -trend Na; improving Status: Acute (6) Diastolic CHF: -does not appear to be decompensated at this time -Echo (08/2019): EF=60%, no RWMA, GIDD. -Follows up with Dr. Dukes -Gentle IV fluid hydration to avoid risk of fluid overload; resume diuretics Status: Chronic Qualifiers: Heart failure chronicity: chronic Qualified Code(s): I50.32 - Chronic diastolic (congestive) heart failure (7) Acute kidney injury: -MARK on CKD stage 5; baseline Cr was previously around 1.3-1.5; has been trending up -continue to monitor renal function, avoid nephrotoxins, renally dose meds -On IVF hydration -worsening renal function could also be contributing to acute mental status change; renal function is gradually improving Status: Acute (8) Thrombocytopenia: -likely secondary to underlying liver cirrhosis -no antiplatelets or anticoagulation due to bleeding risk; monitor for bleeding -baseline platelet count is around 70s; continue to trend; has been stable so far -noted elevated free kappa and lamda light chains on SPEP; UPEP with no M spike noted. Following up with Dr. Aguila Status: Chronic (9) Anemia: -chronic macrocytic anemia -baseline Hg is 9-10 -continue to trend Hg; stable so far -has been f/u with Dr. Aguila Status: Chronic Qualifiers: Anemia type: unspecified type Qualified Code(s): D64.9 - Anemia, unspecified (10) Hypertension: -normotensive currently, continue to monitor vital signs -resume diuretics Status: Chronic Qualifiers: Hypertension type: essential hypertension Qualified Code(s): I10 - Essential (primary) hypertension (11) Hyperlipidemia: Status: Chronic Qualifiers: Hyperlipidemia type: mixed hyperlipidemia Qualified Code(s): E78.2 - Mixed hyperlipidemia Additional A&P Information -Morbid obesity: BMI-48 kg/m2 -non-ambulatory at baseline -GERD -NOLA -OA, fibromyalgia, gout -Anxiety/depression -GI ppx with PPI -DVT ppx with SCDs, no AC due to bleeding risk -Dispo: return to [facility]; DPOA in niece Carolina Lopez. Had a goals of care discussion with her and she understands patient's clinical status and has previo usly discussed comfort measures at [place] just prior to this hospitalization. She wants patient to be kept comfortable and trial of UTI treatment with antibiotics to see if mentation will improve before transition back to [facility]. -Code status: DNR/DNI Attestations Medical Necessity Statement*: worsening renal function, liver function Coding Level of Care Code Acute Communications Equipment Supervisor for [facility] Fwd Diagnoses Altered mental status R41.0 Altered mental status type: delirium Acute hepatic encephalopathy K72.00 Cirrhosis K74.60 Ascites presence: without ascites Hepatic cirrhosis type: unspecified hepatic cirrhosis UTI (urinary tract infection) N30.00 Urinary tract infection type: acute cystitis Hematuria presence: without hematuria Hyponatremia E87.1 Diastolic CHF I50.32 Heart failure chronicity: chronic Acute kidney injury N17.9 Thrombocytopenia D69.6 Anemia D64.9 Anemia type: unspecified type Hypertension I10 Hypertension type: essential hypertension Hyperlipidemia E78.2 Hyperlipidemia type: mixed hyperlipidemia
[2020-01-11 16:54] LABS: Glucose Point of Care 117 mg/dL (70-110)
[2020-01-11 20:00] VITALS: BP 101/60; PULSE 78; RESP 16; TEMP 36.5; O2SAT 94
[2020-01-11 22:11] LABS: Glucose Point of Care 126 mg/dL (70-110)
[2020-01-12] VITALS: BP 92/57; PULSE 81; RESP 20; TEMP 36.3; O2SAT 98
[2020-01-12 04:00] VITALS: BP 101/61; PULSE 85; RESP 20; TEMP 36.4; O2SAT 97
[2020-01-12 06:04] LABS: Alanine Aminotransferase 126 U/L (0-33); Albumin Level 3.1 g/dL (3.5-5.2); Alkaline Phosphatase 394 IU/L (35-105); Anion Gap 22.2 (5-19); Aspartate Amino Transferase 230 U/L (0-32); Blood Urea Nitrogen 81 mg/dL (8-23); Calcium 10.7 mg/dL (8.5-10.5); Carbon Dioxide 16 mmol/L (22-29); Chloride 100 mmol/L (98-107); Globulin 4.5 g/dL (1.3-4.6); Glucose 113 mg/dL (65-115); Lactate Dehydrogenase 439 U/L (135-214); Osmolality Calculated 279 mOsm/kg (285-295); Potassium 4.2 mmol/L (3.5-5.1); Sodium 134 mmol/L (136-145); Total Bilirubin 4.8 mg/dL (0.15-1.2); Total Protein 7.6 g/dL (6.6-8.7)
[2020-01-12 06:32] LABS: Glucose Point of Care 103 mg/dL (70-110)
[2020-01-12 07:23] VITALS: BP 102/54; PULSE 81; RESP 18; TEMP 35.9; O2SAT 99
[2020-01-12] MEDS: lactobacillus 1 Tablet 1 TAB PO (08:01)
[2020-01-12] MEDS: pantoprazole DR 40 mg Tablet PO ×2 (08:01→17:32)
[2020-01-12] MEDS: duloxetine 30 mg Capsule PO (08:01)
[2020-01-12] MEDS: cholecalciferol (vitamin D3) 1,000 unit Tablet 2000 UNIT PO (08:01)
[2020-01-12] MEDS: lactulose oral liq 20 gm/30 mL UDC PO ×2 (08:02→17:29)
[2020-01-12] MEDS: linezolid 600 mg Tablet PO (08:03)
[2020-01-12] MEDS: FUROsemide 20 mg Tablet PO ×2 (08:03→17:29)
--- NOTE | 2020-01-12 10:28 | PC.SOCIAL ---
IMM Updated Updated pt on Pg 2 IMM. No questions voiced. Provided pt a copy & left on pt's bedside table. Signed, dated, & timed the copy in pt's chart.
[2020-01-12 10:56] LABS: Glucose Point of Care 121 mg/dL (70-110)
[2020-01-12 12:00] VITALS: BP 110/68; PULSE 89; RESP 18; TEMP 37.1
--- NOTE | 2020-01-12 13:43 | PM.PN ---
Subjective Subjective: Interval history: Creatinine continues to trend up, LFTs elevated but stable, T.bili at ~4.5, elevated both direct and indirect fractions. No new complaints, plesant, intermittently confused. Poor urine output, not quantified as otherwise incontinent , multiple BMs per day Medications: Reviewed: Yes Vitals/I&O/Wt Last Vital Signs Temp 98.7 F 01/12/20 12:00 Pulse 89 01/12/20 12:00 Resp 18 01/12/20 12:00 BP 110/68 01/12/20 12:00 Pulse Ox 99 01/12/20 07:23 01/11/20 01/12/20 01/12/20 22:59 06:59 14:59 Intake Total 110 / 230 0 / 230 240 / 240 Balance 110 / 230 0 / 230 240 / 240 Physical Exam Narrative: EXAM NARRATIVE: GEN: Awake, alert , intermittently confused HEENT: Icterus++ CVS: S1S2 N RS: CTA B/L Abd: Soft, mildly distended, BS+ Urinary Catheter Management^: Anne: Cath Placed During This Visit: yes, but has since been removed by the nurse Urethral Indwelling: Yes Reason for Continuing Indwelling Catheter: Not indwelling catheter Urinary Catheter Date of Insertion: 01/05/20 Urinary Catheter Time of Insertion: 15:50 Date Urinary Catheter Removed: 01/10/20 Time Urinary Catheter Discontinued: 10:30 Data : 01/09/20 06:03 01/12/20 04:55 A&P Assessment and plan (1) Altered mental status: -initially attributed to hepatic encephalopathy due to noted hyperammonemia secondary to underlying liver cirrhosis as noted below. However with normalization of ammonia she remains delirious making it more likely that her altered mental status on presentation is multifactorial in light of hepatic encephalopathy and metabolic encephalopathy from UTI. -fall/aspiration precautions Status: Acute Qualifiers: Altered mental status type: delirium Qualified Code(s): R41.0 - Disorientation, unspecified (2) Acute hepatic encephalopathy: -mental status continues to be quite impaired, arouses fairly easily but remains disoriented and otherwise lethargic despite improvement in labs including normalization of ammonia. Her baseline mental status seems to deteriorate further with each episode -significant ammonia elevation (149) initially - cotninue lactulose to avoid getting constipated and precipitating encephalopathy Status: Resolved (3) Cirrhosis: -has known liver cirrhosis complicated by portal hypertension -Abdomen does not appear distended at this time though she does have generalized anasarca -Etiology of liver cirrhosis likely BRIDGES as she is a non-smoker and has no history of alcohol abuse -Follows up with Dr. Powers -On lactulose, rifaximin; Status: Chronic Qualifiers: Ascites presence: without ascites Hepatic cirrhosis type: unspecified hepatic cirrhosis Qualified Code(s): K74.60 - Unspecified cirrhosis of liver (4) UTI (urinary tract infection): -UA indicative of infection -urine cx: VRE Enterococcus faecium; sensitivity noted - on Linezolid per sensitivity profile (switch to PO) s/p 5 days, dicontinue today as completed treatment -poor urine output, cr trending up, previous w/up has included serum free light chain assay with elevated free kappa and lambda chains without significant ratio impairment. No M spike on electrophoresis (serum reported under urine). Likely to be hepatorenal syndrome from end stage liver disease. Status: Acute Qualifiers: Urinary tract infection type: acute cystitis Hematuria presence: without hematuria Qualified Code(s): N30.00 - Acute cystitis without hematuria (5) Hyponatremia: encourage oral hydration Status: Acute (6) Diastolic CHF: -does not appear to be decompensated at this time -Echo (08/2019): EF=60%, no RWMA, GIDD. -Follows up with Dr. Dukes Status: Chronic Qualifiers: Heart failure chronicity: chronic Qualified Code(s): I50.32 - Chronic diastolic (congestive) heart failure (7) Acute kidney injury: -MARK on CKD stage 5; baseline Cr was previously around 1.3-1.5; has been trending up now 3.4 with poor urine output, mostly incontinent - avoid nephrotoxins, renally dose meds Status: Acute (8) Thrombocytopenia: -likely secondary to underlying liver cirrhosis -no antiplatelets or anticoagulation due to bleeding risk; monitor for bleeding -noted elevated free kappa and lamda light chains on SPEP; UPEP with no M spike noted. Following up with Dr. Aguila Status: Chronic (9) Anemia: -chronic macrocytic anemia -baseline Hg is 9-10 -continue to trend Hg; stable so far -has been f/u with Dr. Aguila Status: Chronic Qualifiers: Anemia type: unspecified type Qualified Code(s): D64.9 - Anemia, unspecified (10) Hypertension: -normotensive currently, continue to monitor vital signs -resume diuretics Status: Chronic Qualifiers: Hypertension type: essential hypertension Qualified Code(s): I10 - Essential (primary) hypertension (11) Hyperlipidemia: Status: Chronic Qualifiers: Hyperlipidemia type: mixed hyperlipidemia Qualified Code(s): E78.2 - Mixed hyperlipidemia Additional A&P Information -Morbid obesity: BMI-48 kg/m2 -non-ambulatory at baseline -GERD -NOLA -OA, fibromyalgia, gout -Anxiety/depression -GI ppx with PPI -DVT ppx with SCDs, no AC due to bleeding risk -Dispo: return to [facility]; DPOA in niece aCrolina Lopez. I attempted to reach patient;s DPOACarolina multiple times today, however got voicemail each time. Per review of prior notes and discussion with DPOA, it appears that she understands patient's clinical status and has previously discussed comfort measures at [place] just prior to this hospitalization. She wanted patient to be kept comfortable and trial of UTI treatment with antibiotics to see if mentation will improve before transition back to [facility]. However given that patient continues to deteriorate with regards to renal and liver function, we need to either move to comfort measures or start discussions regarding further treatment options such as dialysis, liver transplant, etc -Code status: DNR/DNI Attestations Medical Necessity Statement*: awaiting to reach family/DPOA to ascretain goals of care moving forward, likely discharge back to [place] if transitioining to comfort care Coding Level of Care Code Acute Network Control Supervisor for [facility] Fwd Diagnoses Altered mental status R41.0 Altered mental status type: delirium Acute hepatic encephalopathy K72.00 Cirrhosis K74.60 Ascites presence: without ascites Hepatic cirrhosis type: unspecified hepatic cirrhosis UTI (urinary tract infection) N30.00 Urinary tract infection type: acute cystitis Hematuria presence: without hematuria Hyponatremia E87.1 Diastolic CHF I50.32 Heart failure chronicity: chronic Acute kidney injury N17.9 Thrombocytopenia D69.6 Anemia D64.9 Anemia type: unspecified type Hypertension I10 Hypertension type: essential hypertension Hyperlipidemia E78.2 Hyperlipidemia type: mixed hyperlipidemia
[2020-01-12 16:00] VITALS: BP 101/66; PULSE 81; RESP 16; TEMP 36.6; O2SAT 98
[2020-01-12 16:55] LABS: Glucose Point of Care 136 mg/dL (70-110)
[2020-01-12 20:00] VITALS: BP 99/63; PULSE 80; RESP 16; TEMP 36.4; O2SAT 98
[2020-01-12 21:53] LABS: Glucose Point of Care 115 mg/dL (70-110)
[2020-01-13] VITALS: BP 107/70; PULSE 78; RESP 16; TEMP 36.4; O2SAT 99
[2020-01-13 04:00] VITALS: BP 122/71; PULSE 79; RESP 16; TEMP 36.3; O2SAT 100
[2020-01-13 07:10] LABS: Glucose Point of Care 116 mg/dL (70-110)
[2020-01-13 07:57] VITALS: BP 112/75; PULSE 81; RESP 16; TEMP 36.6; O2SAT 99
[2020-01-13] MEDS: lactobacillus 1 Tablet 1 TAB PO (08:34)
[2020-01-13] MEDS: duloxetine 30 mg Capsule PO (08:34)
[2020-01-13] MEDS: cholecalciferol (vitamin D3) 1,000 unit Tablet 2000 UNIT PO (08:34)
[2020-01-13] MEDS: lactulose oral liq 20 gm/30 mL UDC PO (08:34)
[2020-01-13] MEDS: pantoprazole DR 40 mg Tablet PO (08:34)
[2020-01-13] MEDS: FUROsemide 20 mg Tablet PO (08:37)
--- NOTE | 2020-01-13 11:23 | P.DS_ITS ---
Discharge Providers Date of Admission: 01/05/20 15:45 Date of Discharge: January 13, 2020 Attending Provider at Admission: Ariana Roberts MD Attending Provider at Discharge: Lucinda Burnette MD Primary Care Provider: Delivs Ortiz DO Diagnoses at Discharge Discharge Diagnosis (1) Altered mental status: Status: Acute Qualifiers: Altered mental status type: delirium Qualified Code(s): R41.0 - Disorientation, unspecified (2) Acute hepatic encephalopathy: Status: Resolved (3) Cirrhosis: Status: Chronic Qualifiers: Ascites presence: without ascites Hepatic cirrhosis type: unspecified hepatic cirrhosis Qualified Code(s): K74.60 - Unspecified cirrhosis of liver (4) UTI (urinary tract infection): Status: Acute Qualifiers: Hematuria presence: without hematuria Urinary tract infection type: acute cystitis Qualified Code(s): N30.00 - Acute cystitis without hematuria (5) Hyponatremia: Status: Acute (6) Diastolic CHF: Status: Chronic Qualifiers: Heart failure chronicity: chronic Qualified Code(s): I50.32 - Chronic diastolic (congestive) heart failure (7) Acute kidney injury: Status: Acute (8) Thrombocytopenia: Status: Chronic (9) Anemia: Status: Chronic Qualifiers: Anemia type: unspecified type Qualified Code(s): D64.9 - Anemia, unspe cified (10) Hypertension: Status: Chronic Qualifiers: Hypertension type: essential hypertension Qualified Code(s): I10 - Essential (primary) hypertension (11) Hyperlipidemia: Status: Chronic Qualifiers: Hyperlipidemia type: mixed hyperlipidemia Qualified Code(s): E78.2 - Mixed hyperlipidemia Reason for Visit Reason for Visit: AMS/ JAUNDICE/ LOW BS Hospital Course Discharge Summary: Sheila Magaña is a 84 year old female with PMHx of Liver cirrhosis, Morbid obesity, CKD stage 5 (not on dialysis), HTN, Hyperlipidemia, Chronic LE lymphedema; presents via ambulance from [place] for evaluation of noted worsening confusion, poor oral intake and decreased responsiveness over the past several days and more chronic decline since July 2019. She has had multiple admissions here for AMS and declining kidney function. She had significant ammonia elevation to 149 upon admission and received lactulose. There was also some concern for UTI with VRE for which she received a 5 day course of linezolid. Her cirrhosis is likely attributed to BRIDGES has known liver cirrhosis complicated by portal hypertension and varices, however she has not had a liver biopsy. her kidney function worsened during course of admission, with poor urine output. GOC discussion were initiated with her neice DPOA Carolina Jones.She understands patient's clinical status and has previously discussed comfort measures at [place] just prior to this hospitalization. Her mental status is marginally improved but continues to wax and wane and this is likely her new baseline. Patient has possibly developed end stage liver disease and heptorenal syndrome as a result. the next steps from here on would be at a minimum to obtain a liver biopsy and get nephrology evaluation and assess for possible dialysis. Per patient's previously known wishes, she had not wanted any aggressive measures to sustain life including, but not limited to CPR, feeding tubes, dialysis, transplant etc. She has previosuly seen her friends undergo the same and beleived that they were distressed by such interventions and would prefer to be comfortable if she was to decline to the point of needing such interventions. Without liver biopsy/assessment for possible transplants, assessment for dialysis, it is likely that her decline will be progressive and short term treatment directed towards encephalopathy,bleeding, hydration, etc will not change the eventual outcome. In light of the latter and patient's last known wishes, [facility] This includes [facility], symptom management as far as possible, pain control, dysphagia diet, etc. She is being discharged back to intermediate with overall goals of being kept comfortable/comfort measures only. Physical Exam Narrative: EXAM NARRATIVE: GEN: Awake,, no acute distress disoriented CVS: S1S2 N RS: CTA B/L Abd: Soft, nt/nd , bs+ Urinary Catheter Management^: Anne: Cath Placed During This Visit: yes, but has since been removed by the nurse Urethral Indwelling: Yes Reason for Continuing Indwelling Catheter: Not indwelling catheter Urinary Catheter Date of Insertion: 01/05/20 Urinary Catheter Time of Insertion: 15:50 Date Urinary Catheter Removed: 01/10/20 Time Urinary Catheter Discontinued: 10:30 Discharge Data Data Completed and Pending: Completed Studies During Hospitalization Category Date Time Status CT head wo con* 7 0450 Urgent Cat Scan 01/05/20 14:53 Completed XR chest 1V angelika ble [id number] Urgent Exams 01/05/20 14:41 Completed Labs from last 24 hours 06/10/2901/12/20 01/12/20 06:20 21:36 16:51 POC Glucose 116 115 136 Vitals: Last Vital Signs Temp 97.9 F 01/13/20 07:57 Pulse 81 01/13/20 07:57 Resp 16 01/13/20 07:57 BP 112/75 01/13/20 07:57 Pulse Ox 99 01/13/20 07:57 Discharge Plan Discharge Patient Disposition: Xfer SNF Condition: Stable Prescriptions: Continued cholecalciferol (vitamin D3) 2,000 unit tablet 2,000 unit PO DAILY RF: 0 lactulose 20 gram/30 mL Solution 10 g PO BID Qty: 30 RF: 0 atenolol 25 mg tablet 25 mg PO DAILY 30 Days Qty: 30 RF: 0 duloxetine 30 mg Capsule,Delayed Release(Dr/Ec) 30 mg PO DAILY 30 Days Qty: 30 RF: 0 furosemide [Lasix] 40 mg tablet 40 mg PO BID Qty: 60 RF: 0 meclizine 25 mg Tablet 25 mg PO BID PRN (Reason: Vertigo) RF: 0 Dulcolax (bisacodyl) 10 mg Suppository 10 mg MS DAILY PRN (Reason: Constipation) RF: 0 Protonix 40 mg Tablet,Delayed Release (Dr/Ec) 40 mg PO BID RF: 0 Culturelle 10 billion cell Capsule 1 cap PO DAILY RF: 0 Xifaxan 550 mg Tablet 550 mg PO BID RF: 0 Lymphedema Wraps See Rx Instructions .ROUTE .COMPLEX RF: 0 Discharge Orders: Discharge Order (Routine); Ordered 01/13/20 Ordered By: Lucinda Burnette Referrals: Delvis Ortiz DO [Primary Care Provider] - 01/19/20 11:50 am Discharge Diet: Soft Mechanical Discharge Activity: Resume usual activity Patient Instructions: Urinary Tract Infection in Women (DC), Altered Mental Status (GEN) Activity Restrictions/Additional Instructions: After discusson with patient DPOA, it has been decided to proceed with palliative/comfort care measures for patient with overall goals to keep her comfortable. This includes minimizing hospital transfers. 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 [facility] Fwd Diagnoses Altered mental status R41.0 Altered mental status type: delirium Acute hepatic encephalopathy K72.00 Cirrhosis K74.60 Ascites presence: without ascites Hepatic cirrhosis type: unspecified hepatic cirrhosis UTI (urinary tract infection) N30.00 Hematuria presence: without hematuria Urinary tract infection type: acute cystitis Hyponatremia E87.1 Diastolic CHF I50.32 Heart failure chronicity: chronic Acute kidney injury N17.9 Thrombocytopenia D69.6 Anemia D64.9 Anemia type: unspecified type Hypertension I10 Hypertension type: essential hypertension Hyperlipidemia E78.2 Hyperlipidemia type: mixed hyperlipidemia
[2020-01-13 11:59] VITALS: BP 138/58; PULSE 79; RESP 16; TEMP 36.8; O2SAT 93
[2020-01-13 12:02] LABS: Glucose Point of Care 102 mg/dL (70-110)
--- NOTE | 2020-01-13 14:11 | PC.NURSE ---
Addendum entered by Nuris Bhakta RN 01/13/20 15:04: Patient's IV was removed at this time and was intact. Original Note: Report called to Ariana GARCIA at [facility] at this time. Patient is alert to self. Patient has not required any pain medications today.
--- NOTE | 2020-01-13 14:13 | PC.NURSE ---
PCS faxed to [facility] at this time.
[2020-01-13 15:17] VITALS: BP 138/58; PULSE 79; RESP 16; TEMP 36.8; O2SAT 93
--- NOTE | 2020-01-13 15:18 | PC.NURSE ---
Patient moved to EMS cot x 3 persons this screenplay writer included. Patient's teeth sent with EMS back to [facility] where she currently lives. Patient is alert to self.
== END 2020-01-13 15:18 | disposition home or self-care (01) | DRG 441 ==
LOC: ER 15:46 → MEDSURG 22:45
PROVIDERS: Emergency Medicine; Admitting Provider Family Medicine; PCP Electrodiagnostic Medicine; Visit Provider Student in an Organized Health Care Education/Training Program
DX: K72.00 Acute and subacute hepatic failure without coma (principal); G93.41 Metabolic encephalopathy; Z68.42 Body mass index [BMI] 45.0-49.9, adult; I13.2 Hypertensive heart and chronic kidney disease with heart failure and with stage 5 chronic kidney disease, or end stage renal disease; N18.5 Chronic kidney disease, stage 5; I50.32 Chronic diastolic (congestive) heart failure; N30.00 Acute cystitis without hematuria; E87.1 Hypo-osmolality and hyponatremia; N17.9 Acute kidney failure, unspecified; K76.6 Portal hypertension; E66.01 Morbid (severe) obesity due to excess calories; E11.22 Type 2 diabetes mellitus with diabetic chronic kidney disease; E78.2 Mixed hyperlipidemia; M79.7 Fibromyalgia; K21.9 Gastro-esophageal reflux disease without esophagitis; G47.419 Narcolepsy without cataplexy; M19.90 Unspecified osteoarthritis, unspecified site; G47.33 Obstructive sleep apnea (adult) (pediatric); E53.8 Deficiency of other specified B group vitamins; E55.9 Vitamin D deficiency, unspecified; Z87.891 Personal history of nicotine dependence; D69.6 Thrombocytopenia, unspecified; Z66 Do not resuscitate; D63.1 Anemia in chronic kidney disease
CPT/HCPCS: 12345; 36415; 36416; 51702; 51798; 70450; 71045; 80048; 80053; 80307; 81001; 82140; 82247; 82248; 82962; 83010; 83615; 85025; 85610; 87077; 87086; 87186; 93005; 99283; J0696; J0744; J2020; J7030; J7799; P9047